=== PATIENT | female | born 1955 | race Caucasian/White ===

== ENCOUNTER 2016-10-15 09:28 | Day surgery (SDC) | payer OTHER ==
[~2016-10-15 09:28] MED LIST: Lactated Ringers 1,000 ML IV SCH; Lidocaine 1%/Sod Bicarbonate in NS 8.4% 1 ML Syringe PRN; Sodium Chloride 0.9% 10 ML Syringe FLUSH PRN
--- NOTE | 2016-10-15 09:55 | PCM.PREANE ---
Preanesthetic Assessment - Anesthesia/Transfusion/Family Hx Anesthesia History: Prior Anesthesia Without Reaction Family History of Anesthesia Reaction: No Transfusion History: No Prior Transfusion(s) - Review of Systems General: No Symptoms Pulmonary: No Symptoms Cardiovascular: No Symptoms Gastrointestinal: Difficulty swallowing Neurological: No Symptoms Other: Reports: Diabetes, Thyroid Problems - Physical Assessment NPO Status Date: 10/14/16 NPO Status Time: 19:00 (sip with pills this am) Pulse: 63 O2 Sat by Pulse Oximetry: 94 Respiratory Rate: 17 Blood Pressure: 130/59 Temperature: 96.7 F Height: 5 ft 4 in Weight: 73.21 kg ASA Class: 2 Mental Status: Alert & Oriented x3 Airway Class: Mallampati = 1 Dentition: Reports: Normal Dentition Thyro-Mental Finger Breadths: 3 Mouth Opening Finger Breadths: 3 ROM/Head Extension: Full Lungs: Clear to auscultation, Normal respiratory effort Cardiovascular: Regular Rate, Regular Rhythm - Allergies Allergies/Adverse Reactions: Allergies Allergy/AdvReac Type Severity Reaction Status Date / Time Sulfa (Sulfonamide Allergy Rash Verified 10/14/16 15:21 Antibiotics) tetracycline Allergy Rash Verified 10/14/16 15:21 ciprofloxacin [From Cipro] AdvReac Dizziness Verified 10/15/16 07:06 metronidazole [From Flagyl] AdvReac Dizziness Verified 10/15/16 07:06 - Blood Blood Available: No - Acknowledgements Anesthesia Type Planned: MAC Pt an Appropriate Candidate for the Planned Anesthesia: Yes Alternatives and Risks of Anesthesia Discussed w Pt/Guardian: Yes Pt/Guardian Understands and Agrees with Anesthesia Plan: Yes PreAnesthesia Questionnaire HEENT History: Reports: Allergic Rhinitis, Impaired Vision Cardiovascular History: Reports: High Cholesterol Respiratory History: Reports: Asthma Gastrointestinal History: Reports: Other (See Below) Other Gastrointestinal History: dysphagia SUSTAINABILITY MANAGER History: Reports: None Musculoskeletal History: Reports: Arthritis, Other (See Below) Other Musculoskeletal History: chronic hip pain, scoliosis Neurological History: Reports: None Psychiatric History: Reports: None Endocrine/Metabolic History: Reports: Hypothyroidism Hematologic History: Reports: None Immunologic History: Reports: None Oncologic (Cancer) History: Reports: None Dermatologic History: Reports: Cellulitis - Past Surgical History Head Surgeries/Procedures: Reports: None HEENT Surgical History: Reports: Naso-Sinus Surgery GI Surgical History: Reports: Appendectomy, Colonoscopy Female Surgical History: Reports: Section, Hysterectomy Endocrine Surgical History: Reports: Other (See Below) Other Endocrine Surgeries/Procedures: partial thyroidectomy Musculoskeletal Surgical History: Reports: Other (See Below) Other Musculoskeletal Surgeries/Procedures:: carpal tunnel surgery - SUBSTANCE USE Smoking Status *Q: Never Smoker Tobacco Use Within Last Twelve Months: No Second Hand Smoke Exposure: No Days Per Week of Alcohol Use: 3 Number of Drinks Per Day: 2 Total Drinks Per Week: 6 Recreational Drug Use History: No - HOME MEDS Home Medications: Home Meds Aspirin [Ecotrin] 81 mg PO DAILY 10/14/16 [History] Cetirizine [ZyrTEC] 10 mg PO BEDTIME 10/14/16 [History] Fish Oil/[place]-3 Fatty Acids [Fish Oil 1,000 MG] 1,000 mg PO DAILY 10/14/16 [ History] Flaxseed Oil [Flax Oil] 1,000 mg PO DAILY 10/14/16 [History] Gluc 2KCl/Chondr/Bere Hy/Hy Ac [Glucosamine & Chondroitin Cap] 1 cap PO BID [History] Levothyroxine [Synthroid] 100 mcg PO DAILY 10/14/16 [History] Meloxicam 15 mg PO DAILY 10/14/16 [History] Multivitamin [Flintstones] 1 tab PO DAILY 10/14/16 [History] Pyridoxine HCl [Vitamin B-6] 100 mg PO BID 10/14/16 [History] Rosuvastatin Calcium 5 mg PO DAILY 10/14/16 [History] Ubidecarenone [Coq-10] 100 mg PO DAILY 10/14/16 [History] traMADol [Ultram] 50 mg PO DAILY PRN 10/14/16 [History] metFORMIN HCl [Metformin HCl ER] 750 mg PO DAILY 10/15/16 [History] - CURRENT (IN HOUSE) MEDS Current Meds: Current Medications Lactated Ringer's (Ringers, Lactated) 1,000 mls @ 125 mls/hr IV ASDIRECTED FARHAT Stop: 10/15/16 23:00 Lidocaine/Sodium Bicarbonate (Buffered Lidocaine 1% In Ns 8.4%) 0.25 ml .XX ONETIME PRN PRN Reason: Prior to IV Start Stop: 10/15/16 18:00 Sodium Chloride (Saline Flush) 10 ml FLUSH ASDIRECTED PRN PRN Reason: Keep Vein Open Stop: 10/15/16 18:00
[2016-10-15] MEDS ORDERED: Propofol 200 MG/20 ML SDV ONE (11:22)
--- NOTE | 2016-10-15 11:22 | PCM48HPAN ---
Post Anesthesia Note - EVALUATION WITHIN 48HRS OF ANESTHETIC Vital Signs in Normal Range: Yes Patient Participated in Evaluation: Yes Respiratory Function Stable: Yes Airway Patent: Yes Cardiovascular Function Stable: Yes Hydration Status Stable: Yes Pain Control Satisfactory: Yes Nausea and Vomiting Control Satisfactory: Yes Mental Status Recovered: Yes
--- NOTE | 2016-10-15 11:25 | PCM.OPNOTE ---
- General Post-Op/Procedure Note Date of Surgery/Procedure: 10/15/16 Operative Procedure(s): Esophagogastroduodenoscopy with proximal and distal esophageal biopsies Findings: Moderate size sliding hiatal hernia with endoscopic mild GE junction esophagitis Pre Op Diagnosis: Dysphagia Post-Op Diagnosis: 1. Symptomatic hiatal hernia. 2. Mild grade 1 esophagitis Anesthesia Technique: MAC, Moderate sedation Primary Surgeon: Michael Sadler Pathology: Proximal (at 10 cm ) and distal esophageal biopsies EBL in mLs: 0 Complications: None Condition: Good Free Text/Narrative:: After adequate IV sedation and analgesia was obtained with monitoring the patient was placed on her left side. Through a bite block a lubricated upper endoscope was inserted into the esophagus and advanced under direct vision to the stomach. Additional air was given here followed by passive of the scope into the second part of the duodenum. The second and first portions were endoscopically normal with no inflammatory changes. The antrum was unremarkable as well endoscopic. In the retroflexed view there was a moderate size sliding hiatal hernia. The fundus and cardiac regions were normal. The rugal folds were grossly normal as well. The scope was withdrawn into the herniated segment of stomach. There are no stasis change in this area. The GE junction was sharp and was remarkable for mild erythematous change and slightly friable in one area. I took 2 biopsies for histologic review. At 10 cm from the incisors I took 2 more esophageal biopsies for histologic review. The body of the esophagus was otherwise unremarkable. The vocal cords were briefly visualized and were grossly normal. Hospitality Housekeeper photographs were taken for the patient and for the record.
[2016-10-15 12:19] VITALS: BP 118/52
== END 2016-10-15 12:00 | disposition home or self-care (01) ==
LOC: JD.SDS 09:28
PROVIDERS: ATTEND Surgery
PROC: 0DB58ZX Excision of Esophagus, Via Natural or Artificial Opening Endoscopic, Diagnostic (ICD-10-PCS; principal; 2016-10-15)
DX: K21.0 Gastro-esophageal reflux disease with esophagitis (principal); K44.9 Diaphragmatic hernia without obstruction or gangrene; M19.90 Unspecified osteoarthritis, unspecified site; J45.909 Unspecified asthma, uncomplicated; E78.00 Pure hypercholesterolemia, unspecified; E78.5 Hyperlipidemia, unspecified; E89.0 Postprocedural hypothyroidism; M25.559 Pain in unspecified hip; G89.29 Other chronic pain; Z88.1 Allergy status to other antibiotic agents; Z88.2 Allergy status to sulfonamides; Z79.82 Long term (current) use of aspirin; Z79.899 Other long term (current) drug therapy; Z90.49 Acquired absence of other specified parts of digestive tract; Z90.710 Acquired absence of both cervix and uterus; Z98.890 Other specified postprocedural states
CPT/HCPCS: 43239; 82962; 88305; J7120; J2704

== ENCOUNTER 2017-01-08 16:47 | Inpatient (IN) | payer OTHER ==
[2017-01-08] MEDS ORDERED: Albuterol 0.083% 2.5 MG/3 ML Neb Soln NEB ONE ×3 (17:01→18:32)
[2017-01-08] MEDS ORDERED: Sodium Chloride 0.9% 10 ML Syringe FLUSH PRN (17:01)
[2017-01-08] MEDS ORDERED: Sodium Chloride 0.9% 500 ML IV ONE (17:01)
--- NOTE | 2017-01-08 17:02 | EDM.PDOC ---
<Caprice Gillespie - Last Filed: 01/08/17 22:36> ED HPI GENERAL MEDICAL PROBLEM - General Chief Complaint: Respiratory Problem Stated Complaint: SOB Time Seen by Provider: 01/08/17 17:01 Source of Information: Reports: Patient, RN Notes Reviewed History Limitations: Reports: No Limitations - History of Present Illness INITIAL COMMENTS - FREE TEXT/NARRATIVE: 61 year old female presents to the ED with sudden onset of shortness of breath and diaphoresis that started this morning. She reports a 4 day history of fatigue, body aches, and joint pain. Today she suddenly developed the shortness of breath and became diaphoretic. She reports feeling feverish and chilled at times. She has not checked her temperature. She denies cough, chest pain, lower extremity edema. She has no history of cardiac history or CHF. She reports a history of asthma but denies any recent asthma symptoms prior to today. She denies any other pulmonary conditions. She denies unilateral calf pain, erythema or swelling. She has no history of clotting disorders. She is not on any hormone replacement therapy. She drove to [place] last weekend and was in [place] over Labor Day weekend. She denies rash or tick bite. She does have a mosquito bite to her right arm and is unsure when she was bit. She denies abdominal pain, nausea, vomiting, or diarrhea. She denies urinary symptoms. She denies any additional medical history. - Related Data Allergies Allergy/AdvReac Type Severity Reaction Status Date / Time Sulfa (Sulfonamide Allergy Rash Verified 01/09/17 01:21 Antibiotics) tetracycline Allergy Rash Verified 01/09/17 01:21 ciprofloxacin [From Cipro] AdvReac Dizziness Verified 01/09/17 01:21 metronidazole [From Flagyl] AdvReac Dizziness Verified 01/09/17 01:21 Home Meds: Home Meds Aspirin [Ecotrin] 81 mg PO DAILY 10/14/16 [History] Cetirizine [ZyrTEC] 10 mg PO BEDTIME 10/14/16 [History] Fish Oil/[place]-3 Fatty Acids [Fish Oil 1,000 MG] 1,000 mg PO DAILY 10/14/16 [ History] Flaxseed Oil [Flax Oil] 1,000 mg PO DAILY 10/14/16 [History] Gluc 2KCl/Chondr/Bere Hy/Hy Ac [Glucosamine & Chondroitin Cap] 1 cap PO BID [History] Levothyroxine [Synthroid] 100 mcg PO DAILY 10/14/16 [History] Meloxicam 15 mg PO DAILY 10/14/16 [History] Multivitamin [Flintstones] 1 tab PO DAILY 10/14/16 [History] Pyridoxine HCl [Vitamin B-6] 100 mg PO BID 10/14/16 [History] Rosuvastatin Calcium 5 mg PO DAILY 10/14/16 [History] Ubidecarenone [Coq-10] 100 mg PO DAILY 10/14/16 [History] traMADol [Ultram] 50 mg PO DAILY PRN 10/14/16 [History] metFORMIN HCl [Metformin HCl ER] 750 mg PO DAILY 10/15/16 [History] Past Medical History HEENT History: Reports: Allergic Rhinitis, Impaired Vision Cardiovascular History: Reports: High Cholesterol Respiratory History: Reports: Asthma Gastrointestinal History: Reports: Other (See Below) Other Gastrointestinal History: dysphagia [employer]CH[employer]ICIAN History: Reports: None Musculoskeletal History: Reports: Arthritis, Other (See Below) Other Musculoskeletal History: chronic hip pain, scoliosis Neurological History: Reports: None Psychiatric History: Reports: None Endocrine/Metabolic History: Reports: Hypothyroidism Hematologic History: Reports: None Immunologic History: Reports: None Oncologic (Cancer) History: Reports: None Dermatologic History: Reports: Cellulitis - Past Surgical History Head Surgeries/Procedures: Reports: None HEENT Surgical History: Reports: Naso-Sinus Surgery GI Surgical History: Reports: Appendectomy, Colonoscopy Female Surgical History: Reports: Section, Hysterectomy Endocrine Surgical History: Reports: Other (See Below) Other Endocrine Surgeries/Procedures: partial thyroidectomy Musculoskeletal Surgical History: Reports: Other (See Below) Other Musculoskeletal Surgeries/Procedures:: carpal tunnel surgery Social & Family History - Tobacco Use Smoking Status *Q: Never Smoker Second Hand Smoke Exposure: No - Alcohol Use Days Per Week of Alcohol Use: 3 Number of Drinks Per Day: 2 Total Drinks Per Week: 6 - Recreational Drug Use Recreational Drug Use: No Drug Use in Last 12 Months: No ED ROS GENERAL - Review of Systems Review Of Systems: See Below Constitutional: Reports: Malaise, Weakness, Fatigue, Diaphoresis. Denies: Fever Respiratory: Reports: Shortness of Breath, Wheezing. Denies: Pleuritic Chest Pain, Cough Cardiovascular: Reports: Dyspnea on Exertion. Denies: Chest Pain, Edema, Palpitations, Syncope GI/Abdominal: Reports: No Symptoms. Denies: Abdominal Pain, Constipation, Diarrhea, Nausea, Vomiting : Reports: No Symptoms. Denies: Dysuria, Flank Pain, Frequency Musculoskeletal: Reports: Joint Pain Skin: Reports: No Symptoms. Denies: Rash Neurological: Denies: Confusion, Dizziness, Numbness, Tingling, Weakness ED EXAM, GENERAL - Physical Exam Exam: See Below Exam Limited By: No Limitations General Appearance: Alert, WD/WN, Anxious, Moderate Distress Eye Exam: Bilateral Eye: EOMI, PERRL Respiratory/Chest: Respiratory Distress, Decreased Breath Sounds, Crackles, Rhonchi (diffuse ), Wheezing (diffuse ) Cardiovascular: No Edema, No Murmur, Tachycardia GI/Abdominal: Normal Bowel Sounds, Soft, Non-Tender, No Distention Extremities: Normal Inspection, Normal Range of Motion, Non-Tender, Redness. No : Gerri's Sign Neurological: Alert, No Motor/Sensory Deficits Skin Exam: Warm, Intact, Normal Color, No Rash, Diaphoretic EKG INTERPRETATION EKG Date: 01/08/17 Time: 16:56 Rhythm: NSR (Sinus tach) Rate (Beats/Min): 123 [place]: Normal P-Wave: Present QRS: Normal ST-T: Normal QT: Normal EKG Interpretation Comments: EKG read by Dr. Brooke Link. NSR, No STEMI Course - Vital Signs Last Recorded V/S: Last Vital Signs Temp 36.6 C 01/09/17 04:00 Pulse 102 H 01/09/17 02:00 Resp 25 H 01/09/17 06:00 BP 123/74 01/09/17 06:00 Pulse Ox 96 01/09/17 06:00 - Orders/Labs/Meds Orders: Active Orders 24 hr Category Date Time Status Chest Abdomen Pelvis wo Cont [CT] Stat Exams 01/08/17 18:14 Ordered CULTURE BLOOD [BC] Stat Lab 01/08/17 17:23 Received CULTURE BLOOD [BC] Stat Lab 01/08/17 17:32 Results Sodium Chloride 0.9% [Saline Flush] Med 01/08/17 17:01 Active 10 ml FLUSH ASDIRECTED PRN Blood Culture x2 Reflex Set [OM.PC] Stat Oth 01/08/17 17:00 Ordered Peripheral IV Insertion Adult [OM.PC] Stat Oth 01/08/17 17:01 Ordered EKG 12 Lead [EK] Stat Ther 01/08/17 17:00 Ordered Medication Orders Acetaminophen (Tylenol) 650 mg PO Q4H PRN PRN Reason: Pain (Mild 1-3)/fever Albuterol/Ipratropium (Duoneb 3.0-0.5 Mg/3 Ml) 3 ml NEB Q4H PRN PRN Reason: Shortness Of Breath/wheezing Aspirin (Halfprin) 81 mg PO DAILY [facility] Bisacodyl (Dulcolax) 5 mg PO DAILY PRN PRN Reason: Constipation Docusate Sodium (Colace) 100 mg PO BID PRN PRN Reason: Constipation Hydralazine HCl (Apresoline) 20 mg IVPUSH Q4H PRN PRN Reason: Hypertension Hydrocortisone Sodium Succinate (Solu-Cortef) 100 mg IVPUSH Q6H [facility] Last Admin: 01/09/17 02:19 Dose: 100 mg Admin: 01/08/17 22:40 Dose: 100 mg Hydromorphone HCl (Dilaudid) 1 mg IVPUSH Q3H PRN PRN Reason: Pain (severe 7-10) Lactated Ringer's (Ringers, Lactated) 1,000 mls @ 999 mls/hr IV ASDIRECTED [facility] Last Admin: 01/08/17 23:36 Dose: 999 mls/hr Infusion: 01/08/17 23:19 Dose: 999 mls/hr Admin: 01/08/17 22:18 Dose: 999 mls/hr Promethazine HCl 12.5 mg/ (Sodium Chloride) 50.5 mls @ 100 mls/hr IV Q6H PRN PRN Reason: Nausea/Vomiting Levofloxacin/Dextrose 750 mg/ (Premix) 150 mls @ 100 mls/hr IV Q48H [facility] Meropenem 1 gm/ Sodium (Chloride) 100 mls @ 200 mls/hr IV Q8H [facility] Last Admin: 01/09/17 04:03 Dose: 200 mls/hr Infusion: 01/08/17 22:46 Dose: 200 mls/hr Admin: 01/08/17 22:16 Dose: 200 mls/hr Vancomycin HCl 1 gm/ Sodium (Chloride) 250 mls @ 250 mls/hr IV Q24H [facility] Last Admin: 01/08/17 22:17 Dose: 250 mls/hr Sodium Chloride (Normal Saline) 1,000 mls @ 250 mls/hr IV ASDIRECTED [facility] Last Admin: 01/09/17 04:40 Dose: 250 mls/hr Infusion: 01/09/17 04:37 Dose: 250 mls/hr Admin: 01/09/17 00:37 Dose: 250 mls/hr Levothyroxine Sodium (Synthroid) 100 mcg PO DAILY [facility] Loratadine (Claritin) 10 mg PO BEDTIME [facility] Last Admin: 01/08/17 22:17 Dose: 10 mg Lorazepam (Ativan) 2 mg IVPUSH Q4H PRN PRN Reason: Seizures Lorazepam (Ativan) 1 mg IVPUSH Q3H PRN PRN Reason: dyspnea, anxiety Last Admin: 01/09/17 02:19 Dose: 1 mg Magnesium Hydroxide (Milk Of Magnesia) 30 ml PO Q12H PRN PRN Reason: Constipation Metoprolol Tartrate (Lopressor) 5 mg IVPUSH Q4H PRN PRN Reason: Tachycardia Morphine Sulfate (Morphine) 1 mg IVPUSH Q4H PRN PRN Reason: Dyspnea Last Admin: 01/09/17 02:19 Dose: 1 mg Multivitamins (Thera) 1 each PO DAILY [facility] Non-Formulary Medication (Ubidecarenone) 100 mg PO DAILY [facility] Ondansetron HCl (Zofran) 4 mg IV Q6H PRN PRN Reason: Nausea/Vomiting Oxycodone HCl (Oxycodone) 5 mg PO Q4H PRN PRN Reason: Pain (moderate 4-6) Pantoprazole Sodium (Protonix Iv) 40 mg IV Q12HR [facility] Last Admin: 01/08/17 22:16 Dose: 40 mg Polyethylene Glycol (Miralax) 17 gm PO DAILY PRN PRN Reason: Constipation Pyridoxine HCl (Vitamin B6-Pyridoxine) 100 mg PO BID [facility] Last Admin: 01/08/17 22:17 Dose: 100 mg Senna/Docusate Sodium (Senna Plus) 1 tab PO BID PRN PRN Reason: Constipation Sodium Chloride (Saline Flush) 10 ml FLUSH ASDIRECTED PRN PRN Reason: Keep Vein Open Last Admin: 01/08/17 17:47 Dose: 10 ml Temazepam (Restoril) 15 mg PO BEDTIME PRN PRN Reason: Sleep Tramadol HCl (Ultram) 50 mg PO DAILY PRN PRN Reason: Pain Vancomycin HCl (Pharmacy To Dose - Vancomycin) 0 dose .XX ASDIRECTED PRN PRN Reason: RX TO DOSE IV VANCOMYCIN Labs: Laboratory Tests 01/08/17 01/08/17 01/08/17 Range/Units 17:00 17:00 17:00 WBC 19.11 H (3.98-10.04) K/mm3 RBC 6.15 H (3.98-5.22) M/mm3 Hgb 18.8 H (11.2-15.7) gm/L Hct 54.5 H (34.1-44.9) % MCV 88.6 (79.4-94.8) fl MCH 30.6 (25.6-32.2) pg MCHC 34.5 (32.2-35.5) g/dl RDW Std Deviation 43.7 (36.4-46.3) fL Plt Count 46 L (182-369) K/mm3 MPV 11.8 (9.4-12.3) fl Neutrophils % (Manual) 62 H (40-60) % Band Neutrophils % 11 H (0-10) % Lymphocytes % (Manual) 23 (20-40) % Atypical Lymphs % 0 % Monocytes % (Manual) 0 L (2-10) % Eosinophils % (Manual) 2 (0.7-5.8) % Basophils % (Manual) 2 H (0.1-1.2) Platelet Estimate Decreased Plt Morphology Comment Normal RBC Morph Comment Normal PT (8.0-13.0) SECONDS INR APTT (22-36) SECONDS D-Dimer, Quantitative 1.34 H (0.19-0.59) mg/L Sodium 137 (136-145) mEq/L Potassium 3.7 (3.5-5.1) mEq/L Chloride 101 (98-107) mEq/L Carbon Dioxide 14 L (21-32) mEq/L Anion Gap 25.7 H (5-15) BUN 37 H (7-18) mg/dL Creatinine 2.1 H (0.55-1.02) mg/dL Est Cr Clr Drug Dosing 23.57 mL/min Estimated GFR (MDRD) 24 (>60) mL/min BUN/Creatinine Ratio 17.6 (14-18) Glucose 150 H (74-106) mg/dL Lactic Acid (0.4-2.0) mmol/L Calcium 9.2 (8.5-10.1) mg/dL Total Bilirubin 0.9 (0.2-1.0) mg/dL AST 193 H (15-37) U/L ALT 230 H (14-59) U/L Alkaline Phosphatase 373 H (46-116) U/L Troponin I < 0.017 (0.00-0.056) ng/mL C-Reactive Protein 19.6 H* (<1.0) mg/dL NT-Pro-B Natriuret Pep (0-125) pg/mL Total Protein 7.8 (6.4-8.2) g/dl Albumin 3.3 L (3.4-5.0) g/dl Globulin 4.5 gm/dL Albumin/Globulin Ratio 0.7 L (1-2) Monoscreen (NEGATIVE) 01/08/17 01/08/17 01/08/17 Range/Units 17:00 17:00 17:08 WBC (3.98-10.04) K/mm3 RBC (3.98-5.22) M/mm3 Hgb (11.2-15.7) gm/L Hct (34.1-44.9) % MCV (79.4-94.8) fl MCH (25.6-32.2) pg MCHC (32.2-35.5) g/dl RDW Std Deviation (36.4-46.3) fL Plt Count (182-369) K/mm3 MPV (9.4-12.3) fl Neutrophils % (Manual) (40-60) % Band Neutrophils % (0-10) % Lymphocytes % (Manual) (20-40) % Atypical Lymphs % % Monocytes % (Manual) (2-10) % Eosinophils % (Manual) (0.7-5.8) % Basophils % (Manual) (0.1-1.2) Platelet Estimate Plt Morphology Comment RBC Morph Comment PT 12.1 (8.0-13.0) SECONDS INR 1.10 APTT 42 H (22-36) SECONDS D-Dimer, Quantitative (0.19-0.59) mg/L Sodium (136-145) mEq/L Potassium (3.5-5.1) mEq/L Chloride (98-107) mEq/L Carbon Dioxide (21-32) mEq/L Anion Gap (5-15) BUN (7-18) mg/dL Creatinine (0.55-1.02) mg/dL Est Cr Clr Drug Dosing mL/min Estimated GFR (MDRD) (>60) mL/min BUN/Creatinine Ratio (14-18) Glucose (74-106) mg/dL Lactic Acid (0.4-2.0) mmol/L Calcium (8.5-10.1) mg/dL Total Bilirubin (0.2-1.0) mg/dL AST (15-37) U/L ALT (14-59) U/L Alkaline Phosphatase (46-116) U/L Troponin I (0.00-0.056) ng/mL C-Reactive Protein (<1.0) mg/dL NT-Pro-B Natriuret Pep 334 H (0-125) pg/mL Total Protein (6.4-8.2) g/dl Albumin (3.4-5.0) g/dl Globulin gm/dL Albumin/Globulin Ratio (1-2) Monoscreen Negative (NEGATIVE) 01/08/17 Range/Units 17:23 WBC (3.98-10.04) K/mm3 RBC (3.98-5.22) M/mm3 Hgb (11.2-15.7) gm/L Hct (34.1-44.9) % MCV (79.4-94.8) fl MCH (25.6-32.2) pg MCHC (32.2-35.5) g/dl RDW Std Deviation (36.4-46.3) fL Plt Count (182-369) K/mm3 MPV (9.4-12.3) fl Neutrophils % (Manual) (40-60) % Band Neutrophils % (0-10) % Lymphocytes % (Manual) (20-40) % Atypical Lymphs % % Monocytes % (Manual) (2-10) % Eosinophils % (Manual) (0.7-5.8) % Basophils % (Manual) (0.1-1.2) Platelet Estimate Plt Morphology Comment RBC Morph Comment PT (8.0-13.0) SECONDS INR APTT (22-36) SECONDS D-Dimer, Quantitative (0.19-0.59) mg/L Sodium (136-145) mEq/L Potassium (3.5-5.1) mEq/L Chloride (98-107) mEq/L Carbon Dioxide (21-32) mEq/L Anion Gap (5-15) BUN (7-18) mg/dL Creatinine (0.55-1.02) mg/dL Est Cr Clr Drug Dosing mL/min Estimated GFR (MDRD) (>60) mL/min BUN/Creatinine Ratio (14-18) Glucose (74-106) mg/dL Lactic Acid 4.4 H (0.4-2.0) mmol/L Calcium (8.5-10.1) mg/dL Total Bilirubin (0.2-1.0) mg/dL AST (15-37) U/L ALT (14-59) U/L Alkaline Phosphatase (46-116) U/L Troponin I (0.00-0.056) ng/mL C-Reactive Protein (<1.0) mg/dL NT-Pro-B Natriuret Pep (0-125) pg/mL Total Protein (6.4-8.2) g/dl Albumin (3.4-5.0) g/dl Globulin gm/dL Albumin/Globulin Ratio (1-2) Monoscreen (NEGATIVE) Meds: Medications Generic Name Dose Route Start Last Admin Trade Name Freq PRN Reason Stop Dose Admin Acetaminophen 650 mg 01/08/17 20:15 Tylenol PO Q4H PRN Pain (Mild 1-3)/fever Albuterol/Ipratropium 3 ml 01/08/17 20:15 Duoneb 3.0-0.5 Mg/3 Ml NEB Q4H PRN Shortness Of Breath/wheezing Aspirin 81 mg 01/09/17 09:00 Halfprin PO DAILY [facility] Bisacodyl 5 mg 01/08/17 20:15 Dulcolax PO DAILY PRN Constipation Docusate Sodium 100 mg 01/08/17 20:15 Colace PO BID PRN Constipation Hydralazine HCl 20 mg 01/08/17 20:25 Apresoline IVPUSH Q4H PRN Hypertension Hydrocortisone Sodium Succinate 100 mg 01/08/17 20:45 01/09/17 02:19 Solu-Cortef IVPUSH 100 mg Q6H [facility] Administration Hydromorphone HCl 1 mg 01/08/17 20:15 Dilaudid IVPUSH Q3H PRN Pain (severe 7-10) Lactated Ringer's 1,000 mls @ 999 mls/hr 01/08/17 20:15 01/08/17 23:36 Ringers, Lactated IV 999 mls/hr ASDIRECTED [facility] Administration Promethazine HCl 12.5 mg/ 50.5 mls @ 100 mls/hr 01/08/17 20:15 Sodium Chloride IV Q6H PRN Nausea/Vomiting Levofloxacin/Dextrose 750 mg/ 150 mls @ 100 mls/hr 01/10/17 09:00 Premix IV Q48H [facility] Meropenem 1 gm/ Sodium 100 mls @ 200 mls/hr 01/08/17 20:45 01/09/17 04:03 Chloride IV 200 mls/hr Q8H [facility] Administration Vancomycin HCl 1 gm/ Sodium 250 mls @ 250 mls/hr 01/08/17 22:00 01/08/17 22: 17 Chloride IV 250 mls/hr Q24H [facility] Administration Sodium Chloride 1,000 mls @ 250 mls/hr 01/09/17 01:00 01/09/17 04:40 Normal Saline IV 250 mls/hr ASDIRECTED [facility] Administration Levothyroxine Sodium 100 mcg 01/09/17 09:00 Synthroid PO DAILY [facility] Loratadine 10 mg 01/08/17 21:00 01/08/17 22:17 Claritin PO 10 mg BEDTIME [facility] Administration Lorazepam 2 mg 01/08/17 20:25 Ativan IVPUSH Q4H PRN Seizures Lorazepam 1 mg 01/09/17 02:07 01/09/17 02:19 Ativan IVPUSH 1 mg Q3H PRN Administration dyspnea, anxiety Magnesium Hydroxide 30 ml 01/08/17 20:15 Milk Of Magnesia PO Q12H PRN Constipation Metoprolol Tartrate 5 mg 01/08/17 20:25 Lopressor IVPUSH Q4H PRN Tachycardia Morphine Sulfate 1 mg 01/09/17 02:06 01/09/17 02:19 Morphine IVPUSH 1 mg Q4H PRN Administration Dyspnea Multivitamins 1 each 01/09/17 09:00 Thera PO DAILY [facility] Non-Formulary Medication 100 mg 01/09/17 09:00 Ubidecarenone PO DAILY [facility] Ondansetron HCl 4 mg 01/08/17 20:15 Zofran IV Q6H PRN Nausea/Vomiting Oxycodone HCl 5 mg 01/08/17 20:22 Oxycodone PO Q4H PRN Pain (moderate 4-6) Pantoprazole Sodium 40 mg 01/08/17 21:00 01/08/17 22:16 Protonix Iv IV 40 mg Q12HR [facility] Administration Polyethylene Glycol 17 gm 01/08/17 20:15 Miralax PO DAILY PRN Constipation Pyridoxine HCl 100 mg 01/08/17 21:00 01/08/17 22:17 Vitamin B6-Pyridoxine PO 100 mg BID [facility] Administration Senna/Docusate Sodium 1 tab 01/08/17 20:15 Senna Plus PO BID PRN Constipation Sodium Chloride 10 ml 01/08/17 17:01 01/08/17 17:47 Saline Flush FLUSH 10 ml ASDIRECTED PRN Administration Keep Vein Open Temazepam 15 mg 01/08/17 20:15 Restoril PO BEDTIME PRN Sleep Tramadol HCl 50 mg 01/08/17 20:14 Ultram PO DAILY PRN Pain Vancomycin HCl 0 dose 01/08/17 20:30 Pharmacy To Dose - Vancomycin .XX ASDIRECTED PRN RX TO DOSE IV VANCOMYCIN Discontinued Medications Generic Name Dose Route Start Last Admin Trade Name Freq PRN Reason Stop Dose Admin Albuterol 2.5 mg 01/08/17 17:01 01/08/17 17:09 Proventil Neb Soln [facility] 01/08/17 17:02 2.5 mg ONETIME ONE Administration Albuterol 2.5 mg 01/08/17 18:31 01/08/17 18:36 Proventil Neb Soln [facility] 01/08/17 18:32 2.5 mg ONETIME ONE Administration Albuterol 2.5 mg 01/08/17 18:32 01/08/17 18:36 Proventil Neb Soln [facility] 01/08/17 18:33 2.5 mg ONETIME ONE Administration Albuterol/Ipratropium 3 ml 01/08/17 18:17 01/08/17 18:28 Duoneb 3.0-0.5 Mg/3 Ml NEB 01/08/17 18:18 3 ml ONETIME ONE Administration Sodium Chloride 500 mls @ 999 mls/hr 01/08/17 17:01 01/08/17 17:08 Normal Saline IV 01/08/17 17:31 999 mls/hr ONETIME ONE Administration Levofloxacin/Dextrose 500 mg/ 100 mls @ 100 mls/hr 01/08/17 17:22 01/08/17 18 :25 Premix IV 01/08/17 18:21 100 mls/hr ONETIME ONE Administration Sodium Chloride Confirm 01/08/17 18:23 01/08/17 18:44 Normal Saline Administered 01/08/17 18:24 Not Given Dose 1,000 mls @ as directed .ROUTE .STK-MED ONE Sodium Chloride 1,000 mls @ 999 mls/hr 01/08/17 18:43 01/08/17 18:20 Normal Saline IV 01/08/17 19:43 999 mls/hr ONETIME ONE Administration Magnesium Sulfate 2 gm/ Premix 50 mls @ 25 mls/hr 01/08/17 19:11 01/08/17 19: 19 IV 01/08/17 21:10 25 mls/hr ONETIME ONE Administration Levofloxacin/Dextrose 750 mg/ 150 mls @ 100 mls/hr 01/08/17 20:26 01/08/17 23 :40 Premix IV 01/08/17 21:55 Not Given ONETIME ONE Lorazepam 0.5 mg 01/08/17 17:10 01/08/17 17:15 Ativan IVPUSH 01/08/17 17:11 0.5 mg ONETIME ONE Administration Lorazepam 1 mg 01/08/17 20:15 01/08/17 22:21 Ativan IV 1 mg Q6H PRN Administration Anxiety Magnesium Sulfate 2 gm 01/08/17 19:00 Magnesium Sulfate 50% IV 01/08/17 19:01 ONETIME ONE Methylprednisolone Sodium Succinate 125 mg 01/08/17 18:31 01/08/17 18:35 Solu-Medrol IVPUSH 01/08/17 18:32 125 mg ONETIME ONE Administration Vancomycin HCl 1 mg 01/08/17 20:30 Vancomycin IV Q12H [facility] - Re-Assessments/Exams Free Text/Narrative Re-Assessment/Exam: [id number] Chest x-ray reveals increased lung markings with possible pulmonary vascular congestion. There is a right lower lobe infiltrate. There is no obvious pleural effusion. Costophrenic angles are normal. Cardiac size is normal. Levaquin 500mg IV ordered. 1800 Labs are back. CBC reveals WBC 19,000 with 11% bands. Platelets are low at 46. CRP is 19.6. Lactic acid 4.4. CMP reveals Na 137, K 3.7, Chloride 101, Carbon dioxide 14, anion gap 25.7, BUn 37, creatinine 2.1, glucose 150. Liver enzymes are elevated. Pro-BNP is 334. Troponin is WNL. INR 1.10. Ptt 42. Blood cultures are pending. D-dimer is elevated at 1.34. Unable to perform PE study at this time due to kidney function. She will likely need VQ scan when stable. 01/08/17 181 The patient remains tachycardic after 1 liter NS bolus. Her BP is 80-90s systolic. She is requiring 6 liters of NC and remains in the high 80s for oxygen saturation. I asked Dr. Brooke Link to see the patient and review her labs. At this time she recommends that we do 3 [id number] nebs due to diffuse wheezing. We will also give Solu-medrol 125mg IV. She also recommends a CT of chest, abdomen, pelvis to evaluate for possible malignancy. 01/08/17 19:00 Patient is more tachypnic with worsening respiratory distress. Dr. Link and I again evaluated the patient. Dr. Link recommends that we try Bipap at this time. She also recommends Mag Sulfate [address] is on hold at this time due to patient's worsening respiratory status. 01/08/17 19:37 Patient's respiratory status is improving on bipap. I spoke to Dr. Fernandes who has accepted care of the patient. She will be admitted to the ICU for Sepsis, hypoxemia, respiratory distress, and pneumonia. Departure - Departure Time of Disposition: 21:49 Disposition: Admitted As Inpatient 67 Condition: Serious Clinical Impression: Septicemia, Hypoxemia, Respiratory distress Pneumonia Qualifiers: Pneumonia type: due to unspecified organism Laterality: right Lung location: lower lobe of lung Qualified Code(s): J18.1 - Lobar pneumonia, unspecified organism - Discharge Information <Brooke Link - Last Filed: 01/09/17 07:52> Course - Re-Assessments/Exams Free Text/Narrative Re-Assessment/Exam: 01/08/17 19:19 Saw at request of Caprice. Briefly, 61 y/o F with questionable asthma but not on inhaled meds, also non-insulin dependent DM, presents with 3 days of worsening malaise, fatigue, and SOB. No chest pain. Feels achy all over. +subjective fever. Here, she is ill appearing, normal mental status, I assessed her after multiple nebs and she continues to have wheezing in all mariano and coarse rales at the R base. CXR suggests pna, I suspect inflammatory reactive airway disease component as well. Getting abx now. Added solu-medrol and magnesium. Given continued marked SOB and tachypnea on nonrebreather after multiple nebs, requested bibap. She is now breathing more comfortably. Mental status normal. SpO2 in 90's. Has additional lab abnormalities - elevated creatinine, mildly elevated LFT's, low platelets. Etiology of these abnormalities not clear - may be prerenal as far as elevated Creatinine goes but she may need further inpatient eval of other abnormalities. Anticipate admission. Critical Care Note - Critical Care Note Total Time (mins): 35
[2017-01-08] MEDS ORDERED: LORazepam 2 MG/ML MDV IVPUSH ONE (17:10)
[2017-01-08] MEDS ORDERED: Levofloxacin/Dextrose 5%-Water 500 MG in Premix Bag 1 BAG IV ONE (17:22)
[2017-01-08] MEDS ORDERED: Albuterol/Ipratropium 3.0-0.5 MG/3 ML Neb Soln NEB ONE (18:17)
[2017-01-08] MEDS ORDERED: Sodium Chloride 0.9% 1,000 ML ONE (18:23)
[2017-01-08] MEDS ORDERED: methylPREDNISolone Sodium Succinate 125 MG/2 ML SDV IVPUSH ONE (18:31)
[2017-01-08] MEDS ORDERED: Sodium Chloride 0.9% 1,000 ML IV ONE (18:43)
[2017-01-08] MEDS ORDERED: Magnesium Sulfate (4.06 MEQ/ML) 1 GM/2 ML SDV IV ONE (19:00)
[2017-01-08] MEDS ORDERED: Magnesium Sulfate/Water 2 GM in Premix Bag 1 BAG IV ONE (19:11)
[2017-01-08] MEDS ORDERED: traMADol 50 MG Tab PO PRN (20:14)
--- NOTE | 2017-01-08 20:14 | PCM.HP ---
H&P History of Present Illness - General Date of Service: 01/08/17 Admit Problem/Dx: Sepsis Source of Information: Patient, Family, Old Records, RN Notes Reviewed History Limitations: Reports: Respiratory Distress - History of Present Illness Initial Comments - Free Text/Narative: This is a 61 year old white female with past medical history of impaired vision , allergic rhinitis, hyperlipidemia, asthma, dysphagia, osteoarthritis, chronic keep pain, scoliosis, hypothyroidism, and DM2 who presents to the emergency department with sudden onset of shortness of breath along with diaphoresis that started this morning. Her chief complaints are associated with history of fatigue, body aches, and joint pain that started 4 days ago. She also admits to feeling feverish and chills at times. She denies any cough, chest pain, or gastrointestinal complaints. Patient carries a history of asthma but no COPD. She denies any history of blood disorders or cardiomyopathy. She denies any unusual dietary drinks. She reports some recent travel to [place] last weekend as well as in [place] over the Weekend. She denies any sick contact. However she feels she may have been bitten by a mosquito to her right arm. Her initial workup in the emergency department shows a CBC remarkable for WBC of 19.11, RBC of 6.15, hemoglobin of 18.8, hematocrit of 54.5, platelet of 46, neutrophils of 62% with bands of 11%, and basophils of 2%. Her APTT is 42 and d- dimer is 1.34. Her chemistry is remarkable for a CO2 of 14, anion gap of 25.7, BUN of 37, creatinine of 2.1, glucose of 150, lactic acid of 4.4, AST of 193, ALT of 230, alkaline phosphatase of 373, C-reactive protein of 19.6, proBNP of 334, and albumin of 3.3. Her initial troponin is negative at less than 0.017. Her chest x-ray shows diffuse increased pulmonary markings. There is a subtle right lower lobe infiltrate. Patient received initial treatment emergency department. She is being admitted for sepsis secondary to probable pneumonia +/- viral illness. She is full code. sore throat Pain Score (Numeric/FACES): 4 headache Pain Score (Numeric/FACES): 4 - Related Data Allergies/Adverse Reactions: Allergies Allergy/AdvReac Type Severity Reaction Status Date / Time Sulfa (Sulfonamide Allergy Rash Verified 01/09/17 01:21 Antibiotics) tetracycline Allergy Rash Verified 01/09/17 01:21 ciprofloxacin [From Cipro] AdvReac Dizziness Verified 01/09/17 01:21 metronidazole [From Flagyl] AdvReac Dizziness Verified 01/09/17 01:21 Home Medications: Home Meds Aspirin [Ecotrin] 81 mg PO DAILY 10/14/16 [History] Cetirizine [ZyrTEC] 10 mg PO BEDTIME 10/14/16 [History] Fish Oil/[place]-3 Fatty Acids [Fish Oil 1,000 MG] 1,000 mg PO DAILY 10/14/16 [ History] Flaxseed Oil [Flax Oil] 1,000 mg PO DAILY 10/14/16 [History] Gluc 2KCl/Chondr/Bere Hy/Hy Ac [Glucosamine & Chondroitin Cap] 1 cap PO BID [History] Levothyroxine [Synthroid] 100 mcg PO DAILY 10/14/16 [History] Meloxicam 15 mg PO QPM 10/14/16 [History] Multivitamin [Flintstones] 1 tab PO DAILY 10/14/16 [History] Pyridoxine HCl [Vitamin B-6] 100 mg PO BID 10/14/16 [History] Rosuvastatin Calcium 5 mg PO DAILY 10/14/16 [History] Ubidecarenone [Coq-10] 100 mg PO DAILY 10/14/16 [History] traMADol [Ultram] 50 mg PO DAILY PRN 10/14/16 [History] metFORMIN HCl [Metformin HCl ER] 750 mg PO QPM 10/15/16 [History] Past Medical History HEENT History: Reports: Allergic Rhinitis, Impaired Vision Cardiovascular History: Reports: High Cholesterol Respiratory History: Reports: Asthma Gastrointestinal History: Reports: Other (See Below) Other Gastrointestinal History: dysphagia [employer] SPECIALIST History: Reports: None Musculoskeletal History: Reports: Arthritis, Other (See Below) Other Musculoskeletal History: chronic hip pain, scoliosis Neurological History: Reports: None Psychiatric History: Reports: None Endocrine/Metabolic History: Reports: Hypothyroidism Hematologic History: Reports: None Immunologic History: Reports: None Oncologic (Cancer) History: Reports: None Dermatologic History: Reports: Cellulitis - Past Surgical History Head Surgeries/Procedures: Reports: None HEENT Surgical History: Reports: Naso-Sinus Surgery GI Surgical History: Reports: Appendectomy, Colonoscopy Female Surgical History: Reports: Section, Hysterectomy Endocrine Surgical History: Reports: Other (See Below) Other Endocrine Surgeries/Procedures: partial thyroidectomy Musculoskeletal Surgical History: Reports: Other (See Below) Other Musculoskeletal Surgeries/Procedures:: carpal tunnel surgery Social & Family History - Family History Family Medical History: Noncontributory - Tobacco Use Smoking Status *Q: Never Smoker Second Hand Smoke Exposure: No - Caffeine Use Caffeine Use: Reports: Soda - Alcohol Use Days Per Week of Alcohol Use: 3 Number of Drinks Per Day: 2 Total Drinks Per Week: 6 - Recreational Drug Use Recreational Drug Use: No Drug Use in Last 12 Months: No H&P Review of Systems - Review of Systems: Review Of Systems: See Below General: Reports: Malaise, Weakness, Fatigue HEENT: Reports: No Symptoms Pulmonary: Reports: Shortness of Breath, Wheezing Cardiovascular: Reports: Dyspnea on Exertion, Syncope, Claudication, Blood Pressure Problem. Denies: Chest Pain, Palpitations, Orthopnea, Lightheadedness Gastrointestinal: Denies: Abdominal Pain, Decreased Appetite, Nausea, Vomiting Genitourinary: Reports: No Symptoms Musculoskeletal: Reports: Joint Pain, Muscle Pain Skin: Denies: Cyanosis, Jaundice, Mottled, Pallor, Diaphoresis, Pruritis, Rash, Erythema, Wound Psychiatric: Denies: Confusion, Depression, Cravings, Hallucinations, Suicidal Ideation, Homicidal Ideation Neurological: Reports: Weakness. Denies: Confusion, Headache, Numbness, Pre- Existing Deficit, Seizure, Syncope, Tingling, Tremors, Trouble Speaking, Difficulty Walking, Change in Speech, Gait Disturbance Hematologic/Lymphatic: Reports: No Symptoms Immunologic: Reports: No Symptoms Exam - Exam Exam: See Below - Vital Signs Vital Signs: Last Vital Signs Temp 35.8 C 01/08/17 16:52 Pulse 130 H 01/08/17 16:52 Resp BP 99/59 L 01/08/17 16:52 Pulse Ox 90 L 01/08/17 18:43 Weight: 74.389 kg - Exam General: Alert, Moderate Distress HEENT: Conjunctiva Clear, EACs Clear, Hearing Intact, Pupils Equal, Pupils Reactive, Other (Has BIPAP on). No: Mucosa Moist & Joes, Posterior Pharynx Clear Neck: Supple, Trachea Midline, Full Range of Motion Lungs: Decreased Breath Sounds, Crackles, Rhonchi, Wheezing Cardiovascular: Regular Rhythm, Tachycardia GI/Abdominal Exam: Normal Bowel Sounds, Soft, Non-Tender, No Organomegaly, No Distention, No Abnormal Bruit, No Mass (Female) Exam: Deferred Rectal (Female) Exam: Deferred Back Exam: Normal Inspection, Decreased Range of Motion Extremities: Normal Inspection, Normal Range of Motion, Non-Tender, No Pedal Edema, Normal Capillary Refill Peripheral Pulses: 2+: Dorsalis Pedis (L), Dorsalis Pedis (R) Skin: Warm, Dry, Intact Neuro Extensive - Mental Status: Alert, Normal Mood/Affect Neuro Extensive - Motor, Sensory, Reflexes: CN II-XII Intact (limited but grossly intact), Normal Gait Psychiatric: Alert, Normal Affect, Normal Mood - Patient Data Result Diagrams: 01/09/17 05:08 01/09/17 05:08 *Q Meaningful Use (ADM) - VTE *Q VTE Criteria *Q: - Stroke *Q Stroke Criteria *Q: - AMI *Q AMI Criteria *Q: Problem List Initiated/Reviewed/Updated: Yes Orders Last 24hrs: Active Orders 24 hr Category Date Time Status BIPAP Adult [RT BiPAP/CPAP] [RC] ASDIRECTED Care 01/08/17 18:59 Active RT Aerosol Therapy [RC] ASDIRECTED Care 01/08/17 18:17 Active RT Aerosol Therapy [RC] ASDIRECTED Care 01/08/17 18:31 Active RT Aerosol Therapy [RC] ASDIRECTED Care 01/08/17 18:32 Active [facility] [place] VIRUS PANEL IGG,IGM [REF] Stat Lab 01/08/17 19:13 Ordered Magnesium Sulfate/Water [Magnesium Sulfate 2 GM in Med 01/08/17 19:11 Active Water 50 ML] 2 gm Premix Bag 1 bag IV ONETIME Medication Orders Magnesium Sulfate 2 gm/ Premix 50 mls @ 25 mls/hr IV ONETIME ONE Stop: 01/08/17 21:10 Last Admin: 01/08/17 19:19 Dose: 25 mls/hr Sodium Chloride (Saline Flush) 10 ml FLUSH ASDIRECTED PRN PRN Reason: Keep Vein Open Last Admin: 01/08/17 17:47 Dose: 10 ml Assessment/Plan Comment:: Assessment/Plan: Acute: Sepsis With Profound Hypotension - Likely 2/2 Right Lower Lobe PNA - Cannot r/o Early Developing Septic Shock - Associated Respiratory Failure, Leukocytosis, Tachycardia, Lactic Acidosis , Hypotension (99/59 on admission)Transaminitis, Thrombocytopenia and Acute Renal Failure - No hx/o HF or Cardiomyopathy - Aggressively hydrating - Cortisol Level then Solucortef 100 mg IV Q6 - IV ATB: Levaquin, Meropenem and Vancomyin all for pharmacy to renally dose - Requested Central Line Placement in ED - Monitor Urine Output Right Lower Lobe PNA - CXR shows visible right sided lower lobe infiltrate - IV ATB, Bronchodilators, IV Steroids, RT Care - Serial CXR Acute Respiratory Failure - O2 Sat at 85% with 15 NRM - Received Multiple breathing treatment in ED w/o any success - On BIPAP with setting of 10/5 with FiO2 of 60% - No ABG taken before BIPAP was put on - ABG x1 now - Consider intubation if respiratory status does not improve Acute Renal Failure - BUN 25.7 and Cr 2.1 - Baseline GFR > 60; she is at 24 - Likely 2/2 Severe Volume Depletion - Risk factors: She is on Meloxicam and Metformin - Aggressive IV Hydration - Avoid Nephrotoxic agents - Pharmacy to adjust all medications - Monitor Urine Output Leukocytosis - WBC 19.11 and CRP 19.6 - Likely from Sepsis and PNA - No UA done - Treat underlying cause - Monitor Elevated D-Dimer - D-Dimer 1.34 - Likely from PNA - CTA is CI due to acute renal failure - No Anti-coags due to Low platelet level of 46 Thrombocytopenia - Platelet of 46 - No ecchymosis or bruising noted - She is on ASA; will hold it - Monitor level Lactic Acidosis - 2/2 Sepsis - LA 4.4; will repeat LA - So far she has gotten 2.5 L of IV fluids - Currently infusing 3rd LR - 1L NS at 250 cc/hr for maintenance fluid Transaminitis - AST 193 and ALT 230 - She drinks mixed ETOH every night - Avoid Acetaminophen if all possible - Monitor Elevated Hgb Level at 18.8 - Likely 2/2 Severe Dehydration - cannot r/o Polycythemia Vera - She may chronic lung disease +/- renal insufficiency - Will monitor Chronic: AR Impaired Vision HLD Asthma Dysphagia OA Chronic Hip Pain Scoliosis Hypothyroidism Plan: Admit to ICU Sepsis Protocol UA Follow up LA and CMP Resume Some Home Meds Start Levophed drip if no response to aggressive hydration No NSAIDS and Avoid Tylenol PT/OT consult SW/CM for d/c planning GI PPx: PPIs DVT PPx: SCDS Additional orders as above Code status: 1 Prognosis Serious-Critical
[2017-01-08] MEDS ORDERED: Ondansetron 4 MG/2 ML SDV IV PRN (20:15)
[2017-01-08] MEDS ORDERED: Magnesium Hydroxide 400 MG/5 ML Susp 30 ML Cup PO PRN (20:15)
[2017-01-08] MEDS ORDERED: Docusate Sodium 100 MG Cap PO PRN (20:15)
[2017-01-08] MEDS ORDERED: HYDROmorphone 1 MG/ML Syringe IVPUSH PRN (20:15)
[2017-01-08] MEDS ORDERED: LORazepam 2 MG/ML MDV IV PRN (20:15)
[2017-01-08] MEDS ORDERED: Bisacodyl 5 MG Tab PO PRN (20:15)
[2017-01-08] MEDS ORDERED: Temazepam 15 MG Cap PO PRN (20:15)
[2017-01-08] MEDS ORDERED: Promethazine 12.5 MG in Sodium Chloride 0.9% 50 ML IV PRN (20:15)
[2017-01-08] MEDS ORDERED: Polyethylene Glycol 3350 Powder 17 GM Packet PO PRN (20:15)
[2017-01-08] MEDS ORDERED: Metoprolol Tartrate 5 MG/5 ML SDV IVPUSH PRN (20:25)
[2017-01-08] MEDS ORDERED: LORazepam 2 MG/ML MDV IVPUSH PRN (20:25)
[2017-01-08] MEDS ORDERED: hydrALAZINE 20 MG/ML SDV IVPUSH PRN (20:25)
[2017-01-08] MEDS ORDERED: Levofloxacin/Dextrose 5%-Water 750 MG in Premix Bag 1 BAG IV ONE (20:26)
[2017-01-08] MEDS ORDERED: Vancomycin 500 MG SDV IV SCH (20:30)
[2017-01-08] MEDS: Pantoprazole 40 MG Vial IV SCH (22:16)
[2017-01-08] MEDS: Meropenem 1 GM in Sodium Chloride 0.9% 100 ML IV SCH (22:16)
[2017-01-08] MEDS: Loratadine 10 MG Tab PO SCH (22:17)
[2017-01-08] MEDS: Vitamin B6-pyridOXINE 50 MG Tab PO SCH (22:17)
[2017-01-08] MEDS: Lactated Ringers 1,000 ML IV SCH ×2 (22:18→23:36)
[2017-01-08] MEDS: Hydrocortisone Sodium Succinate 100 MG/2 ML SDV IVPUSH SCH (22:40)
[2017-01-09] MEDS: Sodium Chloride 0.9% 1,000 ML IV SCH ×6 (00:37→19:52)
[2017-01-09] MEDS: Hydrocortisone Sodium Succinate 100 MG/2 ML SDV IVPUSH SCH ×4 (02:19→20:28)
[2017-01-09] MEDS: LORazepam 2 MG/ML MDV IVPUSH PRN (02:19)
[2017-01-09] MEDS: Morphine 2 MG/ML Syringe IVPUSH PRN ×2 (02:19→20:29)
[2017-01-09] MEDS: Meropenem 1 GM in Sodium Chloride 0.9% 100 ML IV SCH (04:03)
--- NOTE | 2017-01-09 07:03 | CR ---
Chest: Portable view of the chest was obtained. Comparison: Prior chest x-ray is not available. Heart size is within normal limits. Diffuse increased lung markings are seen with early Doretha B lines. Incidental azygos lobe is seen. Scoliosis is noted within the spine. Impression: 1. Diffuse increased lung markings with early Doretha B lines. Pulmonary vascular congestion and early pulmonary edema is a possibility although heart is not enlarged. Please correlate if patient has had an acute cardiac event. Findings less likely are infectious. 2. Other incidental findings. Diagnostic code #3
[2017-01-09] MEDS ORDERED: Benzocaine/Cetylpyridinium/Menthol Lozenge MUCMEM PRN (08:03)
[2017-01-09] MEDS: Albuterol/Ipratropium 3.0-0.5 MG/3 ML Neb Soln NEB PRN ×4 (08:39→20:47)
[2017-01-09] MEDS: Acetaminophen 325 MG Tab PO PRN (08:48)
[2017-01-09] MEDS: Pantoprazole 40 MG Vial IV SCH ×2 (08:52→20:27)
[2017-01-09] MEDS: Vitamin B6-pyridOXINE 50 MG Tab PO SCH ×2 (08:55→20:28)
[2017-01-09] MEDS: Aspirin 81 MG Tab.EC PO SCH ×2 (08:55→09:02)
[2017-01-09] MEDS: Multivitamins,Therapeutic Tab PO SCH (08:55)
[2017-01-09] MEDS: Levothyroxine 100 MCG Tab PO SCH (08:55)
[2017-01-09] MEDS: Non-Formulary Medication 1 Each (Ubidecarenone 100 MG) PO SCH (08:57)
--- NOTE | 2017-01-09 09:55 | CR ---
Chest: Portable view of the chest was obtained. Comparison: Previous chest x-ray of 01/09/17. Heart size and mediastinum are within normal limits. Small azygos lobe is seen. Increased lung markings are seen which show improvement from prior exam. Previously noted Doretha B lines have resolved. Scoliosis is noted within the spine. Impression: 1. Increased central lung markings which have decreased in prominence from previous exam. Doretha B lines have also resolved in the interim from prior study. 2. Other stable findings as noted above. Diagnostic code #3
[2017-01-09] MEDS: guaiFENesin/Dextromethorphan 100-10 MG/5 ML Soln 5 ML Cup PO PRN ×2 (10:39→15:50)
[2017-01-09] MEDS: Meropenem 500 MG in Sodium Chloride 0.9% 100 ML IV SCH ×2 (11:34→19:53)
[2017-01-09] MEDS: oxyCODONE 5 MG Tab PO PRN (13:26)
--- NOTE | 2017-01-09 14:45 | PCM.PN ---
- General Info Date of Service: 01/09/17 Admission Dx/Problem (Free Text): Sepsis Subjective Update: Follow Up Functional Status: Reports: Ambulating. Denies: Pain Controlled, Urinating, New Symptoms - Review of Systems General: Reports: Weakness. Denies: Fever, Fatigue, Malaise, Chills HEENT: Denies: No Symptoms Pulmonary: Reports: Cough. Denies: Shortness of Breath Cardiovascular: Denies: Chest Pain, Palpitations, Dyspnea on Exertion, Lightheadedness Gastrointestinal: Denies: Abdominal Pain, Nausea, Vomiting Genitourinary: Denies: No Symptoms Musculoskeletal: Reports: Joint Pain, Other (muscle aches) Skin: Denies: Cyanosis, Jaundice, Mottled, Pallor, Diaphoresis, Bruising, Pruritis, Rash Neurological: Reports: Headache. Denies: Confusion, Dizziness, Pre-Existing Deficit, Seizure, Syncope, Trouble Speaking, Difficulty Walking, Weakness, Gait Disturbance Psychiatric: Denies: Confusion, Depression, Mood Lability, Anxiety, Agitation, Cravings, Hallucinations, Suicidal Ideation, Homicidal Ideation Systems Review Comment:: No significant overnight or acute issues. She feels much. She complaints of frontal JORDAN. Her WBC is down from 19.11 to 12.69 and CRP is down for 19.6 to 13.1. She is now off BIPAP and sating well at 93-94% on 4L NC. - Patient Data Vitals - Most Recent: Last Vital Signs Temp 36.8 C 01/09/17 12:00 Pulse 102 H 01/09/17 02:00 Resp 28 H 01/09/17 12:00 BP 119/75 01/09/17 12:00 Pulse Ox 93 L 01/09/17 12:31 Weight - Most Recent: 81.238 kg I&O - Last 24 Hours: Intake & Output 01/08/17 01/09/17 01/09/17 22:59 06:59 14:59 Intake Total 5542 1792 Output Total 1150 1050 Balance 4392 742 Lab Results Last 24 Hours: Laboratory Results - last 24 hr 01/08/17 01/08/17 01/09/17 Range/Units 22:27 23:09 05:08 WBC (3.98-10.04) K/mm3 RBC (3.98-5.22) M/mm3 Hgb (11.2-15.7) gm/L Hct (34.1-44.9) % MCV (79.4-94.8) fl MCH (25.6-32.2) pg MCHC (32.2-35.5) g/dl RDW Std Deviation (36.4-46.3) fL Plt Count (182-369) K/mm3 MPV (9.4-12.3) fl Neut % (Auto) Lymph % (Auto) Ford % (Auto) Eos % (Auto) Baso % (Auto) Neut # (Auto) Lymph # (Auto) Ford # (Auto) Eos # (Auto) Baso # (Auto) Neutrophils % (Manual) (40-60) % Band Neutrophils % (0-10) % Lymphocytes % (Manual) (20-40) % Atypical Lymphs % % Monocytes % (Manual) (2-10) % Eosinophils % (Manual) (0.7-5.8) % Basophils % (Manual) (0.1-1.2) Metamyelocytes % Differential Comment Manual Slide Review Platelet Estimate RBC Morph Comment Sodium (136-145) mEq/L Potassium (3.5-5.1) mEq/L Chloride (98-107) mEq/L Carbon Dioxide (21-32) mEq/L Anion Gap (5-15) BUN (7-18) mg/dL Creatinine (0.55-1.02) mg/dL Est Cr Clr Drug Dosing mL/min Estimated GFR (MDRD) (>60) mL/min BUN/Creatinine Ratio (14-18) Glucose (74-106) mg/dL Lactic Acid 4.1 H (0.4-2.0) mmol/L Calcium (8.5-10.1) mg/dL Magnesium (1.8-2.4) mg/dl Total Bilirubin (0.2-1.0) mg/dL AST (15-37) U/L ALT (14-59) U/L Alkaline Phosphatase (46-116) U/L C-Reactive Protein (<1.0) mg/dL Total Protein (6.4-8.2) g/dl Albumin (3.4-5.0) g/dl Globulin gm/dL Albumin/Globulin Ratio (1-2) Urine Color Yellow (Yellow) Urine Appearance Clear (Clear) Urine pH 6.0 (5.0-8.0) Ur Specific Lithia > or = 1.030 (1.005-1.030) Urine Protein 2+ H (Negative) Urine Glucose (UA) Negative (Negative) Urine Ketones Negative (Negative) Urine Occult Blood Negative (Negative) Urine Nitrite Negative (Negative) Urine Bilirubin Negative (Negative) Urine Urobilinogen 0.2 (0.2-1.0) Ur Leukocyte Esterase Negative (Negative) Urine RBC Not seen (0-5) /hpf Urine WBC 5-10 H (0-5) /hpf Ur Epithelial Cells 0-5 (0-5) /hpf Ur Squamous Epith Cells 0-5 (0-5) /hpf Urine Bacteria Not seen (FEW) /hpf WBC Casts 5-10 H (0-5) /lpf Urine Mucus Few (FEW) /hpf Mycoplasma pneumon IgM Negative (NEGATIVE) 01/09/17 01/09/17 01/09/17 Range/Units 05:08 05:08 06:25 WBC 12.69 H (3.98-10.04) K/mm3 RBC 5.01 (3.98-5.22) M/mm3 Hgb 15.6 (11.2-15.7) gm/L Hct 44.6 (34.1-44.9) % MCV 89.0 (79.4-94.8) fl MCH 31.1 (25.6-32.2) pg MCHC 35.0 (32.2-35.5) g/dl RDW Std Deviation 42.9 (36.4-46.3) fL Plt Count 38 L (182-369) K/mm3 MPV 12.2 (9.4-12.3) fl Neut % (Auto) Cancelled Lymph % (Auto) Cancelled Ford % (Auto) Cancelled Eos % (Auto) Cancelled Baso % (Auto) Cancelled Neut # (Auto) Cancelled Lymph # (Auto) Cancelled Ford # (Auto) Cancelled Eos # (Auto) Cancelled Baso # (Auto) Cancelled Neutrophils % (Manual) 28 L (40-60) % Band Neutrophils % 38 H (0-10) % Lymphocytes % (Manual) 26 (20-40) % Atypical Lymphs % 0 % Monocytes % (Manual) 6 (2-10) % Eosinophils % (Manual) 0 L (0.7-5.8) % Basophils % (Manual) 0 L (0.1-1.2) Metamyelocytes % 2 Differential Comment See note Manual Slide Review Cancelled Platelet Estimate See note RBC Morph Comment Normal Sodium 135 L (136-145) mEq/L Potassium 3.8 (3.5-5.1) mEq/L Chloride 107 (98-107) mEq/L Carbon Dioxide 15 L (21-32) mEq/L Anion Gap 16.8 H (5-15) BUN 25 H (7-18) mg/dL Creatinine 1.2 H (0.55-1.02) mg/dL Est Cr Clr Drug Dosing 41.24 mL/min Estimated GFR (MDRD) 46 (>60) mL/min BUN/Creatinine Ratio 20.8 H (14-18) Glucose 175 H (74-106) mg/dL Lactic Acid 2.6 H (0.4-2.0) mmol/L Calcium 7.4 L (8.5-10.1) mg/dL Magnesium 2.2 (1.8-2.4) mg/dl Total Bilirubin 0.5 (0.2-1.0) mg/dL AST 162 H (15-37) U/L ALT 177 H (14-59) U/L Alkaline Phosphatase 258 H (46-116) U/L C-Reactive Protein 13.1 H* (<1.0) mg/dL Total Protein 5.3 L (6.4-8.2) g/dl Albumin 2.1 L (3.4-5.0) g/dl Globulin 3.2 gm/dL Albumin/Globulin Ratio 0.7 L (1-2) Urine Color (Yellow) Urine Appearance (Clear) Urine pH (5.0-8.0) Ur Specific Lithia (1.005-1.030) Urine Protein (Negative) Urine Glucose (UA) (Negative) Urine Ketones (Negative) Urine Occult Blood (Negative) Urine Nitrite (Negative) Urine Bilirubin (Negative) Urine Urobilinogen (0.2-1.0) Ur Leukocyte Esterase (Negative) Urine RBC (0-5) /hpf Urine WBC (0-5) /hpf Ur Epithelial Cells (0-5) /hpf Ur Squamous Epith Cells (0-5) /hpf Urine Bacteria (FEW) /hpf WBC Casts (0-5) /lpf Urine Mucus (FEW) /hpf Mycoplasma pneumon IgM (NEGATIVE) Lito Results Last 24 Hours: Microbiology 01/09/17 10:55 Gram Stain - Final Sputum - Expectorated 01/08/17 23:09 Influenza Type A Antigen Screen - Final Nasal, Unspecified NEGATIVE INFLUENZA A VIRUS AG Influenza Type B Antigen Screen - Final NEGATIVE INFLUENZA B VIRUS AG Med Orders - Current: Current Medications Acetaminophen (Tylenol) 650 mg PO Q4H PRN PRN Reason: Pain (Mild 1-3)/fever Last Admin: 01/09/17 08:48 Dose: 650 mg Albuterol/Ipratropium (Duoneb 3.0-0.5 Mg/3 Ml) 3 ml NEB Q4H PRN PRN Reason: Shortness Of Breath/wheezing Last Admin: 01/09/17 12:30 Dose: 3 ml Benzocaine/Menthol (Cepacol Sore Throat) 1 lozenge MUCMEM Q4H PRN PRN Reason: Sore Throat Last Admin: 01/09/17 08:48 Dose: 1 lozenge Bisacodyl (Dulcolax) 5 mg PO DAILY PRN PRN Reason: Constipation Docusate Sodium (Colace) 100 mg PO BID PRN PRN Reason: Constipation Guaifenesin/Phenylephrine HCl (Robitussin Dm) 10 ml PO Q4H PRN PRN Reason: Cough Last Admin: 01/09/17 10:39 Dose: 10 ml Hydralazine HCl (Apresoline) 20 mg IVPUSH Q4H PRN PRN Reason: Hypertension Hydrocortisone Sodium Succinate (Solu-Cortef) 100 mg IVPUSH Q6H [facility] Last Admin: 01/09/17 14:43 Dose: 100 mg Hydromorphone HCl (Dilaudid) 1 mg IVPUSH Q3H PRN PRN Reason: Pain (severe 7-10) Promethazine HCl 12.5 mg/ (Sodium Chloride) 50.5 mls @ 100 mls/hr IV Q6H PRN PRN Reason: Nausea/Vomiting Levofloxacin/Dextrose 750 mg/ (Premix) 150 mls @ 100 mls/hr IV Q48H [facility] Sodium Chloride (Normal Saline) 1,000 mls @ 250 mls/hr IV ASDIRECTED [facility] Last Admin: 01/09/17 11:35 Dose: 350 mls/hr Meropenem 500 mg/ Sodium (Chloride) 100 mls @ 200 mls/hr IV Q8H [facility] Last Admin: 01/09/17 11:34 Dose: 200 mls/hr Vancomycin HCl 1.25 gm/ Sodium (Chloride) 250 mls @ 250 mls/hr IV Q24H [facility] Levothyroxine Sodium (Synthroid) 100 mcg PO DAILY [facility] Last Admin: 01/09/17 08:55 Dose: 100 mcg Loratadine (Claritin) 10 mg PO BEDTIME [facility] Last Admin: 01/08/17 22:17 Dose: 10 mg Lorazepam (Ativan) 2 mg IVPUSH Q4H PRN PRN Reason: Seizures Lorazepam (Ativan) 1 mg IVPUSH Q3H PRN PRN Reason: dyspnea, anxiety Last Admin: 01/09/17 02:19 Dose: 1 mg Magnesium Hydroxide (Milk Of Magnesia) 30 ml PO Q12H PRN PRN Reason: Constipation Metoprolol Tartrate (Lopressor) 5 mg IVPUSH Q4H PRN PRN Reason: Tachycardia Morphine Sulfate (Morphine) 1 mg IVPUSH Q4H PRN PRN Reason: Dyspnea Last Admin: 01/09/17 02:19 Dose: 1 mg Multivitamins (Thera) 1 each PO DAILY [facility] Last Admin: 01/09/17 08:55 Dose: 1 each Non-Formulary Medication (Ubidecarenone) 100 mg PO DAILY [facility] Last Admin: 01/09/17 08:57 Dose: Not Given Ondansetron HCl (Zofran) 4 mg IV Q6H PRN PRN Reason: Nausea/Vomiting Oxycodone HCl (Oxycodone) 5 mg PO Q4H PRN PRN Reason: Pain (moderate 4-6) Last Admin: 01/09/17 13:26 Dose: 5 mg Pantoprazole Sodium (Protonix Iv) 40 mg IV Q12HR [facility] Last Admin: 01/09/17 08:52 Dose: 40 mg Polyethylene Glycol (Miralax) 17 gm PO DAILY PRN PRN Reason: Constipation Pyridoxine HCl (Vitamin B6-Pyridoxine) 100 mg PO BID [facility] Last Admin: 01/09/17 08:55 Dose: 100 mg Senna/Docusate Sodium (Senna Plus) 1 tab PO BID PRN PRN Reason: Constipation Sodium Chloride (Saline Flush) 10 ml FLUSH ASDIRECTED PRN PRN Reason: Keep Vein Open Last Admin: 01/08/17 17:47 Dose: 10 ml Temazepam (Restoril) 15 mg PO BEDTIME PRN PRN Reason: Sleep Tramadol HCl (Ultram) 50 mg PO DAILY PRN PRN Reason: Pain Vancomycin HCl (Pharmacy To Dose - Vancomycin) 0 dose .XX ASDIRECTED PRN PRN Reason: RX TO DOSE IV VANCOMYCIN Discontinued Medications Albuterol (Proventil Neb Soln) 2.5 mg NEB ONETIME ONE Stop: 01/08/17 17:02 Last Admin: 01/08/17 17:09 Dose: 2.5 mg Albuterol (Proventil Neb Soln) 2.5 mg NEB ONETIME ONE Stop: 01/08/17 18:32 Last Admin: 01/08/17 18:36 Dose: 2.5 mg Albuterol (Proventil Neb Soln) 2.5 mg NEB ONETIME ONE Stop: 01/08/17 18:33 Last Admin: 01/08/17 18:36 Dose: 2.5 mg Albuterol/Ipratropium (Duoneb 3.0-0.5 Mg/3 Ml) 3 ml NEB ONETIME ONE Stop: 01/08/17 18:18 Last Admin: 01/08/17 18:28 Dose: 3 ml Aspirin (Halfprin) 81 mg PO DAILY [facility] Last Admin: 01/09/17 09:02 Dose: Not Given Sodium Chloride (Normal Saline) 500 mls @ 999 mls/hr IV ONETIME ONE Stop: 01/08/17 17:31 Last Admin: 01/08/17 17:08 Dose: 999 mls/hr Levofloxacin/Dextrose 500 mg/ (Premix) 100 mls @ 100 mls/hr IV ONETIME ONE Stop: 01/08/17 18:21 Last Admin: 01/08/17 18:25 Dose: 100 mls/hr Sodium Chloride (Normal Saline) Confirm Administered Dose 1,000 mls @ as directed .ROUTE .STK-MED ONE Stop: 01/08/17 18:24 Last Admin: 01/08/17 18:44 Dose: Not Given Sodium Chloride (Normal Saline) 1,000 mls @ 999 mls/hr IV ONETIME ONE Stop: 01/08/17 19:43 Last Admin: 01/08/17 18:20 Dose: 999 mls/hr Magnesium Sulfate 2 gm/ Premix 50 mls @ 25 mls/hr IV ONETIME ONE Stop: 01/08/17 21:10 Last Admin: 01/08/17 19:19 Dose: 25 mls/hr Lactated Ringer's (Ringers, Lactated) 1,000 mls @ 999 mls/hr IV ASDIRECTED [facility] Last Admin: 01/08/17 23:36 Dose: 999 mls/hr Levofloxacin/Dextrose 750 mg/ (Premix) 150 mls @ 100 mls/hr IV ONETIME ONE Stop: 01/08/17 21:55 Last Admin: 01/08/17 23:40 Dose: Not Given Meropenem 1 gm/ Sodium (Chloride) 100 mls @ 200 mls/hr IV Q8H [facility] Last Admin: 01/09/17 04:03 Dose: 200 mls/hr Vancomycin HCl 1 gm/ Sodium (Chloride) 250 mls @ 250 mls/hr IV Q24H [facility] Last Admin: 01/08/17 22:17 Dose: 250 mls/hr Lorazepam (Ativan) 0.5 mg IVPUSH ONETIME ONE Stop: 01/08/17 17:11 Last Admin: 01/08/17 17:15 Dose: 0.5 mg Lorazepam (Ativan) 1 mg IV Q6H PRN PRN Reason: Anxiety Last Admin: 01/08/17 22:21 Dose: 1 mg Magnesium Sulfate (Magnesium Sulfate 50%) 2 gm IV ONETIME ONE Stop: 01/08/17 19:01 Methylprednisolone Sodium Succinate (Solu-Medrol) 125 mg IVPUSH ONETIME ONE Stop: 01/08/17 18:32 Last Admin: 01/08/17 18:35 Dose: 125 mg Vancomycin HCl (Vancomycin) 1 mg IV Q12H [facility] - Exam Quality Assessment: Supplemental Oxygen General: Alert, Oriented, Cooperative, No Acute Distress HEENT: Pupils Equal, Pupils Reactive, EOMI, Mucous Membr. Moist/[place] Neck: Supple, Trachea Midline, No JVD, No Thyromegaly Lungs: Normal Respiratory Effort, Decreased Breath Sounds Cardiovascular: Regular Rate, Regular Rhythm GI/Abdominal Exam: Normal Bowel Sounds, Soft, Non-Tender, No Organomegaly, No Distention, No Abnormal Bruit, No Mass, Pelvis Stable (Female) Exam: Deferred Back Exam: Normal Inspection, Decreased Range of Motion Extremities: Normal Inspection, Normal Range of Motion, Non-Tender, No Pedal Edema, Normal Capillary Refill Skin: Warm, Dry, Intact Neurological: No New Focal Deficit Psy/Mental Status: Alert, Normal Affect, Normal Mood - Problem List Review Problem List Initiated/Reviewed/Updated: Yes - My Orders Last 24 Hours: My Active Orders 01/08/17 20:14 traMADol [Ultram] 50 mg PO DAILY PRN 01/08/17 20:15 Cardiac Monitoring [RC] CONTINUOUS Height and Weight [RC] 04 Intake and Output [RC] Q2HR Oxygen Therapy [RC] CONTINUOUS Vital Signs [RC] Q4HR Acetaminophen [Tylenol] 650 mg PO Q4H PRN Albuterol/Ipratropium [DuoNeb 3.0-0.5 MG/3 ML] 3 ml NEB Q4H PRN Bisacodyl [Dulcolax] 5 mg PO DAILY PRN Docusate Sodium [Colace] 100 mg PO BID PRN Docusate Sodium/Sennosides [Senna Plus] 1 tab PO BID PRN HYDROmorphone [Dilaudid] 1 mg IVPUSH Q3H PRN Magnesium Hydroxide [Milk of Magnesia] 30 ml PO Q12H PRN Ondansetron [Zofran] 4 mg IV Q6H PRN Polyethylene Glycol 3350 [MiraLAX] 17 gm PO DAILY PRN Promethazine [Phenergan] 12.5 mg Sodium Chloride 0.9% [Normal Saline] 50 ml IV Q6H Temazepam [Restoril] 15 mg PO BEDTIME PRN Resuscitation Status Routine 01/08/17 20:20 RT Aerosol Therapy [RC] .PRN 01/08/17 20:22 Consult to Case Management [CONS] Routine Consult to Academic Guidance Specialist [CONS] Routine Consult to Spiritual Care [CONS] Routine OT Evaluation and Treatment [CONS] Routine PT Evaluation and Treatment [CONS] Routine Respiratory Care Assess and Treatment [CONS] Routine oxyCODONE 5 mg PO Q4H PRN 01/08/17 20:25 LORazepam [Ativan] 2 mg IVPUSH Q4H PRN Metoprolol Tartrate [Lopressor] 5 mg IVPUSH Q4H PRN hydrALAZINE [Apresoline] 20 mg IVPUSH Q4H PRN 09/21/17 20:30 Vancomycin Pharmacy to Dose [Pharmacy to Dose - Vancomycin] 0 dose .XX ASDIRECTED PRN 01/08/17 20:37 BIPAP Adult [RT BiPAP/CPAP] [RC] ASDIRECTED 01/08/17 20:45 Hydrocortisone Sod Succinate [Solu-CORTEF] 100 mg IVPUSH Q6H 01/08/17 21:00 Loratadine [Claritin] 10 mg PO BEDTIME Pantoprazole [ProTONIX IV] 40 mg IV Q12HR Vitamin B6-pyridOXINE 100 mg PO BID 01/08/17 22:05 Urinary Catheter Assessment [RC] Q4HR 01/08/17 22:15 Insert Velasquez Catheter [Insert Urinary Catheter] [OM.PC] Q24H 01/08/17 22:27 CORTISOL [REF] Stat PROCALCITONIN [REF] Stat 01/08/17 22:52 Antiembolic Devices [RC] QSHIFT SCD [Sequential Compression Device] [OM.PC] Routine 01/08/17 23:09 CULTURE URINE [RM] Stat STREP PNEUMONIAE ANTIGEN [MREF] Stat 01/08/17 Dinner Consistent Carbohydrate Diet [DIET] 01/09/17 01:00 Sodium Chloride 0.9% [Normal Saline] 1,000 ml IV ASDIRECTED 01/09/17 02:06 Morphine 1 mg IVPUSH Q4H PRN 01/09/17 02:07 LORazepam [Ativan] 1 mg IVPUSH Q3H PRN 01/09/17 08:03 Benzocaine/Cetylpyrd/Menthol [Cepacol Sore Throat] 1 lozenge MUCMEM Q4H PRN 01/09/17 08:28 RESPIRATORY PANEL BY PCR [MREF] Stat 01/09/17 09:00 Levothyroxine [Synthroid] 100 mcg PO DAILY Multivitamins,Therapeutic [Thera] 1 each PO DAILY Ubidecarenone 100 mg PO DAILY 01/09/17 09:04 Dextromethorphan/guaiFENesin [Robitussin DM] 10 ml PO Q4H PRN 01/09/17 10:55 CULTURE SPUTUM + SMEAR [RM] Stat 01/09/17 12:00 Meropenem [Merrem] 500 mg Sodium Chloride 0.9% [Normal Saline] 100 ml IV Q8H 01/09/17 22:00 Vancomycin 1.25 gm Sodium Chloride 0.9% [Normal Saline] 250 ml IV Q24H 01/10/17 05:11 C-REACTIVE PROTEIN [CHEM] AM CBC WITH AUTO DIFF [HEME] AM COMPREHENSIVE METABOLIC PN,CMP [CHEM] AM LACTIC ACID [CHEM] AM MAGNESIUM [CHEM] AM 01/10/17 09:00 Levofloxacin/Dextrose 5%-Water [Levaquin in D5W 750 MG/150 ML] 750 mg Premix Bag 1 bag IV Q48H 01/11/17 05:11 C-REACTIVE PROTEIN [CHEM] AM CBC WITH AUTO DIFF [HEME] AM COMPREHENSIVE METABOLIC PN,CMP [CHEM] AM MAGNESIUM [CHEM] AM 01/12/17 05:11 C-REACTIVE PROTEIN [CHEM] AM CBC WITH AUTO DIFF [HEME] AM COMPREHENSIVE METABOLIC PN,CMP [CHEM] AM MAGNESIUM [CHEM] AM - Plan Plan:: Assessment/Plan: Acute: Acute Bronchitis/Acute Bronchospasm - Risk Factors: Dysphagia and Hiatal Hernia - IV ATB, Bronchodilators, IV Steroids, RT Care - Follow-up CXR: does not support diagnosis of pneumonia - Decongestant/Suppressant/Expectorant - IS/FV as directed Sepsis With Profound Hypotension, Improved - W/o clear etiology - High suspicious of Acute Viral Illness - Associated Respiratory Failure, Leukocytosis, Tachycardia, Lactic Acidosis , Hypotension (99/59 on admission)Transaminitis, Thrombocytopenia and Acute Renal Failure - No hx/o HF or Cardiomyopathy - Continue aggressively hydration and Solucortef 100 mg IV Q6 - Continue IV ATB: Levaquin, Meropenem and Vancomyin all for pharmacy to renally dose - Requested Central Line Placement in ED, was not done - Continue Monitor Urine Output Acute Renal Failure, Significantly Improved - BUN 25.7--> 16 and Cr 2.1--> 1.2 - Baseline GFR > 60; she is at 24 - Likely 2/2 Severe Volume Depletion - Risk factors: She is on Meloxicam and Metformin - Continue IV Hydration - Avoid Nephrotoxic agents - Pharmacy to adjust all medications Leukocytosis, Improved - WBC 19.11 --> 12.69 and CRP 19.6 --> 13.1 - Likely from Sepsis and PNA - UA is negative; Ford-screen negative; Influenza A/B screening negative; Blood Culture x 2 negative, Sputum Cx -pending - Treat underlying cause - Continue Monitor Elevated D-Dimer, Unchanged - D-Dimer 1.34 - Likely from PNA - CTA is CI due to acute renal failure - No Anti-coags due to Low platelet level of 46 - May consider CTA in AM Thrombocytopenia, Slightly Worse - Platelet of 46 --> 38 - No ecchymosis or bruising noted - She is on ASA; will hold it - Monitor level Lactic Acidosis, Improved - 2/2 Sepsis - LA 4.4---> 2.6 - So far she has gotten 5 total L of fluids - Continue current IVF for maintenance fluid Transaminitis, Improved - AST 193 --> 162 and ALT 230 --> 177 - She drinks mixed ETOH every night - Avoid Acetaminophen if all possible - Continue to Monitor Resolved: Right Lower Lobe PNA - CXR shows possible right sided lower lobe infiltrate - IV ATB, Bronchodilators, IV Steroids, RT Care - Follow-up CXR: does not support diagnosis of pneumonia - She has bronchitis instead Elevated Hgb Level at 18.8 --> 15.01 - Likely 2/2 Severe Dehydration - cannot r/o Polycythemia Vera - She may chronic lung disease +/- renal insufficiency - Will monitor Acute Respiratory Failure - O2 Sat at 85% with 15 NRM - Received Multiple breathing treatment in ED w/o any success - On BIPAP with setting of 10/5 with FiO2 of 60% - No ABG taken before BIPAP was put on - Consider intubation if respiratory status does not improve - She is now off BIPAP Chronic: AR Impaired Vision HLD Asthma Dysphagia OA Chronic Hip Pain Scoliosis Hypothyroidism Plan: She is clinically much better Start po diet Offered Marinol but patient refused Continue Sepsis Protocol Continue PT/OT SW/CM for d/c planning GI PPx: PPIs DVT PPx: SCDS Additional orders as above Code status: 1 Prognosis Guarded-Serious Updated and daughter about patient's clinical progress at bedside separately
[2017-01-09] MEDS: Benzonatate 100 MG Cap PO PRN (18:12)
[2017-01-09] MEDS ORDERED: Thiamine 100 MG in Sodium Chloride 0.9% 100 ML IV ONE (19:33)
[2017-01-09] MEDS: Loratadine 10 MG Tab PO SCH (20:28)
[2017-01-09] MEDS ORDERED: Multivitamin/Iron/Folic Acid Tab PO SCH (21:00)
[2017-01-09] MEDS ORDERED: Acetaminophen/Butalbital/Caffeine 325-50-40 MG Tab PO PRN (22:10)
[2017-01-10] MEDS: Sodium Chloride 0.9% 1,000 ML IV SCH ×2 (00:01→04:04)
[2017-01-10] MEDS: Albuterol/Ipratropium 3.0-0.5 MG/3 ML Neb Soln NEB PRN ×5 (00:06→20:40)
[2017-01-10] MEDS: Meropenem 500 MG in Sodium Chloride 0.9% 100 ML IV SCH ×3 (03:27→20:13)
[2017-01-10] MEDS: Hydrocortisone Sodium Succinate 100 MG/2 ML SDV IVPUSH SCH ×3 (03:28→14:00)
[2017-01-10] MEDS: LORazepam 2 MG/ML MDV IVPUSH PRN ×2 (03:29→13:08)
--- NOTE | 2017-01-10 07:52 | PCM.PN ---
- General Info Date of Service: 01/10/17 Admission Dx/Problem (Free Text): Sepsis Subjective Update: Follow Up Functional Status: Reports: Pain Controlled, Tolerating Diet, Ambulating, Urinating. Denies: New Symptoms - Review of Systems General: Reports: Weakness. Denies: Fever, Fatigue, Malaise, Chills HEENT: Reports: No Symptoms Pulmonary: Reports: Cough. Denies: Shortness of Breath, Sputum, Wheezing Cardiovascular: Denies: Chest Pain, Palpitations, Lightheadedness Gastrointestinal: Reports: Decreased Appetite, Flatus. Denies: Abdominal Pain, Nausea, Vomiting Genitourinary: Reports: No Symptoms Musculoskeletal: Reports: No Symptoms Skin: Denies: Cyanosis, Jaundice, Mottled, Pallor, Diaphoresis, Rash Neurological: Reports: Weakness. Denies: Confusion, Pre-Existing Deficit, Seizure, Gait Disturbance Psychiatric: Denies: Confusion, Depression, Mood Lability, Anxiety, Agitation, Cravings, Hallucinations, Suicidal Ideation, Homicidal Ideation Systems Review Comment:: No significant overnight or acute issues. She is better but still weak. She still coughs but not producing anything out. Her labs overall continues to improve. - Patient Data Vitals - Most Recent: Last Vital Signs Temp 36.8 C 01/10/17 04:00 Pulse 102 H 01/09/17 02:00 Resp 21 H 01/10/17 04:00 BP 121/69 01/10/17 04:00 Pulse Ox 95 01/10/17 04:00 Weight - Most Recent: 85.275 kg I&O - Last 24 Hours: Intake & Output 01/09/17 01/10/17 01/10/17 22:59 06:59 14:59 Intake Total 2690 3915 Output Total 1000 975 Balance 1690 2940 Lab Results Last 24 Hours: Laboratory Results - last 24 hr 01/08/17 01/08/17 01/09/17 Range/Units 22:27 22:27 20:05 WBC (3.98-10.04) K/mm3 RBC (3.98-5.22) M/mm3 Hgb (11.2-15.7) gm/L Hct (34.1-44.9) % MCV (79.4-94.8) fl MCH (25.6-32.2) pg MCHC (32.2-35.5) g/dl RDW Std Deviation (36.4-46.3) fL Plt Count (182-369) K/mm3 MPV (9.4-12.3) fl Neut % (Auto) (34.0-71.1) % Lymph % (Auto) (19.3-51.7) % Hickman % (Auto) (4.7-12.5) % Eos % (Auto) (0.7-5.8) Baso % (Auto) (0.1-1.2) % Neut # (Auto) (1.56-6.13) K/mm3 Lymph # (Auto) (1.18-3.74) K/mm3 Hickman # (Auto) (0.24-0.36) K/mm3 Eos # (Auto) (0.04-0.36) K/mm3 Baso # (Auto) (0.01-0.08) K/mm3 Sodium 138 (136-145) mEq/L Potassium 3.1 L (3.5-5.1) mEq/L Chloride 108 H (98-107) mEq/L Carbon Dioxide 19 L (21-32) mEq/L Anion Gap 14.1 (5-15) BUN 16 (7-18) mg/dL Creatinine 0.9 (0.55-1.02) mg/dL Est Cr Clr Drug Dosing 54.99 mL/min Estimated GFR (MDRD) > 60 (>60) mL/min BUN/Creatinine Ratio 17.8 (14-18) Glucose 164 H (74-106) mg/dL Lactic Acid (0.4-2.0) mmol/L Calcium 7.6 L (8.5-10.1) mg/dL Total Bilirubin 0.4 (0.2-1.0) mg/dL AST 111 H (15-37) U/L ALT 138 H (14-59) U/L Alkaline Phosphatase 191 H (46-116) U/L Total Protein 5.0 L (6.4-8.2) g/dl Albumin 2.1 L (3.4-5.0) g/dl Globulin 2.9 gm/dL Albumin/Globulin Ratio 0.7 L (1-2) Procalcitonin 2.77 H (<0.10) ng/mL Cortisol 70.4 ug/dL 01/09/17 01/10/17 Range/Units 20:05 07:09 WBC 12.72 H (3.98-10.04) K/mm3 RBC 4.06 (3.98-5.22) M/mm3 Hgb 12.6 (11.2-15.7) gm/L Hct 36.5 (34.1-44.9) % MCV 89.9 (79.4-94.8) fl MCH 31.0 (25.6-32.2) pg MCHC 34.5 (32.2-35.5) g/dl RDW Std Deviation 43.2 (36.4-46.3) fL Plt Count 31 L (182-369) K/mm3 MPV 9.8 (9.4-12.3) fl Neut % (Auto) 48.6 (34.0-71.1) % Lymph % (Auto) 22.8 (19.3-51.7) % Hickman % (Auto) 20.1 H (4.7-12.5) % Eos % (Auto) 0.5 L (0.7-5.8) Baso % (Auto) 2.8 H (0.1-1.2) % Neut # (Auto) 6.19 H (1.56-6.13) K/mm3 Lymph # (Auto) 2.90 (1.18-3.74) K/mm3 Hickman # (Auto) 2.56 H (0.24-0.36) K/mm3 Eos # (Auto) 0.06 (0.04-0.36) K/mm3 Baso # (Auto) 0.35 H (0.01-0.08) K/mm3 Sodium (136-145) mEq/L Potassium (3.5-5.1) mEq/L Chloride (98-107) mEq/L Carbon Dioxide (21-32) mEq/L Anion Gap (5-15) BUN (7-18) mg/dL Creatinine (0.55-1.02) mg/dL Est Cr Clr Drug Dosing mL/min Estimated GFR (MDRD) (>60) mL/min BUN/Creatinine Ratio (14-18) Glucose (74-106) mg/dL Lactic Acid 3.0 H (0.4-2.0) mmol/L Calcium (8.5-10.1) mg/dL Total Bilirubin (0.2-1.0) mg/dL AST (15-37) U/L ALT (14-59) U/L Alkaline Phosphatase (46-116) U/L Total Protein (6.4-8.2) g/dl Albumin (3.4-5.0) g/dl Globulin gm/dL Albumin/Globulin Ratio (1-2) Procalcitonin (<0.10) ng/mL Cortisol ug/dL Lito Results Last 24 Hours: Microbiology 01/08/17 23:09 Streptococcus pneumoniae Antigen (M - Final Urine - Catheterized 01/09/17 08:28 Respiratory Virus Panel (PCR) ([facility]) - Final Nasopharyngeal Swab 01/09/17 10:55 Gram Stain - Final Sputum - Expectorated Med Orders - Current: Current Medications Acetaminophen (Tylenol) 650 mg PO Q4H PRN PRN Reason: Pain (Mild 1-3)/fever Last Admin: 01/09/17 08:48 Dose: 650 mg Acetaminophen/Butalbital/Caffeine (Fioricet 325-50-40 Mg) 1 tab PO Q6H PRN PRN Reason: Headache Last Admin: 01/10/17 00:09 Dose: 1 tab Albuterol/Ipratropium (Duoneb 3.0-0.5 Mg/3 Ml) 3 ml NEB Q4H PRN PRN Reason: Shortness Of Breath/wheezing Last Admin: 01/10/17 00:06 Dose: 3 ml Benzocaine/Menthol (Cepacol Sore Throat) 1 lozenge MUCMEM Q4H PRN PRN Reason: Sore Throat Last Admin: 01/09/17 08:48 Dose: 1 lozenge Benzonatate (Tessalon Perles) 100 mg PO TID PRN PRN Reason: Cough Last Admin: 01/09/17 18:12 Dose: 100 mg Bisacodyl (Dulcolax) 5 mg PO DAILY PRN PRN Reason: Constipation Docusate Sodium (Colace) 100 mg PO BID PRN PRN Reason: Constipation Guaifenesin/Phenylephrine HCl (Robitussin Dm) 10 ml PO Q4H PRN PRN Reason: Cough Last Admin: 01/09/17 15:50 Dose: 10 ml Hydralazine HCl (Apresoline) 20 mg IVPUSH Q4H PRN PRN Reason: Hypertension Hydrocortisone Sodium Succinate (Solu-Cortef) 100 mg IVPUSH Q6H [facility] Last Admin: 01/10/17 03:28 Dose: 100 mg Hydromorphone HCl (Dilaudid) 1 mg IVPUSH Q3H PRN PRN Reason: Pain (severe 7-10) Promethazine HCl 12.5 mg/ (Sodium Chloride) 50.5 mls @ 100 mls/hr IV Q6H PRN PRN Reason: Nausea/Vomiting Levofloxacin/Dextrose 750 mg/ (Premix) 150 mls @ 100 mls/hr IV Q48H [facility] Sodium Chloride (Normal Saline) 1,000 mls @ 250 mls/hr IV ASDIRECTED [facility] Last Admin: 01/10/17 04:04 Dose: 250 mls/hr Meropenem 500 mg/ Sodium (Chloride) 100 mls @ 200 mls/hr IV Q8H [facility] Last Admin: 01/10/17 03:27 Dose: 200 mls/hr Vancomycin HCl 1.25 gm/ Sodium (Chloride) 250 mls @ 250 mls/hr IV Q24H [facility] Last Admin: 01/09/17 21:27 Dose: 250 mls/hr Levothyroxine Sodium (Synthroid) 100 mcg PO DAILY [facility] Last Admin: 01/09/17 08:55 Dose: 100 mcg Loratadine (Claritin) 10 mg PO BEDTIME [facility] Last Admin: 01/09/17 20:28 Dose: 10 mg Lorazepam (Ativan) 2 mg IVPUSH Q4H PRN PRN Reason: Seizures Lorazepam (Ativan) 1 mg IVPUSH Q3H PRN PRN Reason: dyspnea, anxiety Last Admin: 01/10/17 03:29 Dose: 1 mg Magnesium Hydroxide (Milk Of Magnesia) 30 ml PO Q12H PRN PRN Reason: Constipation Metoprolol Tartrate (Lopressor) 5 mg IVPUSH Q4H PRN PRN Reason: Tachycardia Morphine Sulfate (Morphine) 1 mg IVPUSH Q4H PRN PRN Reason: Dyspnea Last Admin: 01/09/17 20:29 Dose: 1 mg Multivitamins (Thera) 1 each PO DAILY [facility] Last Admin: 01/09/17 08:55 Dose: 1 each Multivitamins/Minerals (Cerovite Advanced Formula Tablet) 1 tab PO BEDTIME [facility] Last Admin: 01/09/17 22:08 Dose: Not Given Non-Formulary Medication (Ubidecarenone) 100 mg PO DAILY [facility] Last Admin: 01/09/17 08:57 Dose: Not Given Ondansetron HCl (Zofran) 4 mg IV Q6H PRN PRN Reason: Nausea/Vomiting Oxycodone HCl (Oxycodone) 5 mg PO Q4H PRN PRN Reason: Pain (moderate 4-6) Last Admin: 01/09/17 13:26 Dose: 5 mg Pantoprazole Sodium (Protonix Iv) 40 mg IV Q12HR [facility] Last Admin: 01/09/17 20:27 Dose: 40 mg Polyethylene Glycol (Miralax) 17 gm PO DAILY PRN PRN Reason: Constipation Pyridoxine HCl (Vitamin B6-Pyridoxine) 100 mg PO BID [facility] Last Admin: 01/09/17 20:28 Dose: 100 mg Senna/Docusate Sodium (Senna Plus) 1 tab PO BID PRN PRN Reason: Constipation Sodium Chloride (Saline Flush) 10 ml FLUSH ASDIRECTED PRN PRN Reason: Keep Vein Open Last Admin: 01/08/17 17:47 Dose: 10 ml Temazepam (Restoril) 15 mg PO BEDTIME PRN PRN Reason: Sleep Thiamine HCl (Vitamin B-1) 100 mg PO BEDTIME FARHAT Tramadol HCl (Ultram) 50 mg PO DAILY PRN PRN Reason: Pain Vancomycin HCl (Pharmacy To Dose - Vancomycin) 0 dose .XX ASDIRECTED PRN PRN Reason: RX TO DOSE IV VANCOMYCIN Discontinued Medications Albuterol (Proventil Neb Soln) 2.5 mg NEB ONETIME ONE Stop: 01/08/17 17:02 Last Admin: 01/08/17 17:09 Dose: 2.5 mg Albuterol (Proventil Neb Soln) 2.5 mg NEB ONETIME ONE Stop: 01/08/17 18:32 Last Admin: 01/08/17 18:36 Dose: 2.5 mg Albuterol (Proventil Neb Soln) 2.5 mg NEB ONETIME ONE Stop: 01/08/17 18:33 Last Admin: 01/08/17 18:36 Dose: 2.5 mg Albuterol/Ipratropium (Duoneb 3.0-0.5 Mg/3 Ml) 3 ml NEB ONETIME ONE Stop: 01/08/17 18:18 Last Admin: 01/08/17 18:28 Dose: 3 ml Aspirin (Halfprin) 81 mg PO DAILY [facility] Last Admin: 01/09/17 09:02 Dose: Not Given Sodium Chloride (Normal Saline) 500 mls @ 999 mls/hr IV ONETIME ONE Stop: 01/08/17 17:31 Last Admin: 01/08/17 17:08 Dose: 999 mls/hr Levofloxacin/Dextrose 500 mg/ (Premix) 100 mls @ 100 mls/hr IV ONETIME ONE Stop: 01/08/17 18:21 Last Admin: 01/08/17 18:25 Dose: 100 mls/hr Sodium Chloride (Normal Saline) Confirm Administered Dose 1,000 mls @ as directed .ROUTE .STK-MED ONE Stop: 01/08/17 18:24 Last Admin: 01/08/17 18:44 Dose: Not Given Sodium Chloride (Normal Saline) 1,000 mls @ 999 mls/hr IV ONETIME ONE Stop: 01/08/17 19:43 Last Admin: 01/08/17 18:20 Dose: 999 mls/hr Magnesium Sulfate 2 gm/ Premix 50 mls @ 25 mls/hr IV ONETIME ONE Stop: 01/08/17 21:10 Last Admin: 01/08/17 19:19 Dose: 25 mls/hr Lactated Ringer's (Ringers, Lactated) 1,000 mls @ 999 mls/hr IV ASDIRECTED [facility] Last Admin: 01/08/17 23:36 Dose: 999 mls/hr Levofloxacin/Dextrose 750 mg/ (Premix) 150 mls @ 100 mls/hr IV ONETIME ONE Stop: 01/08/17 21:55 Last Admin: 01/08/17 23:40 Dose: Not Given Meropenem 1 gm/ Sodium (Chloride) 100 mls @ 200 mls/hr IV Q8H [facility] Last Admin: 01/09/17 04:03 Dose: 200 mls/hr Vancomycin HCl 1 gm/ Sodium (Chloride) 250 mls @ 250 mls/hr IV Q24H [facility] Last Admin: 01/08/17 22:17 Dose: 250 mls/hr Thiamine HCl 100 mg/ Sodium (Chloride) 101 mls @ 202 mls/hr IV ONETIME ONE Stop: 01/09/17 19:34 Last Admin: 01/09/17 20:27 Dose: 202 mls/hr Lorazepam (Ativan) 0.5 mg IVPUSH ONETIME ONE Stop: 01/08/17 17:11 Last Admin: 01/08/17 17:15 Dose: 0.5 mg Lorazepam (Ativan) 1 mg IV Q6H PRN PRN Reason: Anxiety Last Admin: 01/08/17 22:21 Dose: 1 mg Magnesium Sulfate (Magnesium Sulfate 50%) 2 gm IV ONETIME ONE Stop: 01/08/17 19:01 Methylprednisolone Sodium Succinate (Solu-Medrol) 125 mg IVPUSH ONETIME ONE Stop: 01/08/17 18:32 Last Admin: 01/08/17 18:35 Dose: 125 mg Vancomycin HCl (Vancomycin) 1 mg IV Q12H FARHAT - Exam Quality Assessment: Supplemental Oxygen General: Alert, Oriented, Cooperative, No Acute Distress HEENT: Pupils Equal, Pupils Reactive, EOMI, Mucous Membr. Moist/[place] Neck: Supple, Trachea Midline, No JVD, No Thyromegaly Lungs: Normal Respiratory Effort, Decreased Breath Sounds Cardiovascular: Regular Rate, Regular Rhythm GI/Abdominal Exam: Normal Bowel Sounds, Soft, Non-Tender, No Organomegaly, No Distention, No Abnormal Bruit, No Mass (Female) Exam: Deferred Back Exam: Normal Inspection, Decreased Range of Motion Extremities: Normal Inspection, Normal Range of Motion, Non-Tender, No Pedal Edema, Normal Capillary Refill Peripheral Pulses: 2+: Dorsalis Pedis (L), Dorsalis Pedis (R) Skin: Warm, Dry, Intact Neurological: No New Focal Deficit Psy/Mental Status: Alert, Normal Affect, Normal Mood. No: Agitated, Suicidal Ideation, Homicidal Ideation, Withdrawal Symptoms - Problem List Review Problem List Initiated/Reviewed/Updated: Yes - My Orders Last 24 Hours: My Active Orders 01/09/17 08:03 Benzocaine/Cetylpyrd/Menthol [Cepacol Sore Throat] 1 lozenge MUCMEM Q4H PRN 01/09/17 09:00 Levothyroxine [Synthroid] 100 mcg PO DAILY Multivitamins,Therapeutic [Thera] 1 each PO DAILY Ubidecarenone 100 mg PO DAILY 01/09/17 09:04 Dextromethorphan/guaiFENesin [Robitussin DM] 10 ml PO Q4H PRN 01/09/17 10:55 CULTURE SPUTUM + SMEAR [RM] Stat 01/09/17 12:00 Meropenem [Merrem] 500 mg Sodium Chloride 0.9% [Normal Saline] 100 ml IV Q8H 01/09/17 17:48 Benzonatate [Tessalon Perles] 100 mg PO TID PRN 01/09/17 20:05 HEPATITIS PANEL, ACUTE [REF] Stat 01/09/17 21:00 Multivitamins/Iron/Folic Acid [Cerovite Advanced Formula Tablet] 1 tab PO BEDTIME 01/09/17 22:00 Vancomycin 1.25 gm Sodium Chloride 0.9% [Normal Saline] 250 ml IV Q24H 01/09/17 22:10 Acetaminophen/Butalbital/Caff [Fioricet 325-50-40 MG] 1 tab PO Q6H PRN 01/10/17 07:09 C-REACTIVE PROTEIN [CHEM] AM CBC WITH AUTO DIFF [HEME] AM COMPREHENSIVE METABOLIC PN,CMP [CHEM] AM LACTIC ACID [CHEM] AM MAGNESIUM [CHEM] AM 01/10/17 09:00 Levofloxacin/Dextrose 5%-Water [Levaquin in D5W 750 MG/150 ML] 750 mg Premix Bag 1 bag IV Q48H Thiamine [Vitamin B-1] 100 mg PO BEDTIME 01/11/17 05:11 C-REACTIVE PROTEIN [CHEM] AM CBC WITH AUTO DIFF [HEME] AM COMPREHENSIVE METABOLIC PN,CMP [CHEM] AM MAGNESIUM [CHEM] AM 01/12/17 05:11 C-REACTIVE PROTEIN [CHEM] AM CBC WITH AUTO DIFF [HEME] AM COMPREHENSIVE METABOLIC PN,CMP [CHEM] AM MAGNESIUM [CHEM] AM - Plan Plan:: Assessment/Plan: Acute: Acute Bronchitis/Acute Bronchospasm - Risk Factors: Dysphagia and Hiatal Hernia - IV ATB, Bronchodilators, IV Steroids, RT Care, PPIs - Follow-up CXR: does not support diagnosis of pneumonia - Decongestant/Suppressant/Expectorant - IS/FV as directed Sepsis With Profound Resolved Hypotension - W/o clear etiology but suspect viral at this point - High suspicious of Acute Viral Illness - Associated Respiratory Failure, Leukocytosis, Tachycardia, Lactic Acidosis , Hypotension (99/59 on admission)Transaminitis, Thrombocytopenia and Acute Renal Failure - No hx/o HF or Cardiomyopathy - Discontinue Solucortef 100 mg IV Q6 - Continue IV ATB: Levaquin, Meropenem and Vancomyin all for pharmacy to renally dose - Requested Central Line Placement in ED, was not done Leukocytosis, Unchanged from yesterday - WBC 19.11 --> 12.69 and CRP 19.6 --> 13.1 - Likely from Sepsis and PNA - UA is negative; Hickman-screen negative; Influenza A/B screening negative; Blood Culture x 2 negative, Sputum Cx -pending - Treat underlying cause - She is on IV Steroids - Continue Monitor Thrombocytopenia, trending down - Platelet of 46 --> 38 --> 31 - No ecchymosis or bruising noted - No active bleeding - She is on ASA; will hold it - Monitor level Transaminitis, Improved - AST 193 --> 162--> 108 and ALT 230 --> 177--> 129 - She drinks mixed ETOH every night - Avoid Acetaminophen if all possible - Hepatitis Panel ordered - Continue to Monitor Resolved: Right Lower Lobe PNA - CXR shows possible right sided lower lobe infiltrate - IV ATB, Bronchodilators, IV Steroids, RT Care - Follow-up CXR: does not support diagnosis of pneumonia - She has bronchitis instead Elevated Hgb Level at 18.8 --> 15.01 - Likely 2/2 Severe Dehydration - cannot r/o Polycythemia Vera - She may chronic lung disease +/- renal insufficiency - Will monitor Acute Respiratory Failure - O2 Sat at 85% with 15 NRM - Received Multiple breathing treatment in ED w/o any success - On BIPAP with setting of 10/5 with FiO2 of 60% - No ABG taken before BIPAP was put on - Consider intubation if respiratory status does not improve - She is now off BIPAP Elevated D-Dimer, Unchanged - D-Dimer 1.34 - Likely from PNA - CTA is CI due to acute renal failure - No Anti-coags due to Low platelet level of 46 - May consider CTA in AM Acute Renal Failure, Resolved - BUN 25.7--> 16 --> 10.2 and Cr 2.1--> 1.2 --> 0.7 - Baseline GFR > 60; she is at 24 --> no at baseline - Likely 2/2 Severe Volume Depletion - Risk factors: She is on Meloxicam and Metformin - Continue IV Hydration - Avoid Nephrotoxic agents - Pharmacy to adjust all medications Lactic Acidosis, Resolved - 2/2 Sepsis - LA 4.4---> 2.6 - So far she has gotten 5 total L of fluids - Continue current IVF for maintenance fluid Chronic: AR Impaired Vision HLD Asthma Dysphagia OA Chronic Hip Pain Scoliosis Hypothyroidism Plan: She is clinically much better She stays ICU for now Continue Sepsis Protocol Saline lock D/c mahajan catheter Mucinex 1200 mg po BID Continue PT/OT SW/CM for d/c planning GI PPx: PPIs DVT PPx: SCDS Encourage to eat whatever she wants Additional orders as above Code status: 1 Prognosis Stable-Guarded
[2017-01-10] MEDS ORDERED: Levofloxacin/Dextrose 5%-Water 750 MG in Premix Bag 1 BAG IV SCH (09:00)
[2017-01-10] MEDS: Levothyroxine 100 MCG Tab PO SCH (09:15)
[2017-01-10] MEDS: Pantoprazole 40 MG Vial IV SCH ×2 (09:15→20:13)
[2017-01-10] MEDS: Non-Formulary Medication 1 Each (Ubidecarenone 100 MG) PO SCH (09:16)
[2017-01-10] MEDS: Multivitamins,Therapeutic Tab PO SCH (09:16)
[2017-01-10] MEDS: Vitamin B6-pyridOXINE 50 MG Tab PO SCH ×2 (09:16→20:10)
[2017-01-10] MEDS: Thiamine 100 MG Tab PO SCH ×2 (09:16→20:12)
[2017-01-10] MEDS: guaiFENesin 600 MG Tab.ER PO SCH ×2 (10:36→20:11)
[2017-01-10] MEDS ORDERED: Potassium Chloride 20 MEQ Tab.ER PO ONE (12:31)
[2017-01-10] MEDS: Morphine 2 MG/ML Syringe IVPUSH PRN (19:13)
[2017-01-10] MEDS: methylPREDNISolone Sodium Succinate 125 MG/2 ML SDV IVPUSH SCH (20:12)
[2017-01-10] MEDS: Loratadine 10 MG Tab PO SCH (20:13)
[2017-01-11] MEDS: Meropenem 500 MG in Sodium Chloride 0.9% 100 ML IV SCH ×3 (04:10→20:06)
[2017-01-11] MEDS: Albuterol/Ipratropium 3.0-0.5 MG/3 ML Neb Soln NEB PRN ×5 (04:22→20:45)
[2017-01-11] MEDS: Benzonatate 100 MG Cap PO PRN ×2 (04:47→20:07)
--- NOTE | 2017-01-11 07:38 | PCM.PN ---
- General Info Date of Service: 01/11/17 Admission Dx/Problem (Free Text): Sepsis Subjective Update: Follow Up Functional Status: Reports: Pain Controlled, Tolerating Diet, Ambulating, Urinating. Denies: New Symptoms - Review of Systems General: Reports: Weakness. Denies: Fever, Fatigue, Malaise, Chills HEENT: Reports: No Symptoms Pulmonary: Reports: Cough, Wheezing. Denies: Shortness of Breath, Pleuritic Chest Pain, Sputum Cardiovascular: Denies: Chest Pain, Palpitations, Dyspnea on Exertion, Lightheadedness Gastrointestinal: Reports: Decreased Appetite. Denies: Abdominal Pain, Nausea, Vomiting Genitourinary: Reports: No Symptoms Musculoskeletal: Reports: No Symptoms Skin: Denies: Cyanosis, Pruritis, Rash Neurological: Reports: Weakness. Denies: Confusion, Difficulty Walking, Gait Disturbance Psychiatric: Denies: Confusion, Depression, Mood Lability, Anxiety, Agitation, Cravings, Hallucinations Systems Review Comment:: No significant overnight or acute issues. She states "I feel like I am getting better". Her appetite still not good. She is still sore all over. Her potassium dropped to 2.9 this morning. She has no other complaints. She is afebrile without leukocytosis. - Patient Data Vitals - Most Recent: Last Vital Signs Temp 36.7 C 01/11/17 04:00 Pulse 85 01/10/17 16:00 Resp 18 01/11/17 04:00 BP 130/60 01/11/17 04:00 Pulse Ox 94 L 01/11/17 04:22 Weight - Most Recent: 86.137 kg I&O - Last 24 Hours: Intake & Output 01/10/17 01/11/17 01/11/17 22:59 06:59 14:59 Intake Total 1050 Output Total 250 500 Balance -250 550 Lab Results Last 24 Hours: Laboratory Results - last 24 hr 01/10/17 01/10/17 01/10/17 Range/Units 07:09 07:09 07:09 WBC (3.98-10.04) K/mm3 RBC (3.98-5.22) M/mm3 Hgb (11.2-15.7) gm/L Hct (34.1-44.9) % MCV (79.4-94.8) fl MCH (25.6-32.2) pg MCHC (32.2-35.5) g/dl RDW Std Deviation (36.4-46.3) fL Plt Count (182-369) K/mm3 MPV (9.4-12.3) fl Neut % (Auto) (34.0-71.1) % Lymph % (Auto) (19.3-51.7) % [place] % (Auto) (4.7-12.5) % Eos % (Auto) (0.7-5.8) Baso % (Auto) (0.1-1.2) % Neut # (Auto) (1.56-6.13) K/mm3 Lymph # (Auto) (1.18-3.74) K/mm3 [place] # (Auto) (0.24-0.36) K/mm3 Eos # (Auto) (0.04-0.36) K/mm3 Baso # (Auto) (0.01-0.08) K/mm3 Manual Slide Review Abnormal smear Sodium 139 (136-145) mEq/L Potassium 3.2 L (3.5-5.1) mEq/L Chloride 112 H (98-107) mEq/L Carbon Dioxide 20 L (21-32) mEq/L Anion Gap 10.2 (5-15) BUN 13 (7-18) mg/dL Creatinine 0.7 (0.55-1.02) mg/dL Est Cr Clr Drug Dosing 70.70 mL/min Estimated GFR (MDRD) > 60 (>60) mL/min BUN/Creatinine Ratio 18.6 H (14-18) Glucose 135 H (74-106) mg/dL Lactic Acid 0.8 (0.4-2.0) mmol/L Calcium 7.3 L (8.5-10.1) mg/dL Magnesium 2.2 (1.8-2.4) mg/dl Total Bilirubin 0.4 (0.2-1.0) mg/dL AST 108 H (15-37) U/L ALT 129 H (14-59) U/L Alkaline Phosphatase 163 H (46-116) U/L C-Reactive Protein 4.4 H* (<1.0) mg/dL Total Protein 4.8 L (6.4-8.2) g/dl Albumin 2.0 L (3.4-5.0) g/dl Globulin 2.8 gm/dL Albumin/Globulin Ratio 0.7 L (1-2) 01/11/17 Range/Units 05:45 WBC 8.20 (3.98-10.04) K/mm3 RBC 3.80 L (3.98-5.22) M/mm3 Hgb 11.7 (11.2-15.7) gm/L Hct 34.7 (34.1-44.9) % MCV 91.3 (79.4-94.8) fl MCH 30.8 (25.6-32.2) pg MCHC 33.7 (32.2-35.5) g/dl RDW Std Deviation 44.1 (36.4-46.3) fL Plt Count 35 L (182-369) K/mm3 MPV 11.3 (9.4-12.3) fl Neut % (Auto) 57.5 (34.0-71.1) % Lymph % (Auto) 22.1 (19.3-51.7) % [place] % (Auto) 14.3 H (4.7-12.5) % Eos % (Auto) 1.5 (0.7-5.8) Baso % (Auto) 1.3 H (0.1-1.2) % Neut # (Auto) 4.72 (1.56-6.13) K/mm3 Lymph # (Auto) 1.81 (1.18-3.74) K/mm3 [place] # (Auto) 1.17 H (0.24-0.36) K/mm3 Eos # (Auto) 0.12 (0.04-0.36) K/mm3 Baso # (Auto) 0.11 H (0.01-0.08) K/mm3 Manual Slide Review Sodium (136-145) mEq/L Potassium (3.5-5.1) mEq/L Chloride (98-107) mEq/L Carbon Dioxide (21-32) mEq/L Anion Gap (5-15) BUN (7-18) mg/dL Creatinine (0.55-1.02) mg/dL Est Cr Clr Drug Dosing mL/min Estimated GFR (MDRD) (>60) mL/min BUN/Creatinine Ratio (14-18) Glucose (74-106) mg/dL Lactic Acid (0.4-2.0) mmol/L Calcium (8.5-10.1) mg/dL Magnesium (1.8-2.4) mg/dl Total Bilirubin (0.2-1.0) mg/dL AST (15-37) U/L ALT (14-59) U/L Alkaline Phosphatase (46-116) U/L C-Reactive Protein (<1.0) mg/dL Total Protein (6.4-8.2) g/dl Albumin (3.4-5.0) g/dl Globulin gm/dL Albumin/Globulin Ratio (1-2) Lito Results Last 24 Hours: Microbiology 01/08/17 23:09 Urine Culture - Preliminary Urine, Clean Catch NO GROWTH AFTER 1 DAY 01/09/17 10:55 Gram Stain - Final Sputum - Expectorated Sputum Culture - Preliminary NORMAL RESPIRATORY TRESA 1 DAY 01/08/17 23:09 Streptococcus pneumoniae Antigen (M - Final Urine - Catheterized Med Orders - Current: Current Medications Acetaminophen (Tylenol) 650 mg PO Q4H PRN PRN Reason: Pain (Mild 1-3)/fever Last Admin: 01/09/17 08:48 Dose: 650 mg Acetaminophen/Butalbital/Caffeine (Fioricet 325-50-40 Mg) 1 tab PO Q6H PRN PRN Reason: Headache Last Admin: 01/10/17 00:09 Dose: 1 tab Albuterol/Ipratropium (Duoneb 3.0-0.5 Mg/3 Ml) 3 ml NEB Q4H PRN PRN Reason: Shortness Of Breath/wheezing Last Admin: 01/11/17 04:22 Dose: 3 ml Benzocaine/Menthol (Cepacol Sore Throat) 1 lozenge MUCMEM Q4H PRN PRN Reason: Sore Throat Last Admin: 01/09/17 08:48 Dose: 1 lozenge Benzonatate (Tessalon Perles) 100 mg PO TID PRN PRN Reason: Cough Last Admin: 01/11/17 04:47 Dose: 100 mg Bisacodyl (Dulcolax) 5 mg PO DAILY PRN PRN Reason: Constipation Docusate Sodium (Colace) 100 mg PO BID PRN PRN Reason: Constipation Guaifenesin (Mucinex) 1,200 mg PO BID FARHAT Last Admin: 01/10/17 20:11 Dose: 1,200 mg Guaifenesin/Phenylephrine HCl (Robitussin Dm) 10 ml PO Q4H PRN PRN Reason: Cough Last Admin: 01/09/17 15:50 Dose: 10 ml Hydralazine HCl (Apresoline) 20 mg IVPUSH Q4H PRN PRN Reason: Hypertension Hydromorphone HCl (Dilaudid) 1 mg IVPUSH Q3H PRN PRN Reason: Pain (severe 7-10) Promethazine HCl 12.5 mg/ (Sodium Chloride) 50.5 mls @ 100 mls/hr IV Q6H PRN PRN Reason: Nausea/Vomiting Levofloxacin/Dextrose 750 mg/ (Premix) 150 mls @ 100 mls/hr IV Q48H [facility] Last Admin: 01/10/17 09:18 Dose: 100 mls/hr Meropenem 500 mg/ Sodium (Chloride) 100 mls @ 200 mls/hr IV Q8H [facility] Last Admin: 01/11/17 04:10 Dose: 100 mls/hr Vancomycin HCl 1.25 gm/ Sodium (Chloride) 250 mls @ 250 mls/hr IV Q24H [facility] Last Admin: 01/10/17 22:12 Dose: 250 mls/hr Levothyroxine Sodium (Synthroid) 100 mcg PO DAILY [facility] Last Admin: 01/10/17 09:15 Dose: 100 mcg Loratadine (Claritin) 10 mg PO BEDTIME [facility] Last Admin: 01/10/17 20:13 Dose: 10 mg Lorazepam (Ativan) 2 mg IVPUSH Q4H PRN PRN Reason: Seizures Lorazepam (Ativan) 1 mg IVPUSH Q3H PRN PRN Reason: dyspnea, anxiety Last Admin: 01/10/17 13:08 Dose: 1 mg Magnesium Hydroxide (Milk Of Magnesia) 30 ml PO Q12H PRN PRN Reason: Constipation Magnesium Sulfate (Pharmacy To Dose - Magnesium Replacement) 1 dose .XX ASDIRECTED [facility] Methylprednisolone Sodium Succinate (Solu-Medrol) 60 mg IVPUSH Q12H [facility] Last Admin: 01/10/17 20:12 Dose: 60 mg Metoprolol Tartrate (Lopressor) 5 mg IVPUSH Q4H PRN PRN Reason: Tachycardia Morphine Sulfate (Morphine) 1 mg IVPUSH Q4H PRN PRN Reason: Dyspnea Last Admin: 01/10/17 19:13 Dose: 1 mg Multivitamins (Thera) 1 each PO DAILY [facility] Last Admin: 01/10/17 09:16 Dose: Not Given Non-Formulary Medication (Ubidecarenone) 100 mg PO DAILY [facility] Last Admin: 01/10/17 09:16 Dose: Not Given Ondansetron HCl (Zofran) 4 mg IV Q6H PRN PRN Reason: Nausea/Vomiting Oxycodone HCl (Oxycodone) 5 mg PO Q4H PRN PRN Reason: Pain (moderate 4-6) Last Admin: 01/09/17 13:26 Dose: 5 mg Pantoprazole Sodium (Protonix Iv) 40 mg IV Q12HR [facility] Last Admin: 01/10/17 20:13 Dose: 40 mg Polyethylene Glycol (Miralax) 17 gm PO DAILY PRN PRN Reason: Constipation Potassium Chloride (Pharmacy To Dose - Potassium Replacement) 1 dose .XX ASDIRECTED [facility] Pyridoxine HCl (Vitamin B6-Pyridoxine) 100 mg PO BID [facility] Last Admin: 01/10/17 20:10 Dose: 100 mg Senna/Docusate Sodium (Senna Plus) 1 tab PO BID PRN PRN Reason: Constipation Sodium Chloride (Saline Flush) 10 ml FLUSH ASDIRECTED PRN PRN Reason: Keep Vein Open Last Admin: 01/08/17 17:47 Dose: 10 ml Temazepam (Restoril) 15 mg PO BEDTIME PRN PRN Reason: Sleep Last Admin: 01/10/17 23:22 Dose: 15 mg Thiamine HCl (Vitamin B-1) 100 mg PO BEDTIME [facility] Last Admin: 01/10/17 20:12 Dose: 100 mg Tramadol HCl (Ultram) 50 mg PO DAILY PRN PRN Reason: Pain Vancomycin HCl (Pharmacy To Dose - Vancomycin) 0 dose .XX ASDIRECTED PRN PRN Reason: RX TO DOSE IV VANCOMYCIN Discontinued Medications Albuterol (Proventil Neb Soln) 2.5 mg NEB ONETIME ONE Stop: 01/08/17 17:02 Last Admin: 01/08/17 17:09 Dose: 2.5 mg Albuterol (Proventil Neb Soln) 2.5 mg NEB ONETIME ONE Stop: 01/08/17 18:32 Last Admin: 01/08/17 18:36 Dose: 2.5 mg Albuterol (Proventil Neb Soln) 2.5 mg NEB ONETIME ONE Stop: 01/08/17 18:33 Last Admin: 01/08/17 18:36 Dose: 2.5 mg Albuterol/Ipratropium (Duoneb 3.0-0.5 Mg/3 Ml) 3 ml NEB ONETIME ONE Stop: 01/08/17 18:18 Last Admin: 01/08/17 18:28 Dose: 3 ml Aspirin (Halfprin) 81 mg PO DAILY [facility] Last Admin: 01/09/17 09:02 Dose: Not Given Hydrocortisone Sodium Succinate (Solu-Cortef) 100 mg IVPUSH Q6H [facility] Last Admin: 01/10/17 14:00 Dose: 100 mg Sodium Chloride (Normal Saline) 500 mls @ 999 mls/hr IV ONETIME ONE Stop: 01/08/17 17:31 Last Admin: 01/08/17 17:08 Dose: 999 mls/hr Levofloxacin/Dextrose 500 mg/ (Premix) 100 mls @ 100 mls/hr IV ONETIME ONE Stop: 01/08/17 18:21 Last Admin: 01/08/17 18:25 Dose: 100 mls/hr Sodium Chloride (Normal Saline) Confirm Administered Dose 1,000 mls @ as directed .ROUTE .STK-MED ONE Stop: 01/08/17 18:24 Last Admin: 01/08/17 18:44 Dose: Not Given Sodium Chloride (Normal Saline) 1,000 mls @ 999 mls/hr IV ONETIME ONE Stop: 01/08/17 19:43 Last Admin: 01/08/17 18:20 Dose: 999 mls/hr Magnesium Sulfate 2 gm/ Premix 50 mls @ 25 mls/hr IV ONETIME ONE Stop: 01/08/17 21:10 Last Admin: 01/08/17 19:19 Dose: 25 mls/hr Lactated Ringer's (Ringers, Lactated) 1,000 mls @ 999 mls/hr IV ASDIRECTED [facility] Last Admin: 01/08/17 23:36 Dose: 999 mls/hr Levofloxacin/Dextrose 750 mg/ (Premix) 150 mls @ 100 mls/hr IV ONETIME ONE Stop: 01/08/17 21:55 Last Admin: 01/08/17 23:40 Dose: Not Given Meropenem 1 gm/ Sodium (Chloride) 100 mls @ 200 mls/hr IV Q8H [facility] Last Admin: 01/09/17 04:03 Dose: 200 mls/hr Vancomycin HCl 1 gm/ Sodium (Chloride) 250 mls @ 250 mls/hr IV Q24H [facility] Last Admin: 01/08/17 22:17 Dose: 250 mls/hr Sodium Chloride (Normal Saline) 1,000 mls @ 250 mls/hr IV ASDIRECTED [facility] Last Admin: 01/10/17 04:04 Dose: 250 mls/hr Thiamine HCl 100 mg/ Sodium (Chloride) 101 mls @ 202 mls/hr IV ONETIME ONE Stop: 01/09/17 19:34 Last Admin: 01/09/17 20:27 Dose: 202 mls/hr Lorazepam (Ativan) 0.5 mg IVPUSH ONETIME ONE Stop: 01/08/17 17:11 Last Admin: 01/08/17 17:15 Dose: 0.5 mg Lorazepam (Ativan) 1 mg IV Q6H PRN PRN Reason: Anxiety Last Admin: 01/08/17 22:21 Dose: 1 mg Magnesium Sulfate (Magnesium Sulfate 50%) 2 gm IV ONETIME ONE Stop: 01/08/17 19:01 Methylprednisolone Sodium Succinate (Solu-Medrol) 125 mg IVPUSH ONETIME ONE Stop: 01/08/17 18:32 Last Admin: 01/08/17 18:35 Dose: 125 mg Multivitamins/Minerals (Cerovite Advanced Formula Tablet) 1 tab PO BEDTIME [facility] Last Admin: 01/09/17 22:08 Dose: Not Given Potassium Chloride (Klor-Con M20) 40 meq PO ONETIME ONE Stop: 01/10/17 12:32 Last Admin: 01/10/17 13:08 Dose: 40 meq Vancomycin HCl (Vancomycin) 1 mg IV Q12H [facility] - Exam General: Alert, Oriented, Cooperative, No Acute Distress HEENT: Pupils Equal, Pupils Reactive, EOMI, Mucous Membr. Moist/[place] Neck: Supple, Trachea Midline, No Thyromegaly Lungs: Normal Respiratory Effort, Decreased Breath Sounds, Crackles Cardiovascular: Regular Rate, Regular Rhythm GI/Abdominal Exam: Normal Bowel Sounds, Soft, Non-Tender, No Organomegaly, No Distention, No Abnormal Bruit, No Mass (Female) Exam: Deferred Back Exam: Normal Inspection, Decreased Range of Motion Extremities: Normal Inspection, Normal Range of Motion, Non-Tender, No Pedal Edema, Normal Capillary Refill Peripheral Pulses: 2+: Dorsalis Pedis (L), Dorsalis Pedis (R) Skin: Warm, Intact, Moist Neurological: No New Focal Deficit Psy/Mental Status: Alert, Normal Affect, Normal Mood - Problem List Review Problem List Initiated/Reviewed/Updated: Yes - My Orders Last 24 Hours: My Active Orders 01/10/17 09:00 Communication Order [RC] CONTINUOUS Levofloxacin/Dextrose 5%-Water [Levaquin in D5W 750 MG/150 ML] 750 mg Premix Bag 1 bag IV Q48H Thiamine [Vitamin B-1] 100 mg PO BEDTIME 01/10/17 10:15 guaiFENesin [Mucinex] 1,200 mg PO BID 01/10/17 12:07 Chest Physiotherapy [RT Chest Physiotherapy] [RC] ASDIRECTED 01/10/17 12:45 Magnesium Rep Pharmacy to Dose [Pharmacy to Dose - Magnesium Replacement] 1 dose .XX ASDIRECTED 01/10/17 21:00 methylPREDNISolone Sod Succ [Solu-MEDROL] 60 mg IVPUSH Q12H 01/11/17 05:45 C-REACTIVE PROTEIN [CHEM] AM CBC WITH AUTO DIFF [HEME] AM COMPREHENSIVE METABOLIC PN,CMP [CHEM] AM MAGNESIUM [CHEM] AM 01/11/17 06:00 Potassium Rep Pharmacy to Dose [Pharmacy to Dose - Potassium Replacement] 1 dose .XX ASDIRECTED 01/12/17 05:11 C-REACTIVE PROTEIN [CHEM] AM CBC WITH AUTO DIFF [HEME] AM COMPREHENSIVE METABOLIC PN,CMP [CHEM] AM MAGNESIUM [CHEM] AM - Plan Plan:: Assessment/Plan: Acute: Acute Bronchitis/Acute Bronchospasm - Risk Factors: Dysphagia and Hiatal Hernia - IV ATB, Bronchodilators, IV Steroids, RT Care, PPIs - Follow-up CXR: does not support diagnosis of pneumonia - Decongestant/Suppressant/Expectorant - IS/FV as directed Thrombocytopenia, starting to go up - Platelet of 46 --> 38 --> 31--> 35 - No ecchymosis or bruising noted - No active bleeding - Hold ASA - Continue to monitor level Transaminitis/Hepatitis, Continue to improves - AST 193 --> 162--> 108--> 80 and ALT 230 --> 177--> 129 --> 123 - She drinks mixed ETOH every night - Avoid Acetaminophen if all possible - Hepatitis Panel ordered - Continue to Monitor Resolved: Right Lower Lobe PNA - CXR shows possible right sided lower lobe infiltrate - IV ATB, Bronchodilators, IV Steroids, RT Care - Follow-up CXR: does not support diagnosis of pneumonia - She has bronchitis instead Elevated Hgb Level at 18.8 --> 15.01 - Likely 2/2 Severe Dehydration - cannot r/o Polycythemia Vera - She may chronic lung disease +/- renal insufficiency - Will monitor Acute Respiratory Failure - O2 Sat at 85% with 15 NRM - Received Multiple breathing treatment in ED w/o any success - On BIPAP with setting of 10/5 with FiO2 of 60% - No ABG taken before BIPAP was put on - Consider intubation if respiratory status does not improve - She is now off BIPAP Elevated D-Dimer, Unchanged - D-Dimer 1.34 - Likely from PNA - CTA is CI due to acute renal failure - No Anti-coags due to Low platelet level of 46 - May consider CTA in AM Acute Renal Failure, Resolved - BUN 25.7--> 16 --> 10.2 and Cr 2.1--> 1.2 --> 0.7 - Baseline GFR > 60; she is at 24 --> no at baseline - Likely 2/2 Severe Volume Depletion - Risk factors: She is on Meloxicam and Metformin - Continue IV Hydration - Avoid Nephrotoxic agents - Pharmacy to adjust all medications Lactic Acidosis, Resolved - 2/2 Sepsis - LA 4.4---> 2.6 - So far she has gotten 5 total L of fluids - Continue current IVF for maintenance fluid Leukocytosis, Resolved - WBC 19.11 --> 12.69 --> 8.20 and CRP 19.6 --> 13.1--> 2.6 - Likely from Sepsis and PNA - UA is negative; [place]-screen negative; Influenza A/B screening negative; Blood Culture x 2 negative, Sputum Cx -pending - Treat underlying cause - She is on IV Steroids - Continue Monitor Sepsis With Profound Resolved Hypotension - W/o clear etiology but suspect viral at this point - High suspicious of Acute Viral Illness - Associated Respiratory Failure, Leukocytosis, Tachycardia, Lactic Acidosis , Hypotension (99/59 on admission)Transaminitis, Thrombocytopenia and Acute Renal Failure - No hx/o HF or Cardiomyopathy - Discontinue Solucortef 100 mg IV Q6 - Received IV ATB: Levaquin, Meropenem and Vancomyin all for pharmacy to renally dose - Requested Central Line Placement in ED, was not done Chronic: AR Impaired Vision HLD Asthma Dysphagia OA Chronic Hip Pain Scoliosis Hypothyroidism Plan: She is clinically improving but slowly Transfer to [facility] with Telemetry Continue current treatment Continue PT/OT Change Solumedrol to 40 mg IV daily starting in AM SW/CM for d/c planning GI PPx: PPIs DVT PPx: SCDS Encourage to eat whatever she wants Additional orders as above Code status: 1 Prognosis Stable-Guarded All her cultures and basic work up shows no definite organismal growth. We will start de-escalating her antibiotics. Will discontinue intravenous Meropenem and Vancomycin.
[2017-01-11] MEDS: Potassium Chloride 20 MEQ Tab.ER PO SCH ×3 (09:10→16:22)
[2017-01-11] MEDS: Vitamin B6-pyridOXINE 50 MG Tab PO SCH ×2 (09:10→20:06)
[2017-01-11] MEDS: Multivitamins,Therapeutic Tab PO SCH (09:11)
[2017-01-11] MEDS: guaiFENesin 600 MG Tab.ER PO SCH ×2 (09:11→20:06)
[2017-01-11] MEDS: Levothyroxine 100 MCG Tab PO SCH (09:11)
[2017-01-11] MEDS: Pantoprazole 40 MG Vial IV SCH ×2 (09:13→20:08)
[2017-01-11] MEDS: methylPREDNISolone Sodium Succinate 125 MG/2 ML SDV IVPUSH SCH ×2 (09:13→20:08)
[2017-01-11] MEDS: Non-Formulary Medication 1 Each (Ubidecarenone 100 MG) PO SCH (09:20)
[2017-01-11] MEDS: Acetaminophen 325 MG Tab PO PRN (17:31)
[2017-01-11] MEDS: Loratadine 10 MG Tab PO SCH (20:06)
[2017-01-11] MEDS: Thiamine 100 MG Tab PO SCH (20:06)
[2017-01-11] MEDS: guaiFENesin/Dextromethorphan 100-10 MG/5 ML Soln 5 ML Cup PO PRN (20:07)
[2017-01-11] MEDS: oxyCODONE 5 MG Tab PO PRN (20:07)
[2017-01-11] MEDS ORDERED: Levofloxacin/Dextrose 5%-Water 750 MG in Premix Bag 1 BAG IV SCH (21:00)
[2017-01-11] MEDS: LORazepam 2 MG/ML MDV IVPUSH PRN (22:23)
[2017-01-12] MEDS: Albuterol/Ipratropium 3.0-0.5 MG/3 ML Neb Soln NEB PRN ×2 (08:08→13:21)
[2017-01-12] MEDS ORDERED: methylPREDNISolone Sodium Succinate 40 MG/1 ML SDV IVPUSH SCH (09:00)
[2017-01-12] MEDS: Vitamin B6-pyridOXINE 50 MG Tab PO SCH (09:05)
[2017-01-12] MEDS: Levothyroxine 100 MCG Tab PO SCH (09:06)
[2017-01-12] MEDS: Multivitamins,Therapeutic Tab PO SCH (09:07)
[2017-01-12] MEDS: guaiFENesin 600 MG Tab.ER PO SCH (09:07)
[2017-01-12] MEDS: Pantoprazole 40 MG Vial IV SCH (09:09)
[2017-01-12] MEDS: Non-Formulary Medication 1 Each (Ubidecarenone 100 MG) PO SCH (09:36)
--- NOTE | 2017-01-12 09:59 | PCM.PN ---
<SerenaKhadijah - Last Filed: 01/12/17 09:54> - General Info Date of Service: 01/12/17 Admission Dx/Problem (Free Text): Sepsis Subjective Update: Follow Up Functional Status: Reports: Pain Controlled - Review of Systems General: Reports: No Symptoms HEENT: Reports: No Symptoms Pulmonary: Reports: Cough Cardiovascular: Reports: No Symptoms Gastrointestinal: Reports: No Symptoms Musculoskeletal: Reports: No Symptoms Neurological: Reports: No Symptoms Psychiatric: Reports: No Symptoms - Patient Data Vitals - Most Recent: Last Vital Signs Temp 97.5 F 01/12/17 07:55 Pulse 63 01/12/17 07:55 Resp 20 01/12/17 07:55 BP 136/84 01/12/17 07:55 Pulse Ox 96 01/12/17 08:09 Weight - Most Recent: 85.411 kg I&O - Last 24 Hours: Intake & Output 01/11/17 01/12/17 01/12/17 22:59 06:59 14:59 Intake Total 1700 950 Output Total 1000 800 Balance 700 150 Lab Results Last 24 Hours: Laboratory Results - last 24 hr 01/12/17 01/12/17 Range/Units 05:41 05:41 WBC 5.41 (3.98-10.04) K/mm3 RBC 3.46 L (3.98-5.22) M/mm3 Hgb 10.6 L (11.2-15.7) gm/L Hct 31.7 L (34.1-44.9) % MCV 91.6 (79.4-94.8) fl MCH 30.6 (25.6-32.2) pg MCHC 33.4 (32.2-35.5) g/dl RDW Std Deviation 43.5 (36.4-46.3) fL Plt Count 47 L (182-369) K/mm3 MPV 11.9 (9.4-12.3) fl Neut % (Auto) 64.9 (34.0-71.1) % Lymph % (Auto) 26.8 (19.3-51.7) % Stephenson % (Auto) 5.4 (4.7-12.5) % Eos % (Auto) 0.2 L (0.7-5.8) Baso % (Auto) 0.7 (0.1-1.2) % Neut # (Auto) 3.51 (1.56-6.13) K/mm3 Lymph # (Auto) 1.45 (1.18-3.74) K/mm3 Stephenson # (Auto) 0.29 (0.24-0.36) K/mm3 Eos # (Auto) 0.01 L (0.04-0.36) K/mm3 Baso # (Auto) 0.04 (0.01-0.08) K/mm3 Manual Slide Review Abnormal smear Sodium 142 (136-145) mEq/L Potassium 3.9 (3.5-5.1) mEq/L Chloride 109 H (98-107) mEq/L Carbon Dioxide 23 (21-32) mEq/L Anion Gap 13.9 (5-15) BUN 14 (7-18) mg/dL Creatinine 0.6 (0.55-1.02) mg/dL Est Cr Clr Drug Dosing 82.48 mL/min Estimated GFR (MDRD) > 60 (>60) mL/min BUN/Creatinine Ratio 23.3 H (14-18) Glucose 147 H (74-106) mg/dL Calcium 8.4 L (8.5-10.1) mg/dL Magnesium 2.2 (1.8-2.4) mg/dl Total Bilirubin 0.5 (0.2-1.0) mg/dL AST 55 H (15-37) U/L ALT 121 H (14-59) U/L Alkaline Phosphatase 125 H (46-116) U/L C-Reactive Protein 2.4 H* (<1.0) mg/dL Total Protein 5.7 L (6.4-8.2) g/dl Albumin 2.5 L (3.4-5.0) g/dl Globulin 3.2 gm/dL Albumin/Globulin Ratio 0.8 L (1-2) Lito Results Last 24 Hours: Microbiology 01/08/17 23:09 Urine Culture - Final Urine, Clean Catch NO GROWTH AFTER 2 DAYS 01/09/17 10:55 Gram Stain - Final Sputum - Expectorated Sputum Culture - Final NORMAL RESPIRATORY KATIE 2 DAYS Med Orders - Current: Current Medications Acetaminophen (Tylenol) 650 mg PO Q4H PRN PRN Reason: Pain (Mild 1-3)/fever Last Admin: 09/24/17 17:31 Dose: 650 mg Acetaminophen/Butalbital/Caffeine (Fioricet 325-50-40 Mg) 1 tab PO Q6H PRN PRN Reason: Headache Last Admin: 01/10/17 00:09 Dose: 1 tab Albuterol/Ipratropium (Duoneb 3.0-0.5 Mg/3 Ml) 3 ml NEB Q4H PRN PRN Reason: Shortness Of Breath/wheezing Last Admin: 01/12/17 08:08 Dose: 3 ml Benzocaine/Menthol (Cepacol Sore Throat) 1 lozenge MUCMEM Q4H PRN PRN Reason: Sore Throat Last Admin: 01/09/17 08:48 Dose: 1 lozenge Benzonatate (Tessalon Perles) 100 mg PO TID PRN PRN Reason: Cough Last Admin: 01/11/17 20:07 Dose: 100 mg Bisacodyl (Dulcolax) 5 mg PO DAILY PRN PRN Reason: Constipation Docusate Sodium (Colace) 100 mg PO BID PRN PRN Reason: Constipation Guaifenesin (Mucinex) 1,200 mg PO BID [facility] Last Admin: 01/12/17 09:07 Dose: 1,200 mg Guaifenesin/Phenylephrine HCl (Robitussin Dm) 10 ml PO Q4H PRN PRN Reason: Cough Last Admin: 01/11/17 20:07 Dose: 10 ml Hydralazine HCl (Apresoline) 20 mg IVPUSH Q4H PRN PRN Reason: Hypertension Hydromorphone HCl (Dilaudid) 1 mg IVPUSH Q3H PRN PRN Reason: Pain (severe 7-10) Promethazine HCl 12.5 mg/ (Sodium Chloride) 50.5 mls @ 100 mls/hr IV Q6H PRN PRN Reason: Nausea/Vomiting Levofloxacin/Dextrose 750 mg/ (Premix) 150 mls @ 100 mls/hr IV Q24H [facility] Last Admin: 01/11/17 20:47 Dose: 100 mls/hr Levothyroxine Sodium (Synthroid) 100 mcg PO DAILY [facility] Last Admin: 01/12/17 09:06 Dose: 100 mcg Loratadine (Claritin) 10 mg PO BEDTIME [facility] Last Admin: 01/11/17 20:06 Dose: 10 mg Lorazepam (Ativan) 2 mg IVPUSH Q4H PRN PRN Reason: Seizures Lorazepam (Ativan) 1 mg IVPUSH Q3H PRN PRN Reason: dyspnea, anxiety Last Admin: 01/11/17 22:23 Dose: 1 mg Magnesium Hydroxide (Milk Of Magnesia) 30 ml PO Q12H PRN PRN Reason: Constipation Magnesium Sulfate (Pharmacy To Dose - Magnesium Replacement) 1 dose .XX ASDIRECTED [facility] Methylprednisolone Sodium Succinate (Solu-Medrol) 40 mg IVPUSH DAILY [facility] Last Admin: 01/12/17 09:15 Dose: 40 mg Metoprolol Tartrate (Lopressor) 5 mg IVPUSH Q4H PRN PRN Reason: Tachycardia Morphine Sulfate (Morphine) 1 mg IVPUSH Q4H PRN PRN Reason: Dyspnea Last Admin: 01/10/17 19:13 Dose: 1 mg Multivitamins (Thera) 1 each PO DAILY [facility] Last Admin: 01/12/17 09:07 Dose: 1 each Non-Formulary Medication (Ubidecarenone) 100 mg PO DAILY [facility] Last Admin: 01/12/17 09:36 Dose: Not Given Ondansetron HCl (Zofran) 4 mg IV Q6H PRN PRN Reason: Nausea/Vomiting Oxycodone HCl (Oxycodone) 5 mg PO Q4H PRN PRN Reason: Pain (moderate 4-6) Last Admin: 01/11/17 20:07 Dose: 5 mg Pantoprazole Sodium (Protonix Iv) 40 mg IV Q12HR [facility] Last Admin: 01/12/17 09:09 Dose: 40 mg Polyethylene Glycol (Miralax) 17 gm PO DAILY PRN PRN Reason: Constipation Potassium Chloride (Pharmacy To Dose - Potassium Replacement) 1 dose .XX ASDIRECTED [facility] Pyridoxine HCl (Vitamin B6-Pyridoxine) 100 mg PO BID [facility] Last Admin: 01/12/17 09:05 Dose: 100 mg Senna/Docusate Sodium (Senna Plus) 1 tab PO BID PRN PRN Reason: Constipation Sodium Chloride (Saline Flush) 10 ml FLUSH ASDIRECTED PRN PRN Reason: Keep Vein Open Last Admin: 01/08/17 17:47 Dose: 10 ml Temazepam (Restoril) 15 mg PO BEDTIME PRN PRN Reason: Sleep Last Admin: 01/10/17 23:22 Dose: 15 mg Thiamine HCl (Vitamin B-1) 100 mg PO BEDTIME [facility] Last Admin: 01/11/17 20:06 Dose: 100 mg Tramadol HCl (Ultram) 50 mg PO DAILY PRN PRN Reason: Pain Discontinued Medications Albuterol (Proventil Neb Soln) 2.5 mg NEB ONETIME ONE Stop: 01/08/17 17:02 Last Admin: 01/08/17 17:09 Dose: 2.5 mg Albuterol (Proventil Neb Soln) 2.5 mg NEB ONETIME ONE Stop: 01/08/17 18:32 Last Admin: 01/08/17 18:36 Dose: 2.5 mg Albuterol (Proventil Neb Soln) 2.5 mg NEB ONETIME ONE Stop: 01/08/17 18:33 Last Admin: 01/08/17 18:36 Dose: 2.5 mg Albuterol/Ipratropium (Duoneb 3.0-0.5 Mg/3 Ml) 3 ml NEB ONETIME ONE Stop: 01/08/17 18:18 Last Admin: 01/08/17 18:28 Dose: 3 ml Aspirin (Halfprin) 81 mg PO DAILY [facility] Last Admin: 01/09/17 09:02 Dose: Not Given Hydrocortisone Sodium Succinate (Solu-Cortef) 100 mg IVPUSH Q6H [facility] Last Admin: 01/10/17 14:00 Dose: 100 mg Sodium Chloride (Normal Saline) 500 mls @ 999 mls/hr IV ONETIME ONE Stop: 01/08/17 17:31 Last Admin: 01/08/17 17:08 Dose: 999 mls/hr Levofloxacin/Dextrose 500 mg/ (Premix) 100 mls @ 100 mls/hr IV ONETIME ONE Stop: 01/08/17 18:21 Last Admin: 01/08/17 18:25 Dose: 100 mls/hr Sodium Chloride (Normal Saline) Confirm Administered Dose 1,000 mls @ as directed .ROUTE .STK-MED ONE Stop: 01/08/17 18:24 Last Admin: 01/08/17 18:44 Dose: Not Given Sodium Chloride (Normal Saline) 1,000 mls @ 999 mls/hr IV ONETIME ONE Stop: 01/08/17 19:43 Last Admin: 01/08/17 18:20 Dose: 999 mls/hr Magnesium Sulfate 2 gm/ Premix 50 mls @ 25 mls/hr IV ONETIME ONE Stop: 01/08/17 21:10 Last Admin: 01/08/17 19:19 Dose: 25 mls/hr Lactated Ringer's (Ringers, Lactated) 1,000 mls @ 999 mls/hr IV ASDIRECTED [facility] Last Admin: 01/08/17 23:36 Dose: 999 mls/hr Levofloxacin/Dextrose 750 mg/ (Premix) 150 mls @ 100 mls/hr IV Q48H [facility] Last Admin: 01/10/17 09:18 Dose: 100 mls/hr Levofloxacin/Dextrose 750 mg/ (Premix) 150 mls @ 100 mls/hr IV ONETIME ONE Stop: 01/08/17 21:55 Last Admin: 01/08/17 23:40 Dose: Not Given Meropenem 1 gm/ Sodium (Chloride) 100 mls @ 200 mls/hr IV Q8H [facility] Last Admin: 01/09/17 04:03 Dose: 200 mls/hr Vancomycin HCl 1 gm/ Sodium (Chloride) 250 mls @ 250 mls/hr IV Q24H [facility] Last Admin: 01/08/17 22:17 Dose: 250 mls/hr Sodium Chloride (Normal Saline) 1,000 mls @ 250 mls/hr IV ASDIRECTED [facility] Last Admin: 01/10/17 04:04 Dose: 250 mls/hr Meropenem 500 mg/ Sodium (Chloride) 100 mls @ 200 mls/hr IV Q8H [facility] Last Admin: 01/11/17 20:06 Dose: 100 mls/hr Vancomycin HCl 1.25 gm/ Sodium (Chloride) 250 mls @ 250 mls/hr IV Q24H [facility] Last Admin: 01/10/17 22:12 Dose: 250 mls/hr Thiamine HCl 100 mg/ Sodium (Chloride) 101 mls @ 202 mls/hr IV ONETIME ONE Stop: 01/09/17 19:34 Last Admin: 01/09/17 20:27 Dose: 202 mls/hr Lorazepam (Ativan) 0.5 mg IVPUSH ONETIME ONE Stop: 01/08/17 17:11 Last Admin: 01/08/17 17:15 Dose: 0.5 mg Lorazepam (Ativan) 1 mg IV Q6H PRN PRN Reason: Anxiety Last Admin: 01/08/17 22:21 Dose: 1 mg Magnesium Sulfate (Magnesium Sulfate 50%) 2 gm IV ONETIME ONE Stop: 01/08/17 19:01 Methylprednisolone Sodium Succinate (Solu-Medrol) 125 mg IVPUSH ONETIME ONE Stop: 01/08/17 18:32 Last Admin: 01/08/17 18:35 Dose: 125 mg Methylprednisolone Sodium Succinate (Solu-Medrol) 60 mg IVPUSH Q12H [facility] Stop: 01/11/17 21:00 Last Admin: 01/11/17 20:08 Dose: 60 mg Multivitamins/Minerals (Cerovite Advanced Formula Tablet) 1 tab PO BEDTIME [facility] Last Admin: 01/09/17 22:08 Dose: Not Given Potassium Chloride (Klor-Con M20) 40 meq PO ONETIME ONE Stop: 01/10/17 12:32 Last Admin: 01/10/17 13:08 Dose: 40 meq Potassium Chloride (Klor-Con M20) 20 meq PO Q3H [facility] Stop: 01/11/17 15:31 Last Admin: 01/11/17 16:22 Dose: 20 meq Vancomycin HCl (Vancomycin) 1 mg IV Q12H [facility] Vancomycin HCl (Pharmacy To Dose - Vancomycin) 0 dose .XX ASDIRECTED PRN PRN Reason: RX TO DOSE IV VANCOMYCIN - Exam General: Alert, Oriented Neck: Supple Lungs: Decreased Breath Sounds Cardiovascular: Regular Rate, Regular Rhythm (Female) Exam: Deferred Extremities: Normal Inspection Skin: Warm, Dry, Intact Neurological: No New Focal Deficit Psy/Mental Status: Alert, Normal Affect, Normal Mood - Problem List & Annotations (1) Hypoxemia SNOMED Code(s): 376298574 Code(s): R09.02 - HYPOXEMIA Status: Acute (2) Pneumonia SNOMED Code(s): 302448916 Code(s): J18.9 - PNEUMONIA, UNSPECIFIED ORGANISM Status: Acute QualifierTitle: Pneumonia type: due to unspecified organism Laterality: right Lung location: lower lobe of lung Qualified Code(s): J18.1 - Lobar pneumonia, unspecified organism (3) Respiratory distress SNOMED Code(s): 277540724 Code(s): R06.00 - DYSPNEA, UNSPECIFIED Status: Acute (4) Septicemia SNOMED Code(s): 378063786 Code(s): A41.9 - SEPSIS, UNSPECIFIED ORGANISM Status: Acute (5) Hiatal hernia with GERD and esophagitis SNOMED Code(s): 778397104 Code(s): K44.9 - DIAPHRAGMATIC HERNIA WITHOUT OBSTRUCTION OR GANGRENE; K21.0 - GASTRO-ESOPHAGEAL REFLUX DISEASE WITH ESOPHAGITIS Status: Chronic Priority : Medium - Problem List Review Problem List Initiated/Reviewed/Updated: Yes - Assessment Assessment:: Assessment: Patient is a 61 yo cau[place] female that was brought to the emergency department with an onset of shortness of breath. The patient was believed to have developed a right lower lobe pneumonia. The patient is into her 5th hospital day. She denies any pain, chills or fever. She still reports a cough, but with much improvement. Her WBC has improved from a 19.1 to within normal range of 5.4. Patient still has thrombocytopenia at 47, but does not have any signs of petechia or hemorrhage. Liver enzymes and C-reactive protein are steadily decreasing. Albumin levels are remaining constant. Respiratory exam show decreased breath sounds throughout, but most remarkable in right lower quadrant. Gram stain revealed a mixture of gram positive rods and cocci and culture was unremarkable with normal respiratory katie after 2 days of growth. Respiratory panel was negative. Plan: Continue routine labs Monitor platelet levels Continue levofloxacin treatment If platelets start to improve possible movement from ICU to med floor. - Plan Plan:: Assessment/Plan: <Grady Fernandes T - Last Filed: 01/12/17 21:04> - Review of Systems Systems Review Comment:: Patient was discharged today. - Patient Data Vitals - Most Recent: Last Vital Signs Temp 36.4 C 01/12/17 15:00 Pulse 90 01/12/17 15:00 Resp 20 01/12/17 15:00 BP 141/87 H 01/12/17 15:00 Pulse Ox 93 L 01/12/17 15:00 I&O - Last 24 Hours: Intake & Output 01/12/17 01/12/17 01/12/17 06:59 14:59 22:59 Intake Total 950 1600 Output Total 800 200 Balance 150 1400 Lab Results Last 24 Hours: Laboratory Results - last 24 hr 01/12/17 01/12/17 Range/Units 05:41 05:41 WBC 5.41 (3.98-10.04) K/mm3 RBC 3.46 L (3.98-5.22) M/mm3 Hgb 10.6 L (11.2-15.7) gm/L Hct 31.7 L (34.1-44.9) % MCV 91.6 (79.4-94.8) fl MCH 30.6 (25.6-32.2) pg MCHC 33.4 (32.2-35.5) g/dl RDW Std Deviation 43.5 (36.4-46.3) fL Plt Count 47 L (182-369) K/mm3 MPV 11.9 (9.4-12.3) fl Neut % (Auto) 64.9 (34.0-71.1) % Lymph % (Auto) 26.8 (19.3-51.7) % Stephenson % (Auto) 5.4 (4.7-12.5) % Eos % (Auto) 0.2 L (0.7-5.8) Baso % (Auto) 0.7 (0.1-1.2) % Neut # (Auto) 3.51 (1.56-6.13) K/mm3 Lymph # (Auto) 1.45 (1.18-3.74) K/mm3 Stephenson # (Auto) 0.29 (0.24-0.36) K/mm3 Eos # (Auto) 0.01 L (0.04-0.36) K/mm3 Baso # (Auto) 0.04 (0.01-0.08) K/mm3 Manual Slide Review Abnormal smear Sodium 142 (136-145) mEq/L Potassium 3.9 (3.5-5.1) mEq/L Chloride 109 H (98-107) mEq/L Carbon Dioxide 23 (21-32) mEq/L Anion Gap 13.9 (5-15) BUN 14 (7-18) mg/dL Creatinine 0.6 (0.55-1.02) mg/dL Est Cr Clr Drug Dosing 82.48 mL/min Estimated GFR (MDRD) > 60 (>60) mL/min BUN/Creatinine Ratio 23.3 H (14-18) Glucose 147 H (74-106) mg/dL Calcium 8.4 L (8.5-10.1) mg/dL Magnesium 2.2 (1.8-2.4) mg/dl Total Bilirubin 0.5 (0.2-1.0) mg/dL AST 55 H (15-37) U/L ALT 121 H (14-59) U/L Alkaline Phosphatase 125 H (46-116) U/L C-Reactive Protein 2.4 H* (<1.0) mg/dL Total Protein 5.7 L (6.4-8.2) g/dl Albumin 2.5 L (3.4-5.0) g/dl Globulin 3.2 gm/dL Albumin/Globulin Ratio 0.8 L (1-2) Med Orders - Current: Current Medications Discontinued Medications Acetaminophen (Tylenol) 650 mg PO Q4H PRN PRN Reason: Pain (Mild 1-3)/fever Last Admin: 01/11/17 17:31 Dose: 650 mg Acetaminophen/Butalbital/Caffeine (Fioricet 325-50-40 Mg) 1 tab PO Q6H PRN PRN Reason: Headache Last Admin: 01/10/17 00:09 Dose: 1 tab Albuterol (Proventil Neb Soln) 2.5 mg NEB ONETIME ONE Stop: 01/08/17 17:02 Last Admin: 01/08/17 17:09 Dose: 2.5 mg Albuterol (Proventil Neb Soln) 2.5 mg NEB ONETIME ONE Stop: 01/08/17 18:32 Last Admin: 01/08/17 18:36 Dose: 2.5 mg Albuterol (Proventil Neb Soln) 2.5 mg NEB ONETIME ONE Stop: 01/08/17 18:33 Last Admin: 01/08/17 18:36 Dose: 2.5 mg Albuterol/Ipratropium (Duoneb 3.0-0.5 Mg/3 Ml) 3 ml NEB ONETIME ONE Stop: 01/08/17 18:18 Last Admin: 01/08/17 18:28 Dose: 3 ml Albuterol/Ipratropium (Duoneb 3.0-0.5 Mg/3 Ml) 3 ml NEB Q4H PRN PRN Reason: Shortness Of Breath/wheezing Last Admin: 01/12/17 13:21 Dose: 3 ml Aspirin (Halfprin) 81 mg PO DAILY [facility] Last Admin: 01/09/17 09:02 Dose: Not Given Benzocaine/Menthol (Cepacol Sore Throat) 1 lozenge MUCMEM Q4H PRN PRN Reason: Sore Throat Last Admin: 01/09/17 08:48 Dose: 1 lozenge Benzonatate (Tessalon Perles) 100 mg PO TID PRN PRN Reason: Cough Last Admin: 01/11/17 20:07 Dose: 100 mg Bisacodyl (Dulcolax) 5 mg PO DAILY PRN PRN Reason: Constipation Docusate Sodium (Colace) 100 mg PO BID PRN PRN Reason: Constipation Guaifenesin (Mucinex) 1,200 mg PO BID [facility] Last Admin: 01/12/17 09:07 Dose: 1,200 mg Guaifenesin/Phenylephrine HCl (Robitussin Dm) 10 ml PO Q4H PRN PRN Reason: Cough Last Admin: 01/11/17 20:07 Dose: 10 ml Hydralazine HCl (Apresoline) 20 mg IVPUSH Q4H PRN PRN Reason: Hypertension Hydrocortisone Sodium Succinate (Solu-Cortef) 100 mg IVPUSH Q6H [facility] Last Admin: 01/10/17 14:00 Dose: 100 mg Hydromorphone HCl (Dilaudid) 1 mg IVPUSH Q3H PRN PRN Reason: Pain (severe 7-10) Sodium Chloride (Normal Saline) 500 mls @ 999 mls/hr IV ONETIME ONE Stop: 01/08/17 17:31 Last Admin: 01/08/17 17:08 Dose: 999 mls/hr Levofloxacin/Dextrose 500 mg/ (Premix) 100 mls @ 100 mls/hr IV ONETIME ONE Stop: 01/08/17 18:21 Last Admin: 01/08/17 18:25 Dose: 100 mls/hr Sodium Chloride (Normal Saline) Confirm Administered Dose 1,000 mls @ as directed .ROUTE .STK-MED ONE Stop: 01/08/17 18:24 Last Admin: 01/08/17 18:44 Dose: Not Given Sodium Chloride (Normal Saline) 1,000 mls @ 999 mls/hr IV ONETIME ONE Stop: 01/08/17 19:43 Last Admin: 01/08/17 18:20 Dose: 999 mls/hr Magnesium Sulfate 2 gm/ Premix 50 mls @ 25 mls/hr IV ONETIME ONE Stop: 01/08/17 21:10 Last Admin: 01/08/17 19:19 Dose: 25 mls/hr Lactated Ringer's (Ringers, Lactated) 1,000 mls @ 999 mls/hr IV ASDIRECTED [facility] Last Admin: 01/08/17 23:36 Dose: 999 mls/hr Promethazine HCl 12.5 mg/ (Sodium Chloride) 50.5 mls @ 100 mls/hr IV Q6H PRN PRN Reason: Nausea/Vomiting Levofloxacin/Dextrose 750 mg/ (Premix) 150 mls @ 100 mls/hr IV Q48H [facility] Last Admin: 01/10/17 09:18 Dose: 100 mls/hr Levofloxacin/Dextrose 750 mg/ (Premix) 150 mls @ 100 mls/hr IV ONETIME ONE Stop: 01/08/17 21:55 Last Admin: 01/08/17 23:40 Dose: Not Given Meropenem 1 gm/ Sodium (Chloride) 100 mls @ 200 mls/hr IV Q8H [facility] Last Admin: 01/09/17 04:03 Dose: 200 mls/hr Vancomycin HCl 1 gm/ Sodium (Chloride) 250 mls @ 250 mls/hr IV Q24H [facility] Last Admin: 01/08/17 22:17 Dose: 250 mls/hr Sodium Chloride (Normal Saline) 1,000 mls @ 250 mls/hr IV ASDIRECTED [facility] Last Admin: 01/10/17 04:04 Dose: 250 mls/hr Meropenem 500 mg/ Sodium (Chloride) 100 mls @ 200 mls/hr IV Q8H [facility] Last Admin: 01/11/17 20:06 Dose: 100 mls/hr Vancomycin HCl 1.25 gm/ Sodium (Chloride) 250 mls @ 250 mls/hr IV Q24H [facility] Last Admin: 01/10/17 22:12 Dose: 250 mls/hr Thiamine HCl 100 mg/ Sodium (Chloride) 101 mls @ 202 mls/hr IV ONETIME ONE Stop: 01/09/17 19:34 Last Admin: 01/09/17 20:27 Dose: 202 mls/hr Levofloxacin/Dextrose 750 mg/ (Premix) 150 mls @ 100 mls/hr IV Q24H [facility] Last Admin: 01/11/17 20:47 Dose: 100 mls/hr Levothyroxine Sodium (Synthroid) 100 mcg PO DAILY [facility] Last Admin: 01/12/17 09:06 Dose: 100 mcg Loratadine (Claritin) 10 mg PO BEDTIME [facility] Last Admin: 01/11/17 20:06 Dose: 10 mg Lorazepam (Ativan) 0.5 mg IVPUSH ONETIME ONE Stop: 01/08/17 17:11 Last Admin: 01/08/17 17:15 Dose: 0.5 mg Lorazepam (Ativan) 1 mg IV Q6H PRN PRN Reason: Anxiety Last Admin: 01/08/17 22:21 Dose: 1 mg Lorazepam (Ativan) 2 mg IVPUSH Q4H PRN PRN Reason: Seizures Lorazepam (Ativan) 1 mg IVPUSH Q3H PRN PRN Reason: dyspnea, anxiety Last Admin: 01/12/17 15:41 Dose: 1 mg Magnesium Hydroxide (Milk Of Magnesia) 30 ml PO Q12H PRN PRN Reason: Constipation Magnesium Sulfate (Magnesium Sulfate 50%) 2 gm IV ONETIME ONE Stop: 01/08/17 19:01 Magnesium Sulfate (Pharmacy To Dose - Magnesium Replacement) 1 dose .XX ASDIRECTED [facility] Methylprednisolone Sodium Succinate (Solu-Medrol) 125 mg IVPUSH ONETIME ONE Stop: 01/08/17 18:32 Last Admin: 01/08/17 18:35 Dose: 125 mg Methylprednisolone Sodium Succinate (Solu-Medrol) 60 mg IVPUSH Q12H [facility] Stop: 01/11/17 21:00 Last Admin: 01/11/17 20:08 Dose: 60 mg Methylprednisolone Sodium Succinate (Solu-Medrol) 40 mg IVPUSH DAILY [facility] Last Admin: 01/12/17 09:15 Dose: 40 mg Metoprolol Tartrate (Lopressor) 5 mg IVPUSH Q4H PRN PRN Reason: Tachycardia Morphine Sulfate (Morphine) 1 mg IVPUSH Q4H PRN PRN Reason: Dyspnea Last Admin: 01/10/17 19:13 Dose: 1 mg Multivitamins (Thera) 1 each PO DAILY [facility] Last Admin: 01/12/17 09:07 Dose: 1 each Multivitamins/Minerals (Cerovite Advanced Formula Tablet) 1 tab PO BEDTIME [facility] Last Admin: 01/09/17 22:08 Dose: Not Given Non-Formulary Medication (Ubidecarenone) 100 mg PO DAILY [facility] Last Admin: 01/12/17 09:36 Dose: Not Given Ondansetron HCl (Zofran) 4 mg IV Q6H PRN PRN Reason: Nausea/Vomiting Oxycodone HCl (Oxycodone) 5 mg PO Q4H PRN PRN Reason: Pain (moderate 4-6) Last Admin: 01/11/17 20:07 Dose: 5 mg Pantoprazole Sodium (Protonix Iv) 40 mg IV Q12HR [facility] Last Admin: 01/12/17 09:09 Dose: 40 mg Pantoprazole Sodium (Protonix) 40 mg PO DAILY [facility] Polyethylene Glycol (Miralax) 17 gm PO DAILY PRN PRN Reason: Constipation Potassium Chloride (Klor-Con M20) 40 meq PO ONETIME ONE Stop: 01/10/17 12:32 Last Admin: 01/10/17 13:08 Dose: 40 meq Potassium Chloride (Pharmacy To Dose - Potassium Replacement) 1 dose .XX ASDIRECTED [facility] Potassium Chloride (Klor-Con M20) 20 meq PO Q3H [facility] Stop: 01/11/17 15:31 Last Admin: 01/11/17 16:22 Dose: 20 meq Pyridoxine HCl (Vitamin B6-Pyridoxine) 100 mg PO BID [facility] Last Admin: 01/12/17 09:05 Dose: 100 mg Senna/Docusate Sodium (Senna Plus) 1 tab PO BID PRN PRN Reason: Constipation Sodium Chloride (Saline Flush) 10 ml FLUSH ASDIRECTED PRN PRN Reason: Keep Vein Open Last Admin: 01/08/17 17:47 Dose: 10 ml Temazepam (Restoril) 15 mg PO BEDTIME PRN PRN Reason: Sleep Last Admin: 01/10/17 23:22 Dose: 15 mg Thiamine HCl (Vitamin B-1) 100 mg PO BEDTIME [facility] Last Admin: 01/11/17 20:06 Dose: 100 mg Tramadol HCl (Ultram) 50 mg PO DAILY PRN PRN Reason: Pain Last Admin: 01/12/17 11:01 Dose: 50 mg Vancomycin HCl (Vancomycin) 1 mg IV Q12H [facility] Vancomycin HCl (Pharmacy To Dose - Vancomycin) 0 dose .XX ASDIRECTED PRN PRN Reason: RX TO DOSE IV VANCOMYCIN - Exam Physical Findings Comments:: Patient was discharged today. - Problem List & Annotations (1) Sepsis with hypotension SNOMED Code(s): 61526967 Code(s): A41.9 - SEPSIS, UNSPECIFIED ORGANISM Status: Resolved (2) Transaminitis SNOMED Code(s): 824448382 Code(s): R74.0 - NONSPEC ELEV OF LEVELS OF TRANSAMNS & LACTIC ACID DEHYDRGNSE Status: Acute (3) Thrombocytopenia SNOMED Code(s): 990574606 Code(s): D69.6 - THROMBOCYTOPENIA, UNSPECIFIED Status: Acute (4) Acute respiratory failure SNOMED Code(s): 04449212 Code(s): J96.00 - ACUTE RESPIRATORY FAILURE, UNSP W HYPOXIA OR HYPERCAPNIA Status: Resolved Qualifiers: Respiratory failure complication: hypoxia Qualified Code(s): J96.01 - Acute respiratory failure with hypoxia (5) Elevated d-dimer SNOMED Code(s): 587866979 Code(s): R79.89 - OTHER SPECIFIED ABNORMAL FINDINGS OF BLOOD CHEMISTRY Status: Resolved (6) Acute renal failure (ARF) SNOMED Code(s): 22813342 Code(s): N17.9 - ACUTE KIDNEY FAILURE, UNSPECIFIED Status: Resolved Qualifiers: Acute renal failure type: unspecified Qualified Code(s): N17.9 - Acute kidney failure, unspecified (7) Lactic acid acidosis SNOMED Code(s): 24062044 Code(s): E87.2 - ACIDOSIS Status: Resolved (8) Leukocytosis SNOMED Code(s): 858886579, 448428763 Code(s): D72.829 - ELEVATED WHITE BLOOD CELL COUNT, UNSPECIFIED Status: Resolved Qualifiers: Leukocytosis type: unspecified Qualified Code(s): D72.829 - Elevated white blood cell count, unspecified (9) Nonspecific syndrome suggestive of viral illness SNOMED Code(s): 849816526 Code(s): B34.9 - VIRAL INFECTION, UNSPECIFIED Status: Resolved - My Orders Last 24 Hours: My Active Orders 01/12/17 11:19 Consult to Speech Language Pathology [[employer] OPERATOR Evaluation and Treatment] [CONS] Routine 01/12/17 12:55 Ready for Discharge [RC] PER UNIT ROUTINE - Plan Plan:: Patient was discharged today.
--- NOTE | 2017-01-12 13:01 | PCM.DCSUM1 ---
Discharge Summary - Hospital Course Brief History: This is a 61 year old white female with past medical history of impaired vision, allergic rhinitis, hyperlipidemia, asthma, dysphagia, osteoarthritis, chronic keep pain, scoliosis, hypothyroidism, and DM2 who presents to the emergency department with sudden onset of shortness of breath along with diaphoresis and was admitted for sepsis secondary to probable pneumonia. - Discharge Data Discharge Date: 01/12/17 Discharge Disposition: Home, Self-Care 01 Condition: Good - Discharge Diagnosis/Problem(s) (1) Sepsis with hypotension SNOMED Code(s): 70742214 ICD Code: A41.9 - SEPSIS, UNSPECIFIED ORGANISM Status: Resolved (2) Transaminitis SNOMED Code(s): 931919525 ICD Code: R74.0 - NONSPEC ELEV OF LEVELS OF TRANSAMNS & LACTIC ACID DEHYDRGNSE Status: Acute (3) Thrombocytopenia SNOMED Code(s): 944789290 ICD Code: D69.6 - THROMBOCYTOPENIA, UNSPECIFIED Status: Acute (4) Acute respiratory failure SNOMED Code(s): 45995219 ICD Code: J96.00 - ACUTE RESPIRATORY FAILURE, UNSP W HYPOXIA OR HYPERCAPNIA Status: Resolved Qualifiers: Respiratory failure complication: hypoxia Qualified Code(s): J96.01 - Acute respiratory failure with hypoxia (5) Elevated d-dimer SNOMED Code(s): 258918856 ICD Code: R79.89 - OTHER SPECIFIED ABNORMAL FINDINGS OF BLOOD CHEMISTRY Status: Resolved (6) Acute renal failure (ARF) SNOMED Code(s): 02310134 ICD Code: N17.9 - ACUTE KIDNEY FAILURE, UNSPECIFIED Status: Resolved Qualifiers: Acute renal failure type: unspecified Qualified Code(s): N17.9 - Acute kidney failure, unspecified (7) Lactic acid acidosis SNOMED Code(s): 79251299 ICD Code: E87.2 - ACIDOSIS Status: Resolved (8) Leukocytosis SNOMED Code(s): 332797750, 734253209 ICD Code: D72.829 - ELEVATED WHITE BLOOD CELL COUNT, UNSPECIFIED Status: Resolved Qualifiers: Leukocytosis type: unspecified Qualified Code(s): D72.829 - Elevated white blood cell count, unspecified (9) Nonspecific syndrome suggestive of viral illness SNOMED Code(s): 450013567 ICD Code: B34.9 - VIRAL INFECTION, UNSPECIFIED Status: Resolved - Patient Summary/Data Operative Procedure(s) Performed: None Complications: None Consults: Consultations 01/08/17 20:22 Consult to Case Management [CONS] Routine Consult to Jewelry Technician [CONS] Routine Consult to Spiritual Care [CONS] Routine OT Evaluation and Treatment [CONS] Routine PT Evaluation and Treatment [CONS] Routine Respiratory Care Assess and Treatment [CONS] Routine 01/12/17 11:19 Consult to Speech Language Pathology [COOKING [employer]ING [employer]YING SUPERVISOR Evaluation and Treatment] [CONS] Routine Labs Pending at D/C: None Recommended Follow-up Testing/Procedures: CMP in 1 week and Outpatient PFT Hospital Course: Patient was primarily admitted for sepsis which we felt secondary to probable pneumonia. She carried a past medical history of asthma and dysphagia. On presentation to the emergency department, patient reported shortness of breath and went on to develop respiratory distress that led to her use of more advanced airway to maintain respiration. Her breathing improved and from there she was put on sepsis protocol and supportive care. All diagnostic work up yielded no significant results. Her mycoplasma, strep pneumonia, [place], blood culture 2, urinalysis culture, nasal swab, throat culture, and influenza screening were all negative. At that point, we felt the patient had acute viral illness. We ordered hepatitis panel due to her elevated liver enzymes with pending results. Patient received adequate fluids, prn medications, and triple dose of antibiotics. With that regimen, she slowly improved clinically. Patient had done well since admission. The rest of her chronic medical illness remained stable. She was clinically and hemodynamically stable. The patient was advised to have a repeat CMP in 1 week and to get an outpatient PFT/Spirometry to assess her underlying reactive airway disease. She was further advised to come back or seek immediate care should her symptoms persist or get worse. The patient expressed understanding and in agreement with the plans as discussed above. All questions were answered. Her PCP Ramona Yanez PA-C were called a few times but w/o any success to discuss discharge care plan. - Patient Instructions Diet: Usual Diet as Tolerated Activity: As Tolerated Driving: Do Not Drive Showering/Bathing: May Shower Notify Provider of: Fever, Increased Pain, Nausea and/or Vomiting Other/Special Instructions: - Please take all medications as directed. - Resume all home medications. - Recommend you get PFT outpatient through your family doctor. - Recommend repeat CMP in 1 week through your family doctor. - Resume daily routine activity as tolerated. - You may return to work in 3 days 01/14/2017. - Call or follow up with you doctor if you have any further questions or concerns right after discharge - Discharge Plan Prescriptions/Med Rec: Albuterol [Proventil HFA] 200 puff INH Q4H PRN #1 inhaler PRN Reason: Shortness Of Breath Albuterol [IJD: Albuterol] 2.5 mg NEB BID #25 ml Home Medications: Home Meds Aspirin [Ecotrin] 81 mg PO DAILY 10/14/16 [History] Cetirizine [ZyrTEC] 10 mg PO BEDTIME 10/14/16 [History] Fish Oil/[place]-3 Fatty Acids [Fish Oil 1,000 MG] 1,000 mg PO DAILY 10/14/16 [ History] Flaxseed Oil [Flax Oil] 1,000 mg PO DAILY 10/14/16 [History] Gluc 2KCl/Chondr/Bere Hy/Hy Ac [Glucosamine & Chondroitin Cap] 1 cap PO BID [History] Levothyroxine [Synthroid] 100 mcg PO DAILY 10/14/16 [History] Meloxicam 15 mg PO QPM 10/14/16 [History] Multivitamin [Flintstones] 1 tab PO DAILY 10/14/16 [History] Pyridoxine HCl [Vitamin B-6] 100 mg PO BID 10/14/16 [History] Rosuvastatin Calcium 5 mg PO DAILY 10/14/16 [History] Ubidecarenone [Coq-10] 100 mg PO DAILY 10/14/16 [History] traMADol [Ultram] 50 mg PO DAILY PRN 10/14/16 [History] metFORMIN HCl [Metformin HCl ER] 750 mg PO QPM 10/15/16 [History] Albuterol [IJD: Albuterol] 2.5 mg NEB BID #25 ml 01/12/17 [Rx] Albuterol [Proventil HFA] 200 puff INH Q4H PRN #1 inhaler 01/12/17 [Rx] Patient Handouts: Sepsis, Adult, Asthma, Adult, [id number], Acute Respiratory Failure Referrals: Ramona Yanez PA [Primary Care Provider] - 01/19/17 12:00 pm (A follow up appointment with your primary has been made for you one week from your discharge date. Please arrive 15 minutes prior to appointment. Call [phone] if you need to reschedule. ) - Discharge Summary/Plan Comment DC Time >30 min.: Yes (45 mins) Discharge Summary/Plan Comment: Discharge to Home - General Info Date of Service: 01/12/17 Admission Dx/Problem (Free Text: Sepsis Subjective Update: Follow Up Functional Status: Reports: Pain Controlled, Tolerating Diet, Ambulating, Urinating. Denies: New Symptoms - Review of Systems General: Denies: Fever, Weakness, Chills HEENT: Reports: No Symptoms Pulmonary: Reports: Cough. Denies: Shortness of Breath Cardiovascular: Denies: Chest Pain, Palpitations, Dyspnea on Exertion, Lightheadedness Gastrointestinal: Denies: Abdominal Pain, Nausea, Vomiting Genitourinary: Reports: No Symptoms Musculoskeletal: Reports: No Symptoms Skin: Denies: Cyanosis, Jaundice, Mottled, Pallor, Diaphoresis, Rash Neurological: Denies: Confusion, Dizziness, Headache, Difficulty Walking, Weakness, Gait Disturbance Psychiatric: Denies: Depression, Mood Lability, Anxiety, Agitation, Cravings, Hallucinations Systems Review Comment: No overnight or acute issues. She looks clinically stable. She has no new complaints. - Patient Data Vitals - Most Recent: Last Vital Signs Temp 36.1 C 01/12/17 11:06 Pulse 72 01/12/17 12:00 Resp 20 01/12/17 12:00 BP 121/96 H 01/12/17 12:00 Pulse Ox 98 01/12/17 12:00 Weight - Most Recent: 85.411 kg I&O - Last 24 hours: Intake & Output 01/11/17 01/12/17 01/12/17 22:59 06:59 14:59 Intake Total 1700 950 800 Output Total 1000 800 200 Balance 700 150 600 Lab Results - Last 24 hrs: Laboratory Results - last 24 hr 01/12/17 01/12/17 Range/Units 05:41 05:41 WBC 5.41 (3.98-10.04) K/mm3 RBC 3.46 L (3.98-5.22) M/mm3 Hgb 10.6 L (11.2-15.7) gm/L Hct 31.7 L (34.1-44.9) % MCV 91.6 (79.4-94.8) fl MCH 30.6 (25.6-32.2) pg MCHC 33.4 (32.2-35.5) g/dl RDW Std Deviation 43.5 (36.4-46.3) fL Plt Count 47 L (182-369) K/mm3 MPV 11.9 (9.4-12.3) fl Neut % (Auto) 64.9 (34.0-71.1) % Lymph % (Auto) 26.8 (19.3-51.7) % [place] % (Auto) 5.4 (4.7-12.5) % Eos % (Auto) 0.2 L (0.7-5.8) Baso % (Auto) 0.7 (0.1-1.2) % Neut # (Auto) 3.51 (1.56-6.13) K/mm3 Lymph # (Auto) 1.45 (1.18-3.74) K/mm3 [place] # (Auto) 0.29 (0.24-0.36) K/mm3 Eos # (Auto) 0.01 L (0.04-0.36) K/mm3 Baso # (Auto) 0.04 (0.01-0.08) K/mm3 Manual Slide Review Abnormal smear Sodium 142 (136-145) mEq/L Potassium 3.9 (3.5-5.1) mEq/L Chloride 109 H (98-107) mEq/L Carbon Dioxide 23 (21-32) mEq/L Anion Gap 13.9 (5-15) BUN 14 (7-18) mg/dL Creatinine 0.6 (0.55-1.02) mg/dL Est Cr Clr Drug Dosing 82.48 mL/min Estimated GFR (MDRD) > 60 (>60) mL/min BUN/Creatinine Ratio 23.3 H (14-18) Glucose 147 H (74-106) mg/dL Calcium 8.4 L (8.5-10.1) mg/dL Magnesium 2.2 (1.8-2.4) mg/dl Total Bilirubin 0.5 (0.2-1.0) mg/dL AST 55 H (15-37) U/L ALT 121 H (14-59) U/L Alkaline Phosphatase 125 H (46-116) U/L C-Reactive Protein 2.4 H* (<1.0) mg/dL Total Protein 5.7 L (6.4-8.2) g/dl Albumin 2.5 L (3.4-5.0) g/dl Globulin 3.2 gm/dL Albumin/Globulin Ratio 0.8 L (1-2) KENTRELL Results - Last 24 hrs: Microbiology 01/08/17 23:09 Urine Culture - Final Urine, Clean Catch NO GROWTH AFTER 2 DAYS 01/09/17 10:55 Gram Stain - Final Sputum - Expectorated Sputum Culture - Final NORMAL RESPIRATORY TRESA 2 DAYS Med Orders - Current: Current Medications Acetaminophen (Tylenol) 650 mg PO Q4H PRN PRN Reason: Pain (Mild 1-3)/fever Last Admin: 01/11/17 17:31 Dose: 650 mg Acetaminophen/Butalbital/Caffeine (Fioricet 325-50-40 Mg) 1 tab PO Q6H PRN PRN Reason: Headache Last Admin: 01/10/17 00:09 Dose: 1 tab Albuterol/Ipratropium (Duoneb 3.0-0.5 Mg/3 Ml) 3 ml NEB Q4H PRN PRN Reason: Shortness Of Breath/wheezing Last Admin: 01/12/17 08:08 Dose: 3 ml Benzocaine/Menthol (Cepacol Sore Throat) 1 lozenge MUCMEM Q4H PRN PRN Reason: Sore Throat Last Admin: 01/09/17 08:48 Dose: 1 lozenge Benzonatate (Tessalon Perles) 100 mg PO TID PRN PRN Reason: Cough Last Admin: 01/11/17 20:07 Dose: 100 mg Bisacodyl (Dulcolax) 5 mg PO DAILY PRN PRN Reason: Constipation Docusate Sodium (Colace) 100 mg PO BID PRN PRN Reason: Constipation Guaifenesin (Mucinex) 1,200 mg PO BID [facility] Last Admin: 01/12/17 09:07 Dose: 1,200 mg Guaifenesin/Phenylephrine HCl (Robitussin Dm) 10 ml PO Q4H PRN PRN Reason: Cough Last Admin: 01/11/17 20:07 Dose: 10 ml Hydralazine HCl (Apresoline) 20 mg IVPUSH Q4H PRN PRN Reason: Hypertension Hydromorphone HCl (Dilaudid) 1 mg IVPUSH Q3H PRN PRN Reason: Pain (severe 7-10) Promethazine HCl 12.5 mg/ (Sodium Chloride) 50.5 mls @ 100 mls/hr IV Q6H PRN PRN Reason: Nausea/Vomiting Levofloxacin/Dextrose 750 mg/ (Premix) 150 mls @ 100 mls/hr IV Q24H [facility] Last Admin: 01/11/17 20:47 Dose: 100 mls/hr Levothyroxine Sodium (Synthroid) 100 mcg PO DAILY [facility] Last Admin: 01/12/17 09:06 Dose: 100 mcg Loratadine (Claritin) 10 mg PO BEDTIME [facility] Last Admin: 01/11/17 20:06 Dose: 10 mg Lorazepam (Ativan) 2 mg IVPUSH Q4H PRN PRN Reason: Seizures Lorazepam (Ativan) 1 mg IVPUSH Q3H PRN PRN Reason: dyspnea, anxiety Last Admin: 01/11/17 22:23 Dose: 1 mg Magnesium Hydroxide (Milk Of Magnesia) 30 ml PO Q12H PRN PRN Reason: Constipation Magnesium Sulfate (Pharmacy To Dose - Magnesium Replacement) 1 dose .XX ASDIRECTED [facility] Methylprednisolone Sodium Succinate (Solu-Medrol) 40 mg IVPUSH DAILY [facility] Last Admin: 01/12/17 09:15 Dose: 40 mg Metoprolol Tartrate (Lopressor) 5 mg IVPUSH Q4H PRN PRN Reason: Tachycardia Morphine Sulfate (Morphine) 1 mg IVPUSH Q4H PRN PRN Reason: Dyspnea Last Admin: 01/10/17 19:13 Dose: 1 mg Multivitamins (Thera) 1 each PO DAILY [facility] Last Admin: 01/12/17 09:07 Dose: 1 each Non-Formulary Medication (Ubidecarenone) 100 mg PO DAILY [facility] Last Admin: 01/12/17 09:36 Dose: Not Given Ondansetron HCl (Zofran) 4 mg IV Q6H PRN PRN Reason: Nausea/Vomiting Oxycodone HCl (Oxycodone) 5 mg PO Q4H PRN PRN Reason: Pain (moderate 4-6) Last Admin: 01/11/17 20:07 Dose: 5 mg Pantoprazole Sodium (Protonix) 40 mg PO DAILY [facility] Polyethylene Glycol (Miralax) 17 gm PO DAILY PRN PRN Reason: Constipation Potassium Chloride (Pharmacy To Dose - Potassium Replacement) 1 dose .XX ASDIRECTED [facility] Pyridoxine HCl (Vitamin B6-Pyridoxine) 100 mg PO BID [facility] Last Admin: 01/12/17 09:05 Dose: 100 mg Senna/Docusate Sodium (Senna Plus) 1 tab PO BID PRN PRN Reason: Constipation Sodium Chloride (Saline Flush) 10 ml FLUSH ASDIRECTED PRN PRN Reason: Keep Vein Open Last Admin: 01/08/17 17:47 Dose: 10 ml Temazepam (Restoril) 15 mg PO BEDTIME PRN PRN Reason: Sleep Last Admin: 01/10/17 23:22 Dose: 15 mg Thiamine HCl (Vitamin B-1) 100 mg PO BEDTIME [facility] Last Admin: 01/11/17 20:06 Dose: 100 mg Tramadol HCl (Ultram) 50 mg PO DAILY PRN PRN Reason: Pain Last Admin: 01/12/17 11:01 Dose: 50 mg Discontinued Medications Albuterol (Proventil Neb Soln) 2.5 mg NEB ONETIME ONE Stop: 01/08/17 17:02 Last Admin: 01/08/17 17:09 Dose: 2.5 mg Albuterol (Proventil Neb Soln) 2.5 mg NEB ONETIME ONE Stop: 01/08/17 18:32 Last Admin: 01/08/17 18:36 Dose: 2.5 mg Albuterol (Proventil Neb Soln) 2.5 mg NEB ONETIME ONE Stop: 01/08/17 18:33 Last Admin: 01/08/17 18:36 Dose: 2.5 mg Albuterol/Ipratropium (Duoneb 3.0-0.5 Mg/3 Ml) 3 ml NEB ONETIME ONE Stop: 01/08/17 18:18 Last Admin: 01/08/17 18:28 Dose: 3 ml Aspirin (Halfprin) 81 mg PO DAILY [facility] Last Admin: 01/09/17 09:02 Dose: Not Given Hydrocortisone Sodium Succinate (Solu-Cortef) 100 mg IVPUSH Q6H [facility] Last Admin: 01/10/17 14:00 Dose: 100 mg Sodium Chloride (Normal Saline) 500 mls @ 999 mls/hr IV ONETIME ONE Stop: 01/08/17 17:31 Last Admin: 01/08/17 17:08 Dose: 999 mls/hr Levofloxacin/Dextrose 500 mg/ (Premix) 100 mls @ 100 mls/hr IV ONETIME ONE Stop: 01/08/17 18:21 Last Admin: 01/08/17 18:25 Dose: 100 mls/hr Sodium Chloride (Normal Saline) Confirm Administered Dose 1,000 mls @ as directed .ROUTE .STK-MED ONE Stop: 01/08/17 18:24 Last Admin: 01/08/17 18:44 Dose: Not Given Sodium Chloride (Normal Saline) 1,000 mls @ 999 mls/hr IV ONETIME ONE Stop: 01/08/17 19:43 Last Admin: 01/08/17 18:20 Dose: 999 mls/hr Magnesium Sulfate 2 gm/ Premix 50 mls @ 25 mls/hr IV ONETIME ONE Stop: 01/08/17 21:10 Last Admin: 01/08/17 19:19 Dose: 25 mls/hr Lactated Ringer's (Ringers, Lactated) 1,000 mls @ 999 mls/hr IV ASDIRECTED [facility] Last Admin: 01/08/17 23:36 Dose: 999 mls/hr Levofloxacin/Dextrose 750 mg/ (Premix) 150 mls @ 100 mls/hr IV Q48H [facility] Last Admin: 01/10/17 09:18 Dose: 100 mls/hr Levofloxacin/Dextrose 750 mg/ (Premix) 150 mls @ 100 mls/hr IV ONETIME ONE Stop: 01/08/17 21:55 Last Admin: 01/08/17 23:40 Dose: Not Given Meropenem 1 gm/ Sodium (Chloride) 100 mls @ 200 mls/hr IV Q8H [facility] Last Admin: 01/09/17 04:03 Dose: 200 mls/hr Vancomycin HCl 1 gm/ Sodium (Chloride) 250 mls @ 250 mls/hr IV Q24H [facility] Last Admin: 01/08/17 22:17 Dose: 250 mls/hr Sodium Chloride (Normal Saline) 1,000 mls @ 250 mls/hr IV ASDIRECTED [facility] Last Admin: 01/10/17 04:04 Dose: 250 mls/hr Meropenem 500 mg/ Sodium (Chloride) 100 mls @ 200 mls/hr IV Q8H [facility] Last Admin: 01/11/17 20:06 Dose: 100 mls/hr Vancomycin HCl 1.25 gm/ Sodium (Chloride) 250 mls @ 250 mls/hr IV Q24H [facility] Last Admin: 01/10/17 22:12 Dose: 250 mls/hr Thiamine HCl 100 mg/ Sodium (Chloride) 101 mls @ 202 mls/hr IV ONETIME ONE Stop: 01/09/17 19:34 Last Admin: 01/09/17 20:27 Dose: 202 mls/hr Lorazepam (Ativan) 0.5 mg IVPUSH ONETIME ONE Stop: 01/08/17 17:11 Last Admin: 01/08/17 17:15 Dose: 0.5 mg Lorazepam (Ativan) 1 mg IV Q6H PRN PRN Reason: Anxiety Last Admin: 01/08/17 22:21 Dose: 1 mg Magnesium Sulfate (Magnesium Sulfate 50%) 2 gm IV ONETIME ONE Stop: 01/08/17 19:01 Methylprednisolone Sodium Succinate (Solu-Medrol) 125 mg IVPUSH ONETIME ONE Stop: 01/08/17 18:32 Last Admin: 01/08/17 18:35 Dose: 125 mg Methylprednisolone Sodium Succinate (Solu-Medrol) 60 mg IVPUSH Q12H [facility] Stop: 01/11/17 21:00 Last Admin: 01/11/17 20:08 Dose: 60 mg Multivitamins/Minerals (Cerovite Advanced Formula Tablet) 1 tab PO BEDTIME [facility] Last Admin: 01/09/17 22:08 Dose: Not Given Pantoprazole Sodium (Protonix Iv) 40 mg IV Q12HR [facility] Last Admin: 01/12/17 09:09 Dose: 40 mg Potassium Chloride (Klor-Con M20) 40 meq PO ONETIME ONE Stop: 01/10/17 12:32 Last Admin: 01/10/17 13:08 Dose: 40 meq Potassium Chloride (Klor-Con M20) 20 meq PO Q3H [facility] Stop: 01/11/17 15:31 Last Admin: 01/11/17 16:22 Dose: 20 meq Vancomycin HCl (Vancomycin) 1 mg IV Q12H [facility] Vancomycin HCl (Pharmacy To Dose - Vancomycin) 0 dose .XX ASDIRECTED PRN PRN Reason: RX TO DOSE IV VANCOMYCIN - Exam General: Reports: Alert, Oriented, Cooperative, No Acute Distress HEENT: Reports: Pupils Equal, Pupils Reactive, EOMI, Mucous Membr. Moist/[place] Neck: Reports: Supple, Trachea Midline, No JVD Lungs: Reports: Clear to Auscultation, Normal Respiratory Effort Cardiovascular: Reports: Regular Rate, Regular Rhythm GI/Abdominal Exam: Normal Bowel Sounds, Soft, Non-Tender, No Organomegaly, No Distention, No Abnormal Bruit (Female) Exam: Deferred Rectal (Female) Exam: Deferred Back Exam: Reports: Normal Inspection, Decreased Range of Motion Extremities: Normal Inspection, Normal Range of Motion, Non-Tender, No Pedal Edema, Normal Capillary Refill Skin: Reports: Warm, Dry, Intact Neurological: Reports: No New Focal Deficit Psy/Mental Status: Reports: Alert, Normal Affect, Normal Mood *Q Meaningful Use (DIS) - VTE *Q VTE Criteria *Q: - Stroke *Q Stroke Criteria *Q: - AMI *Q AMI Criteria *Q:
[2017-01-12] MEDS: LORazepam 2 MG/ML MDV IVPUSH PRN (15:41)
[2017-01-12 15:49] VITALS: BP 141/87
[2017-01-13] MEDS ORDERED: Pantoprazole 40 MG Tab.CR PO SCH (09:00)
== END 2017-01-12 18:08 | disposition home or self-care (01) | DRG 871 ==
LOC: JD.ED 16:47 → JD.MS 18:15 → JD.ICU 20:23
PROVIDERS: ADMIT Internal Medicine; ATTEND Internal Medicine
DX: A41.9 Sepsis, unspecified organism (principal); J96.01 Acute respiratory failure with hypoxia; N17.9 Acute kidney failure, unspecified; E87.2 Acidosis; B34.9 Viral infection, unspecified; D69.6 Thrombocytopenia, unspecified; E86.0 Dehydration; E11.9 Type 2 diabetes mellitus without complications; Z79.84 Long term (current) use of oral hypoglycemic drugs; J45.909 Unspecified asthma, uncomplicated; R13.10 Dysphagia, unspecified; K21.0 Gastro-esophageal reflux disease with esophagitis; K44.9 Diaphragmatic hernia without obstruction or gangrene; M19.90 Unspecified osteoarthritis, unspecified site; G89.29 Other chronic pain; M25.559 Pain in unspecified hip; E03.9 Hypothyroidism, unspecified; M41.9 Scoliosis, unspecified; H54.7 Unspecified visual loss; Z88.1 Allergy status to other antibiotic agents; Z88.2 Allergy status to sulfonamides; Z79.82 Long term (current) use of aspirin; Z79.899 Other long term (current) drug therapy; E78.5 Hyperlipidemia, unspecified
CPT/HCPCS: 36415; 71010; 71010-26; 80053; 80074; 81001; 82533; 83605; 83735; 83880; 84145; 84484; 85025; 85379; 85610; 85730; 86140; 86308; 86738; 86788; 86789; 87040; 87070; 87086; 87205; 87486; 87581; 87633; 87798; 87804; 87899; 92610-GN; 93005; 94640; 94640-76; 94660; 94667; 94668; 96361; 96365; 96366; 96367; 96375; 97110-GP; 97116-GP; 97163-GP; 97165-GO; 97530-GO; 99285-25; 99291; A9270; A9270-GY; C9113; J1720; J1956; J2060; J2185; J2270; J2920; J2930; J3370; J3411; J3475; J7030; J7040; J7050; J7120

== ENCOUNTER 2017-12-06 13:40 | Emergency (ER) | payer OTHER ==
[2017-12-06 13:50] VITALS: BP 162/99
[2017-12-06] MEDS ORDERED: Ondansetron 4 MG/2 ML SDV IVPUSH ONE ×2 (14:43→15:57)
[2017-12-06] MEDS ORDERED: Sodium Chloride 0.9% 1,000 ML IV SCH (14:45)
[2017-12-06] MEDS ORDERED: HYDROmorphone 0.5 MG/0.5 ML SYRINGE IVPUSH STA ×3 (14:45→18:15)
--- NOTE | 2017-12-06 14:47 | EDM.PDOC ---
ED HPI GENERAL MEDICAL PROBLEM - General Chief Complaint: Abdominal Pain Stated Complaint: STOMACH CRAMPS Time Seen by Provider: 12/06/17 14:15 Source of Information: Reports: Patient, Family History Limitations: Reports: No Limitations - History of Present Illness INITIAL COMMENTS - FREE TEXT/NARRATIVE: The patient states that she developed pain in a belt-like distribution across her upper abdomen, radiating to her bilateral flanks, around 09:30 this morning , after eating a greasy sharpe and egg sandwich. She is unable to describe the character of the pain, other than it "just hurts". It is constant. She has not identified any modifiers. She has had both nausea and emesis. Recent fever. Recent constipation or diarrhea. No urinary symptoms. The patient states she has had similar symptoms in the past, and the same location, but not as severe, twice in the past 2 years. She has not previously sought medical evaluation. The patient notes that gallstones were incidentally seen on a prior CT scan. The patient's last oral solid food was around 09:00 this morning. The patient's PCP is Saritha Lange. Abdomen Pain Score (Numeric/FACES): 9 - Related Data Allergies Allergy/AdvReac Type Severity Reaction Status Date / Time Sulfa (Sulfonamide Allergy Rash Verified 12/06/17 13:50 Antibiotics) tetracycline Allergy Rash Verified 12/06/17 13:50 ciprofloxacin [From Cipro] AdvReac Dizziness Verified 12/06/17 13:50 metronidazole [From Flagyl] AdvReac Dizziness Verified 12/06/17 13:50 Home Meds: Home Meds Aspirin [Ecotrin] 81 mg PO ASDIRECTED 10/14/16 [History] Cetirizine [ZyrTEC] 10 mg PO BEDTIME 10/14/16 [History] Fish Oil/[place]-3 Fatty Acids [Fish Oil 1,000 MG] 1,000 mg PO DAILY 10/14/16 [ History] Flaxseed Oil [Flax Oil] 1,000 mg PO DAILY 10/14/16 [History] Gluc 2KCl/Chondr/Bere Hy/Hy Ac [Glucosamine & Chondroitin Cap] 1 cap PO BID [History] Levothyroxine [Synthroid] 100 mcg PO DAILY 10/14/16 [History] Meloxicam 15 mg PO QPM 10/14/16 [History] Multivitamin [Flintstones] 1 tab PO DAILY 10/14/16 [History] Pyridoxine HCl [Vitamin B-6] 100 mg PO BID 10/14/16 [History] Rosuvastatin Calcium 5 mg PO DAILY 10/14/16 [History] Ubidecarenone [Coq-10] 100 mg PO DAILY 10/14/16 [History] traMADol [Ultram] 50 mg PO DAILY PRN 10/14/16 [History] metFORMIN HCl [Metformin HCl ER] 750 mg PO QPM 10/15/16 [History] Albuterol [IJD: Albuterol] 2.5 mg NEB BID #25 ml 01/12/17 [Rx] Albuterol [Proventil HFA] 200 puff INH Q4H PRN #1 inhaler 01/12/17 [Rx] Past Medical History HEENT History: Reports: Allergic Rhinitis, Impaired Vision Cardiovascular History: Reports: High Cholesterol Respiratory History: Reports: Asthma (possible) Gastrointestinal History: Reports: GERD (history of Schatzki ring) Musculoskeletal History: Reports: Arthritis, Other (See Below) (Scoliosis) Endocrine/Metabolic History: Reports: Diabetes, Type II, Hypothyroidism - Infectious Disease History Infectious Disease History: Reports: Chicken Pox, Measles - Past Surgical History HEENT Surgical History: Reports: Naso-Sinus Surgery (Deviated septum), Oral Surgery (wisdom teeth extraction), Tonsillectomy GI Surgical History: Reports: Appendectomy, Colonoscopy, EGD, Esophageal Dilatation (Schatzki ring) Female Surgical History: Reports: Section (x 1), D&C (x 1), Hysterectomy Endocrine Surgical History: Reports: Thyroidectomy (partial, for goiter) Musculoskeletal Surgical History: Reports: Carpal Tunnel (bilateral) Social & Family History - Family History Family Medical History: Noncontributory - Tobacco Use Smoking Status *Q: Never Smoker Second Hand Smoke Exposure: Yes - Caffeine Use Caffeine Use: Reports: Soda - Alcohol Use Alcohol Use History: Yes Days Per Week of Alcohol Use: 7 Number of Drinks Per Day: 1 Total Drinks Per Week: 7 Alcohol Use Frequency: Socially - Recreational Drug Use Recreational Drug Use: No - Living Situation & Occupation Living situation: Reports: , with Spouse Occupation: Employed (Teaches nursing students) ED ROS GENERAL - Review of Systems Review Of Systems: ROS reveals no pertinent complaints other than HPI. ED EXAM, GI/ABD - Physical Exam Exam: See Below Exam Limited By: No Limitations General Appearance: Alert, WD/WN, No Apparent Distress Eyes: Bilateral: Normal Appearance, EOMI Ears: Normal External Exam, Hearing Grossly Normal Nose: Normal Inspection, No Blood Throat/Mouth: Normal Inspection, Normal Lips, Normal Voice, No Airway Compromise Head: Atraumatic, Normocephalic Neck: Normal Inspection, Full Range of Motion Respiratory/Chest: No Respiratory Distress, Lungs Clear, Normal Breath Sounds, No Accessory Muscle Use Cardiovascular: Normal Peripheral Pulses, Regular Rate, Rhythm, No Gallop, No JVD, No Murmur, No Rub GI/Abdominal Exam: Soft, No Organomegaly, No Distention, No Abnormal Bruit, No Mass, Pelvis Stable, Tender (Right upper quadrant only. Nontender elsewhere. Swenson's sign present.), Abnormal Bowel Sounds (decreased), Other (Obese) (Female) Exam: Deferred Rectal (Female) Exam: Deferred Back Exam: Normal Inspection, Full Range of Motion. No: CVA Tenderness (L), CVA Tenderness (R) Extremities: Normal Inspection, Normal Range of Motion, No Pedal Edema, Normal Capillary Refill Neurological: Alert, Oriented, Normal Cognition, No Motor/Sensory Deficits Psychiatric: Normal Affect Skin Exam: Warm, Dry, Intact, Normal Color, No Rash Course - Vital Signs Last Recorded V/S: Last Vital Signs Temp 36.3 C 12/06/17 13:46 Pulse 83 12/06/17 13:46 Resp 16 12/06/17 13:46 BP 162/99 H 12/06/17 13:46 Pulse Ox 100 12/06/17 13:46 - Orders/Labs/Meds Labs: Laboratory Tests 12/06/17 12/06/17 12/06/17 Range/Units 14:20 14:56 15:50 WBC 19.50 H (3.98-10.04) K/mm3 RBC 4.56 (3.98-5.22) M/mm3 Hgb 13.8 (11.2-15.7) gm/L Hct 40.7 (34.1-44.9) % MCV 89.3 (79.4-94.8) fl MCH 30.3 (25.6-32.2) pg MCHC 33.9 (32.2-35.5) g/dl RDW Std Deviation 41.9 (36.4-46.3) fL Plt Count 276 (182-369) K/mm3 MPV 8.9 L (9.4-12.3) fl Neutrophils % (Manual) 73 H (40-60) % Band Neutrophils % 4 (0-10) % Lymphocytes % (Manual) 14 L (20-40) % Atypical Lymphs % 0 % Monocytes % (Manual) 9 (2-10) % Eosinophils % (Manual) 0 L (0.7-5.8) % Basophils % (Manual) 0 L (0.1-1.2) Platelet Estimate Adequate RBC Morph Comment Normal Sodium 141 (136-145) mEq/L Potassium 3.7 (3.5-5.1) mEq/L Chloride 105 (98-107) mEq/L Carbon Dioxide 22 (21-32) mEq/L Anion Gap 17.7 H (5-15) BUN 18 (7-18) mg/dL Creatinine 0.8 (0.55-1.02) mg/dL Est Cr Clr Drug Dosing 63.77 mL/min Estimated GFR (MDRD) > 60 (>60) mL/min BUN/Creatinine Ratio 22.5 H (14-18) Glucose 133 H (80-115) mg/dL Calcium 9.4 (8.5-10.1) mg/dL Total Bilirubin 0.5 (0.2-1.0) mg/dL AST 31 (15-37) U/L ALT 68 H (14-59) U/L Alkaline Phosphatase 167 H (46-116) U/L Total Protein 8.2 (6.4-8.2) g/dl Albumin 4.0 (3.4-5.0) g/dl Globulin 4.2 gm/dL Albumin/Globulin Ratio 1.0 (1-2) Lipase 117 (73-393) U/L Urine Color Yellow (Yellow) Urine Appearance Clear (Clear) Urine pH 6.5 (5.0-8.0) Ur Specific [place] 1.025 (1.005-1.030) Urine Protein Trace H (Negative) Urine Glucose (UA) Negative (Negative) Urine Ketones 2+ H (Negative) Urine Occult Blood 2+ H (Negative) Urine Nitrite Negative (Negative) Urine Bilirubin Negative (Negative) Urine Urobilinogen 0.2 (0.2-1.0) Ur Leukocyte Esterase Negative (Negative) Urine RBC 10-20 H (0-5) /hpf Urine WBC 0-5 (0-5) /hpf Ur Epithelial Cells 0-5 (0-5) /hpf Urine Bacteria Few (FEW) /hpf Urine Mucus Few (FEW) /hpf Meds: Medications Discontinued Medications Generic Name Dose Route Start Last Admin Trade Name Freq PRN Reason Stop Dose Admin Diatrizoate Meglum/Diatrizoate Sod 120 ml 12/06/17 15:27 12/06/17 16:43 Gastrografin 37% PO 12/06/17 15:28 90 ml ONETIME ONE Administration Hydromorphone HCl 1 mg 12/06/17 14:45 12/06/17 14:54 Dilaudid IVPUSH 12/06/17 14:46 1 mg ONETIME STA Administration Hydromorphone HCl 1 mg 12/06/17 15:56 12/06/17 16:08 Dilaudid IVPUSH 12/06/17 15:57 1 mg ONETIME STA Administration Hydromorphone HCl 1 mg 12/06/17 18:15 12/06/17 18:23 Dilaudid IVPUSH 12/06/17 18:16 1 mg ONETIME STA Administration Sodium Chloride 1,000 mls @ 150 mls/hr 12/06/17 14:45 12/06/17 14:55 Normal Saline IV 150 mls/hr ASDIRECTED FARHAT Administration Iopamidol 150 ml 12/06/17 15:27 12/06/17 16:42 Isovue-300 (61%) IVPUSH 12/06/17 15:28 125 ml ONETIME ONE Administration Ondansetron HCl 4 mg 12/06/17 14:43 12/06/17 14:54 Zofran IVPUSH 12/06/17 14:44 4 mg ONETIME ONE Administration Ondansetron HCl 4 mg 12/06/17 15:57 12/06/17 16:08 Zofran IVPUSH 12/06/17 15:58 4 mg ONETIME ONE Administration Sodium Chloride 10 ml 12/06/17 15:27 12/06/17 16:43 Saline Flush FLUSH 10 ml ONETIME PRN Administration IV FLUSH - Re-Assessments/Exams Free Text/Narrative Re-Assessment/Exam: 12/06/17 14:47 The patient history and physical examination are entirely consistent with acute cholecystitis. I have ordered an ultrasound of the right upper quadrant, to be followed by a CT scan of the abdomen and pelvis with oral and IV contrast, in addition to blood work and a urinalysis. I ordered Dilaudid, Zofran, and IV fluid. 12/06/17 16:26 Ultrasound of the right upper quadrant is read by [facility] as: 1. In the gallbladder there is echogenic biliary sludge. Small granular gallstones are suspected. There is no sign of cholecystitis. 2. Diffuse fatty infiltration the liver. 3. A 5 mm nonobstructing stone is suspected in the mid right kidney. 12/06/17 17:36 CT of the abdomen and pelvis with oral and IV contrast is read by [facility] as: 1. Fatty infiltration of the liver. 2. Multiple small granular calcified gallstones but no sign of cholecystitis. 3. No sign of kidney stones or hydronephrosis. 4. 3.8 cm hiatal hernia. 5. 2.8 cm fat-containing right inguinal hernia. 12/06/17 18:16 Test results discussed with the patient and her . Today's workup is grossly unremarkable, and does not swing the cause of patient's pain, although clinically, she is suffering from acute cholecystitis. For today's purposes, I would like the patient to take [id number] ibuprofen as needed for pain. I will will discharge her home with instruments prescriptions for [facility] and Zofran. I am recommended heat take as low-fat a diet as possible. I will have her follow-up with Dr. Butts for further evaluation and treatment. Departure - Departure Time of Disposition: 18:17 Disposition: Home, Self-Care 01 Condition: Good Clinical Impression: Right upper quadrant abdominal pain of unknown etiology, Nausea & vomiting - Discharge Information *PRESCRIPTION DRUG MONITORING PROGRAM REVIEWED*: Not Applicable *COPY OF PRESCRIPTION DRUG MONITORING REPORT IN PATIENT YANN: Not Applicable Instructions: Nausea and Vomiting, Adult, [id number] Referrals: Saritha Lange PA-C [Primary Care Provider] - Mirta Butts MD [Physician] - Forms: ED Department Discharge Additional Instructions: You were seen in the emergency room for upper abdominal pain radiating around to your back, along with nausea and vomiting. Workup in the ER included blood work, a urinalysis, and ultrasound of your upper right abdomen, and a CT scan of your abdomen and pelvis. Your entire workup was unremarkable, and does not explain the cause of your symptoms. You do not have a kidney stone. You do not have a urinary tract infection. Despite the negative workup, it is still possible that you could have gallbladder disease. Take [id number] ibuprofen, 2-3 tablets (400-600 mg) every 8 hours, with food, as needed for pain. Take one to 2 tablets of the opioid pain reliever [facility] up to every 6 hours, as needed for pain not relieved by ibuprofen. She take [facility], do not drive for 10 hours afterwards. [facility] will likely cause constipation, so consider taking a stool softener. Dissolve one tablet of the anti-nausea medicine Zofran on your tongue up to every 8 hours, as needed for nausea/vomiting. Eat as low-fat diet as you can. Follow-up with the Surgeon Dr. Mirta Butts at the next available appointment, for further evaluation and treatment. If any other problems, please do not hesitate to return to the ER.
[2017-12-06] MEDS ORDERED: Sodium Chloride 0.9% 10 ML Syringe FLUSH PRN (15:27)
[2017-12-06] MEDS ORDERED: Iopamidol 612 MG/ML 150 ML Bottle IVPUSH ONE (15:27)
[2017-12-06] MEDS ORDERED: Diatrizoate Meglumine/Diatrizoate Sodium 37% 120 ML Bottle PO ONE (15:27)
--- NOTE | 2017-12-09 06:52 | US ---
Limited abdominal ultrasound: Multiple real-time images were obtained of the upper right abdomen. Comparison: No prior abdominal ultrasound exam. Liver is echogenic most likely representing fatty infiltration. Gallbladder contains multiple gallstones with a small amount of sludge. Small area of focal fatty sparing is noted next to the gallbladder. No gallbladder wall thickening or biliary duct dilatation is seen. Small 5 mm hyperechoic area seen within the mid right kidney which is believed to be artifact. Kidney shows no hydronephrosis. Right kidney measures 10.8 cm in length. Pancreas is incompletely seen. Visualized portions of the pancreas are unremarkable. Portal vein shows normal hepatopedal flow. Impression: 1. Findings which are felt compatible with fatty infiltration within the liver with focal fatty sparing next to the gallbladder. 2. Multiple gallstones with mild amount of sludge. No gallbladder wall thickening or biliary duct dilatation is seen. 3. No additional abnormality is identified on right upper quadrant abdominal ultrasound. Diagnostic code #3 I agree with preliminary report from [facility], finalized at 12/06/17, 5:12 PM Central Time
--- NOTE | 2017-12-09 06:52 | CT ---
CT abdomen and pelvis Technique: Multiple axial sections were obtained from above the dome of the diaphragm inferiorly through the pubic symphysis. Intravenous and oral contrast was utilized. Delayed images were also obtained through the bladder. Comparison: Prior CT exam of 10/26/09 is available as well as recent ultrasound exam performed earlier on the same day as current CT (3:15 PM). Findings: Visualized lung bases show nothing acute. Hiatal hernia is identified with gastroesophageal reflux of contrast being seen. Fatty infiltration noted within the liver. Multiple calcified gallstones are seen within the gallbladder. Spleen appears within normal limits. Adrenal glands show no nodule. Pancreas is within normal limits. Aorta shows atherosclerotic change which continues into the iliac vessels. No retroperitoneal adenopathy or mesenteric abnormalities are seen. No pelvic mass or adenopathy is seen. Small fat-containing right inguinal hernia is noted. Appendix is not visualized. Kidneys show symmetric contrast enhancement without hydronephrosis or mass. Delayed images show contrast within the distal ureters and within the bladder. No free fluid or inflammatory change is identified. Bone window settings were reviewed which show scoliosis within the spine with diffuse degenerative change. Impression: 1. Multiples calcified gallstones. 2. Fatty infiltration within the liver. 3. Small hiatal hernia with gastroesophageal reflux of contrast. 4. Degenerative change and scoliosis is noted within the spine. 5. Other incidental findings. Note: No acute right lower quadrant abdominal abnormality is appreciated. Diagnostic code #2 I agree with preliminary report from [facility], finalized at 12/06/17, 6:31 PM Central Time
== END 2017-12-06 19:04 | disposition home or self-care (01) ==
LOC: JD.ED 13:40
DX: R10.11 Right upper quadrant pain (principal); R11.2 Nausea with vomiting, unspecified; E78.00 Pure hypercholesterolemia, unspecified; K21.9 Gastro-esophageal reflux disease without esophagitis; E11.9 Type 2 diabetes mellitus without complications; E03.9 Hypothyroidism, unspecified; Z88.2 Allergy status to sulfonamides; Z88.1 Allergy status to other antibiotic agents; Z79.82 Long term (current) use of aspirin; Z79.899 Other long term (current) drug therapy; Z79.84 Long term (current) use of oral hypoglycemic drugs
CPT/HCPCS: 36415; 74177; 76705; 80053; 81001; 83690; 85007; 85027; 96361; 96374; 96375; 96376; 99284; J1170; J2405; J7040; J7050; Q9963; Q9967

== ENCOUNTER 2017-12-09 11:38 | Inpatient (IN) | payer OTHER ==
[2017-12-09] MEDS ORDERED: Sodium Chloride 0.9% 10 ML Syringe FLUSH PRN (12:10)
[2017-12-09] MEDS ORDERED: Lidocaine 1%/Sod Bicarbonate in NS 8.4% 1 ML Syringe IDERM PRN (12:10)
[2017-12-09] MEDS ORDERED: Lactated Ringers 1,000 ML IV SCH (12:15)
--- NOTE | 2017-12-09 12:46 | PCM.PREANE ---
Preanesthetic Assessment - Anesthesia/Transfusion/Family Hx Anesthesia History: Prior Anesthesia Without Reaction Transfusion History: No Prior Transfusion(s) - Review of Systems General: No Symptoms Pulmonary: No Symptoms Cardiovascular: No Symptoms Gastrointestinal: No Symptoms Neurological: No Symptoms - Physical Assessment NPO Status Date: 12/08/17 NPO Status Time: 18:00 O2 Sat by Pulse Oximetry: 100 Respiratory Rate: 16 Vital Signs: Last Vital Signs Temp 97.2 F 12/09/17 12:05 Pulse 96 12/09/17 12:05 Resp 16 12/09/17 12:05 BP 102/75 12/09/17 12:05 Pulse Ox 100 12/09/17 12:05 Height: 1.6 m Weight: 73.028 kg ASA Class: 3 Airway Class: Mallampati = 2 Thyro-Mental Finger Breadths: 3 Mouth Opening Finger Breadths: 3 ROM/Head Extension: Full Lungs: Clear to Auscultation Cardiovascular: Regular Rate - Allergies Allergies/Adverse Reactions: Allergies Allergy/AdvReac Type Severity Reaction Status Date / Time Sulfa (Sulfonamide Allergy Rash Verified 12/06/17 13:50 Antibiotics) tetracycline Allergy Rash Verified 12/06/17 13:50 ciprofloxacin [From Cipro] AdvReac Dizziness Verified 12/06/17 13:50 metronidazole [From Flagyl] AdvReac Dizziness Verified 12/06/17 13:50 - Acknowledgements Anesthesia Type Planned: General Anesthesia Pt an Appropriate Candidate for the Planned Anesthesia: Yes Alternatives and Risks of Anesthesia Discussed w Pt/Guardian: Yes Pt/Guardian Understands and Agrees with Anesthesia Plan: Yes PreAnesthesia Questionnaire HEENT History: Reports: Allergic Rhinitis, Impaired Vision Cardiovascular History: Reports: High Cholesterol Respiratory History: Reports: Asthma Gastrointestinal History: Reports: GERD Other Gastrointestinal History: dysphagia Musculoskeletal History: Reports: Arthritis, Other (See Below) Other Musculoskeletal History: chronic hip pain, scoliosis Endocrine/Metabolic History: Reports: Diabetes, Type II, Hypothyroidism Dermatologic History: Reports: Cellulitis - Infectious Disease History Infectious Disease History: Reports: Chicken Pox, Measles - Past Surgical History HEENT Surgical History: Reports: Naso-Sinus Surgery, Oral Surgery, Tonsillectomy GI Surgical History: Reports: Appendectomy, Colonoscopy, EGD, Esophageal Dilatation Other GI Surgeries/Procedures: esophageal dilation Female Surgical History: Reports: Section, D&C, Hysterectomy Endocrine Surgical History: Reports: Thyroidectomy Other Endocrine Surgeries/Procedures: partial thyroidectomy Musculoskeletal Surgical History: Reports: Carpal Tunnel Other Musculoskeletal Surgeries/Procedures:: carpal tunnel surgery - SUBSTANCE USE Smoking Status *Q: Never Smoker Recreational Drug Use History: No - HOME MEDS Home Medications: Home Meds Aspirin [Ecotrin] 81 mg PO ASDIRECTED 10/14/16 [History] Cetirizine [ZyrTEC] 10 mg PO BEDTIME 10/14/16 [History] Fish Oil/[place]-3 Fatty Acids [Fish Oil 1,000 MG] 1,000 mg PO DAILY 10/14/16 [ History] Flaxseed Oil [Flax Oil] 1,000 mg PO DAILY 10/14/16 [History] Gluc 2KCl/Chondr/Bere Hy/Hy Ac [Glucosamine & Chondroitin Cap] 1 cap PO BID [History] Levothyroxine [Synthroid] 100 mcg PO DAILY 10/14/16 [History] Meloxicam 15 mg PO QPM 10/14/16 [History] Multivitamin [Flintstones] 1 tab PO DAILY 10/14/16 [History] Pyridoxine HCl [Vitamin B-6] 100 mg PO BID 10/14/16 [History] Rosuvastatin Calcium 5 mg PO DAILY 10/14/16 [History] Ubidecarenone [Coq-10] 100 mg PO DAILY 10/14/16 [History] traMADol [Ultram] 50 mg PO DAILY PRN 10/14/16 [History] metFORMIN HCl [Metformin HCl ER] 750 mg PO QPM 10/15/16 [History] Albuterol [IJD: Albuterol] 2.5 mg NEB BID #25 ml 01/12/17 [Rx] Albuterol [Proventil HFA] 200 puff INH Q4H PRN #1 inhaler 01/12/17 [Rx] - CURRENT (IN HOUSE) MEDS Current Meds: Current Medications Lactated Ringer's (Ringers, Lactated) 1,000 mls @ 125 mls/hr IV ASDIRECTED FARHAT Stop: 12/09/17 23:00 Last Admin: 12/09/17 12:12 Dose: 125 mls/hr Ampicillin Sodium/Sulbactam (Sodium 3 gm/ Sodium Chloride) 100 mls @ 200 mls/ hr IV ONETIME ONE Stop: 12/09/17 12:59 Lidocaine/Sodium Bicarbonate (Buffered Lidocaine 1% In Ns 8.4%) 0.25 ml IDERM ONETIME PRN PRN Reason: Prior to IV Start Stop: 12/09/17 18:00 Last Admin: 12/09/17 12:11 Dose: 0.25 ml Sodium Chloride (Saline Flush) 10 ml FLUSH ASDIRECTED PRN PRN Reason: Keep Vein Open Stop: 12/09/17 18:00
[2017-12-09] MEDS ORDERED: Propofol 200 MG/20 ML SDV ONE (13:03)
[2017-12-09] MEDS ORDERED: fentaNYL 250 MCG/5 ML SDV ONE (13:03)
[2017-12-09] MEDS ORDERED: Midazolam 1 MG/ML 2 ML SDV ONE (13:03)
[2017-12-09] MEDS ORDERED: Rocuronium 50 MG/5 ML Vial ONE ×2 (13:03→14:57)
[2017-12-09] MEDS ORDERED: Sodium Chloride 0.9% 50 ML SDV ONE (13:04)
[2017-12-09] MEDS ORDERED: Iopamidol 612 MG/ML 50 ML SDV ONE (13:04)
[2017-12-09] MEDS ORDERED: Bupivacaine 0.5% 30 ML SDV ONE (13:04)
[2017-12-09] MEDS: Ampicillin/Sulbactam Na 3 GM in Sodium Chloride 0.9% 100 ML IV ONE ×2 (13:15→20:55)
[2017-12-09] MEDS ORDERED: Lactated Ringers 1,000 ML ONE (14:28)
[2017-12-09] MEDS ORDERED: fentaNYL 100 MCG/2 ML SDV IVPUSH PRN (14:38)
[2017-12-09] MEDS ORDERED: Meperidine 50 MG/ML Vial IVPUSH PRN (14:38)
[2017-12-09] MEDS ORDERED: Albuterol/Ipratropium 3.0-0.5 MG/3 ML Neb Soln NEB ONE (14:38)
[2017-12-09] MEDS ORDERED: HYDROmorphone 0.5 MG/0.5 ML Syringe IVPUSH PRN (14:38)
[2017-12-09] MEDS ORDERED: Piperacillin/Tazobactam 4.5 GM in Sodium Chloride 0.9% 100 ML IV ONE ×2 (15:00→16:30)
[2017-12-09] MEDS ORDERED: Phenylephrine/Normal Saline 100 MCG/ML 10 ML Syringe ONE (15:24)
[2017-12-09] MEDS ORDERED: Neostigmine Methylsulfate 1 MG/ML 5 ML Syringe ONE (15:49)
[2017-12-09] MEDS ORDERED: HYDROmorphone 0.5 MG/0.5 ML Syringe ONE (15:54)
--- NOTE | 2017-12-09 15:59 | PCM.OPNOTE ---
- General Post-Op/Procedure Note Date of Surgery/Procedure: 12/09/17 Operative Procedure(s): laproscopy/open cholecytectomy Findings: necrotic gall bladder Pre Op Diagnosis: cholelithiasis acute cholecystitis Post-Op Diagnosis: Same Anesthesia Technique: General ET Tube Primary Surgeon: Favio Jackson EBL in mLs: 200 Complications: None Condition: Good
[2017-12-09] MEDS ORDERED: HYDROmorphone 0.5 MG/0.5 ML SYRINGE IVPUSH PRN (16:03)
--- NOTE | 2017-12-09 16:13 | PCM.POSTAN ---
POST ANESTHESIA ASSESSMENT - MENTAL STATUS Mental Status: Somnolent - VITAL SIGNS Pulse Rate: 101 SaO2: 97 Resp Rate: 17 Blood Pressure: 135/63 Temperature: 98.7 F - RESPIRATORY Respiratory Status: Respiratory Rate WNL, Airway Patent, O2 Saturation Stable, Supplemental Oxygen - CARDIOVASCULAR CV Status: Blood Pressure Stable, Elevated Pulse Rate - GASTROINTESTINAL GI Status: No Symptoms - PAIN Pain Score: 5 - POST OP HYDRATION Hydration Status: Adequate & Stable
[2017-12-09] MEDS: HYDROmorphone 1 MG/ML Syringe IVPUSH PRN ×2 (18:59→20:21)
[2017-12-09] MEDS: Lactated Ringers 1,000 ML IV SCH (20:21)
[2017-12-09] MEDS: Ketorolac 30 MG/ML SDV IVPUSH PRN (23:30)
[2017-12-09] MEDS: Piperacillin/Tazobactam 4.5 GM in Sodium Chloride 0.9% 100 ML IV SCH (23:31)
[2017-12-10] MEDS: HYDROmorphone 1 MG/ML Syringe IVPUSH PRN (04:08)
--- NOTE | 2017-12-10 06:21 | OR ---
DATE OF OPERATION: 12/09/2017 SURGEON: Favio Jackson MD PREOPERATIVE DIAGNOSIS: Cholelithiasis, acute cholecystitis. POSTOPERATIVE DIAGNOSIS: Cholelithiasis, acute cholecystitis. OPERATION PERFORMED: Laparoscopy, open cholecystectomy. FINDINGS: Necrotic gallbladder. ESTIMATED BLOOD LOSS: About 200 mL. DESCRIPTION OF PROCEDURE: The patient was taken to the operating room, placed in a supine position, given a general anesthetic, and intubated. Antibiotics were given of Unasyn and later another dose of Zosyn was given. The patient's abdomen was then prepped with chlorhexidine alcohol prep and draped off in a sterile fashion. An incision was made just below the umbilicus and using a 5-mm Optiport, abdominal cavity was entered and pneumoperitoneum established. A 5-mm 0-degree camera was then inserted showing omentum with fibrinous exudate adherent to the edge of the liver was noted. Gallbladder was not visible. A 10-mm trocar was then placed in the epigastric position, 5 mm trocar in right upper quadrant and one in right lateral quadrant. Instruments were placed through these to bluntly dissect the inflamed omentum off the edge of the liver, showing the gallbladder. Further retraction revealed areas of necrosis around the gallbladder, and the gallbladder was stiff and difficult to hold. It was elected at this time to abandon the laparoscopic technique and proceed with an open. The instruments, ports and pneumoperitoneum were removed, and the camera was then handed off. At this time, Zosyn was ordered, antibiotic. Once the instruments were counted, a subcostal incision was made and carried down by sharp dissection to the fascia. This was opened up, and the muscle was incised, suturing any bleeding points in the muscle with 3-0 Vicryl suture. Posterior fascia was opened, exposing the gallbladder. A wound protector was placed, and the lap pad placed in the Morison's pouch in the gallbladder. In the omentum, transverse colon was retracted in a caudal position. The incision was made over the dome of the gallbladder, and this dissection was started, but it was clear that the mucosal wall was necrotic and it was then elected to just open up the gallbladder, remove the stones and leaving the posterior wall adherent to the gallbladder. This was then dissected to the cystic artery, which was ligated after placing a right-angle retractor on the artery and tying off with 3-0 Vicryl suture. Dissection of the cystic duct was done, but was unable to get a cholangiogram. The cystic duct was then clamped with the right angle and tied off with 3-0 Vicryl suture. The area was irrigated. A Demetrio-Randle drain was then placed in a separate incision and placed in Morison's pouch. After lap and instrument counts were correct, the posterior fascia was closed with a running #1 PDS. The anterior fascia was closed with the same suture in a running fashion and tied off to the posterior fascia, which was brought up anteriorly to the anterior fascia and then tied off to the other remaining suture. The subcuticular tissue was irrigated, and the dermis brought together with interrupted 3-0 Vicryl suture and grace used to approximate the skin. Sterile dressing placed. Note that the laparoscopic incisions were closed with subdermal 4-0 Dexon suture prior to the laparotomy skin incision. The patient tolerated the procedure and was sent to recovery room in a stable condition. ANESTHESIA: MMODAL /[id number]
[2017-12-10] MEDS: Piperacillin/Tazobactam 4.5 GM in Sodium Chloride 0.9% 100 ML IV SCH ×2 (08:23→15:46)
--- NOTE | 2017-12-10 08:27 | PCM48HPAN ---
Post Anesthesia Note - EVALUATION WITHIN 48HRS OF ANESTHETIC Vital Signs in Normal Range: Yes Patient Participated in Evaluation: Yes Respiratory Function Stable: Yes Airway Patent: Yes Cardiovascular Function Stable: Yes Hydration Status Stable: Yes Pain Control Satisfactory: Yes Nausea and Vomiting Control Satisfactory: Yes Mental Status Recovered: Yes Pulse Rate: 90 Resp Rate: 18 Temperature: 97.3 F Blood Pressure: 109/61
[2017-12-10] MEDS: Ketorolac 30 MG/ML SDV IVPUSH PRN (08:45)
[2017-12-10] MEDS ORDERED: Ondansetron 4 MG/2 ML SDV IVPUSH PRN (09:45)
--- NOTE | 2017-12-10 10:04 | PCM.SURGPN ---
- General Info Date of Service: 12/10/17 POD#: 1 Functional Status: Reports: Pain Controlled - Review of Systems General: Reports: Fever (low grade) Pulmonary: Reports: Other (decrease breath sound in the base) Cardiovascular: Reports: No Symptoms Gastrointestinal: Reports: No Symptoms - Patient Data Vitals - Most Recent: Last Vital Signs Temp 100.2 F 12/10/17 08:30 Pulse 91 12/10/17 08:30 Resp 16 12/10/17 08:30 BP 121/73 12/10/17 08:30 Pulse Ox 98 12/10/17 08:30 Weight - Most Recent: 75.931 kg I&O - Last 24 Hours: Intake & Output 12/09/17 12/10/17 12/10/17 23:59 07:59 15:59 Intake Total 1522 100 10 Output Total 50 650 300 Balance 7987 -622 -980 Med Orders - Current: Current Medications Hydrocodone Bitart/Acetaminophen ([place] 325-5 Mg) 1 tab PO Q6H PRN PRN Reason: Pain Heparin Sodium (Porcine) (Heparin Sodium) 5,000 units SUBCUT Q12H [facility] Hydromorphone HCl (Dilaudid) 0.5 mg IVPUSH Q1H PRN PRN Reason: Pain Lactated Ringer's (Ringers, Lactated) 1,000 mls @ 125 mls/hr IV ASDIRECTED [facility] Last Admin: 12/09/17 20:21 Dose: 125 mls/hr Piperacillin Sod/Tazobactam (Sod 4.5 gm/ Sodium Chloride) 100 mls @ 25 mls/hr IV Q8H [facility] Last Admin: 12/10/17 08:23 Dose: 25 mls/hr Levothyroxine Sodium (Synthroid) 100 mcg PO DAILY [facility] Ondansetron HCl (Zofran) 4 mg IVPUSH Q8H PRN PRN Reason: Nausea Rosuvastatin Calcium (Crestor) 5 mg PO DAILY [facility] Discontinued Medications Albuterol/Ipratropium (Duoneb 3.0-0.5 Mg/3 Ml) 3 ml NEB ONETIME ONE Stop: 12/09/17 14:39 Last Admin: 12/09/17 18:54 Dose: Not Given Bupivacaine HCl (Marcaine 0.5%) Confirm Administered Dose 30 ml .ROUTE .STK-MED ONE Stop: 12/09/17 13:05 Last Admin: 12/09/17 14:17 Dose: 5 ml Fentanyl (Sublimaze) Confirm Administered Dose 250 mcg .ROUTE .STK-MED ONE Stop: 12/09/17 13:04 Fentanyl (Sublimaze) 50 mcg IVPUSH Q5M PRN PRN Reason: Pain Stop: 12/09/17 18:00 Last Admin: 12/09/17 16:22 Dose: 50 mcg Glycopyrrolate () Confirm Administered Dose 1 mg .ROUTE .STK-MED ONE Stop: 12/09/17 15:50 Hydromorphone HCl (Dilaudid) 0.5 mg IVPUSH Q15M PRN PRN Reason: Pain Stop: 12/09/17 20:00 Last Admin: 12/09/17 16:27 Dose: 0.5 mg Hydromorphone HCl (Dilaudid) Confirm Administered Dose 0.5 mg .ROUTE .STK-MED ONE Stop: 12/09/17 15:55 Hydromorphone HCl (Dilaudid) 0.5 mg IVPUSH ONETIME PRN PRN Reason: Pain Hydromorphone HCl (Dilaudid) 0.5 mg IVPUSH Q1H PRN PRN Reason: Pain Last Admin: 12/10/17 04:08 Dose: 0.5 mg Lactated Ringer's (Ringers, Lactated) 1,000 mls @ 125 mls/hr IV ASDIRECTED [facility] Stop: 12/09/17 23:00 Last Admin: 12/09/17 12:12 Dose: 125 mls/hr Ampicillin Sodium/Sulbactam (Sodium 3 gm/ Sodium Chloride) 100 mls @ 200 mls/ hr IV ONETIME ONE Stop: 12/09/17 12:59 Last Admin: 12/09/17 20:55 Dose: Not Given Lidocaine HCl (Xylocaine-Mpf 1%) Confirm Administered Dose 5 mls @ as directed .ROUTE .STK-MED ONE Stop: 12/09/17 13:04 Lactated Ringer's (Ringers, Lactated) Confirm Administered Dose 1,000 mls @ as directed .ROUTE .STK-MED ONE Stop: 12/09/17 14:29 Piperacillin Sod/Tazobactam (Sod 4.5 gm/ Sodium Chloride) 100 mls @ 200 mls/hr IV ONETIME ONE Stop: 12/09/17 15:29 Last Admin: 12/09/17 17:09 Dose: 200 mls/hr Piperacillin Sod/Tazobactam (Sod 4.5 gm/ Sodium Chloride) 100 mls @ 200 mls/hr IV ONETIME ONE Stop: 12/09/17 16:59 Last Admin: 12/09/17 17:33 Dose: Not Given Iopamidol (Isovue-300 (61%)) Confirm Administered Dose 50 ml .ROUTE .STK-MED ONE Stop: 12/09/17 13:05 Ketorolac Tromethamine (Toradol) 30 mg IVPUSH Q6H PRN PRN Reason: Pain Last Admin: 12/10/17 08:45 Dose: 30 mg Lidocaine/Sodium Bicarbonate (Buffered Lidocaine 1% In Ns 8.4%) 0.25 ml IDERM ONETIME PRN PRN Reason: Prior to IV Start Stop: 12/09/17 18:00 Last Admin: 12/09/17 12:11 Dose: 0.25 ml Meperidine HCl (Meperidine) 12.5 mg IVPUSH ONETIME PRN PRN Reason: Shivering Stop: 12/09/17 18:00 Midazolam HCl (Versed 1 Mg/Ml) Confirm Administered Dose 2 mg .ROUTE .STK-MED ONE Stop: 12/09/17 13:04 Neostigmine Methylsulfate (Neostigmine) Confirm Administered Dose 5 mg .ROUTE .STK-MED ONE Stop: 12/09/17 15:50 Phenylephrine HCl (Phenylephrine In Ns 100 Mcg/Ml) Confirm Administered Dose 1 mg .ROUTE .STK-MED ONE Stop: 12/09/17 15:25 Propofol (Diprivan 20 Ml) Confirm Administered Dose 200 mg .ROUTE .STK-MED ONE Stop: 12/09/17 13:04 Rocuronium [place] (Zemuron) Confirm Administered Dose 50 mg .ROUTE .STK-MED ONE Stop: 12/09/17 13:04 Rocuronium [place] (Zemuron) Confirm Administered Dose 50 mg .ROUTE .STK-MED ONE Stop: 12/09/17 14:58 Sodium Chloride (Saline Flush) 10 ml FLUSH ASDIRECTED PRN PRN Reason: Keep Vein Open Stop: 12/09/17 18:00 Sodium Chloride (Normal Saline) Confirm Administered Dose 50 ml .ROUTE .STK-MED ONE Stop: 12/09/17 13:05 - Exam Wound/Incisions: Healing Well General: Alert, Oriented Lungs: Decreased Breath Sounds (rt base) GI/Abdominal Exam: Normal Bowel Sounds, Soft, Non-Tender, No Organomegaly, No Distention, No Abnormal Bruit, No Mass, Pelvis Stable, Abnormal Bowel Sounds ( quiet abdomen) - Problem List Review Problem List Initiated/Reviewed/Updated: Yes - My Orders Last 24 Hours: Active Orders 24 hr Category Date Time Status Patient Status [ADT] Routine ADT 12/09/17 15:59 Active Ambulate [RC] ASDIRECTED Care 12/09/17 15:59 Active Blood Glucose Check, Bedside [RC] QIDACANDBED Care 12/10/17 09:53 Active Incentive Breathing [RT Incentive Spirometry] [RC] Care 12/09/17 16:04 Active Q2HWA Notify Provider [RC] Care 12/09/17 14:38 Active RT Aerosol Therapy [RC] ASDIRECTED Care 12/10/17 10:01 Ordered Turn, Cough, Deep Breathe [RC] .PRN Care 12/09/17 15:59 Active Vital Signs [RC] Q4HR Care 12/09/17 14:38 Inactive Clear Liquid Diet [DIET] Diet 12/10/17 Lunch Ordered NPO [Nothing Per Oral Diet] [DIET] Diet 12/10/17 Breakfast Active CBC W/O DIFF,HEMOGRAM [HEME] MOTH@0700 Lab 12/14/17 07:00 Ordered CBC W/O DIFF,HEMOGRAM [HEME] MOTH@0700 Lab 12/17/17 07:00 Ordered CBC W/O DIFF,HEMOGRAM [HEME] MOTH@0700 Lab 12/21/17 07:00 Ordered CBC W/O DIFF,HEMOGRAM [HEME] MOTH@0700 Lab 12/24/17 07:00 Ordered CBC W/O DIFF,HEMOGRAM [HEME] MOTH@0700 Lab 12/28/17 07:00 Ordered CBC W/O DIFF,HEMOGRAM [HEME] MOTH@0700 Lab 12/31/17 07:00 Ordered CBC WITH AUTO DIFF [HEME] Routine Lab 12/11/17 07:00 Ordered Acetaminophen/HYDROcodone [[place] 325-5 MG] Med 12/10/17 09:47 Ordered 1 tab PO Q6H PRN Albuterol [Proventil Neb Soln] Med 12/10/17 14:00 Ordered 2.5 mg NEB Q8HRRT HYDROmorphone [Dilaudid] Med 12/10/17 07:30 Active 0.5 mg IVPUSH Q1H PRN Heparin Sodium Med 12/10/17 18:00 Ordered 5,000 units SUBCUT Q12H Lactated Ringers [Ringers, Lactated] 1,000 ml Med 12/09/17 16:15 Active IV ASDIRECTED Levothyroxine [Synthroid] Med 12/11/17 09:00 Ordered 100 mcg PO DAILY Ondansetron [Zofran] Med 12/10/17 09:45 Ordered 4 mg IVPUSH Q8H PRN Piperacillin/Tazobactam [Zosyn] 4.5 gm Med 12/10/17 00:00 Active Sodium Chloride 0.9% [Normal Saline] 100 ml IV Q8H Rosuvastatin [Crestor] Med 12/11/17 09:00 Ordered 5 mg PO DAILY Medication Administration Instruction [OM.PC] Routine Oth 12/09/17 12:10 Ordered Peripheral IV Insertion Adult [OM.PC] Routine Oth 12/09/17 12:10 Ordered Resuscitation Status Routine Resus Stat 12/09/17 18:21 Ordered Medication Orders Hydrocodone Bitart/Acetaminophen ([place] 325-5 Mg) 1 tab PO Q6H PRN PRN Reason: Pain Heparin Sodium (Porcine) (Heparin Sodium) 5,000 units SUBCUT Q12H [facility] Hydromorphone HCl (Dilaudid) 0.5 mg IVPUSH Q1H PRN PRN Reason: Pain Lactated Ringer's (Ringers, Lactated) 1,000 mls @ 125 mls/hr IV ASDIRECTED [facility] Last Admin: 12/09/17 20:21 Dose: 125 mls/hr Piperacillin Sod/Tazobactam (Sod 4.5 gm/ Sodium Chloride) 100 mls @ 25 mls/hr IV Q8H [facility] Last Admin: 12/10/17 08:23 Dose: 25 mls/hr Infusion: 12/10/17 03:31 Dose: 25 mls/hr Admin: 12/09/17 23:31 Dose: 25 mls/hr Levothyroxine Sodium (Synthroid) 100 mcg PO DAILY [facility] Ondansetron HCl (Zofran) 4 mg IVPUSH Q8H PRN PRN Reason: Nausea Rosuvastatin Calcium (Crestor) 5 mg PO DAILY [facility] - Plan Plan (Free Text/Narrative):: pt stable plan continue with present order and will begin to follow blood sugars, give albuterol and increase activity and give heparin for prophylaxis AISHWARYA
[2017-12-10] MEDS: Lactated Ringers 1,000 ML IV SCH (12:18)
[2017-12-10] MEDS: Acetaminophen/HYDROcodone 325-5 MG Tab PO PRN ×2 (12:20→18:13)
[2017-12-10] MEDS: Albuterol 0.083% 2.5 MG/3 ML Neb Soln NEB SCH ×2 (14:56→20:09)
[2017-12-10] MEDS: Heparin Sodium 5,000 Units/ML Vial SUBCUT SCH (18:13)
[2017-12-10] MEDS ORDERED: Magnesium Hydroxide 400 MG/5 ML Susp 30 ML Cup PO ONE (19:52)
[2017-12-10] MEDS: HYDROmorphone 0.5 MG/0.5 ML Syringe IVPUSH PRN (21:21)
[2017-12-11] MEDS: Acetaminophen/HYDROcodone 325-5 MG Tab PO PRN ×3 (00:42→21:24)
[2017-12-11] MEDS: Piperacillin/Tazobactam 4.5 GM in Sodium Chloride 0.9% 100 ML IV SCH ×4 (00:45→23:34)
[2017-12-11] MEDS: HYDROmorphone 0.5 MG/0.5 ML Syringe IVPUSH PRN ×3 (05:06→21:24)
[2017-12-11] MEDS: Heparin Sodium 5,000 Units/ML Vial SUBCUT SCH ×2 (05:07→17:02)
[2017-12-11] MEDS: Lactated Ringers 1,000 ML IV SCH (05:07)
[2017-12-11] MEDS: Albuterol 0.083% 2.5 MG/3 ML Neb Soln NEB SCH ×3 (05:16→20:29)
[2017-12-11] MEDS: Rosuvastatin 10 MG Tab PO SCH (08:24)
[2017-12-11] MEDS: Levothyroxine 100 MCG Tab PO SCH (08:25)
--- NOTE | 2017-12-11 11:53 | PCM.SURGPN ---
- General Info Date of Service: 12/11/17 (2) POD#: 2 Functional Status: Reports: Pain Controlled - Review of Systems General: Reports: No Symptoms Pulmonary: Reports: No Symptoms Cardiovascular: Reports: No Symptoms Gastrointestinal: Reports: Abdominal Pain (incisional pain imparoving) - Patient Data Vitals - Most Recent: Last Vital Signs Temp 98.2 F 12/11/17 08:00 Pulse 99 12/11/17 08:00 Resp 18 12/11/17 08:00 BP 116/71 12/11/17 08:00 Pulse Ox 91 L 12/11/17 08:00 Weight - Most Recent: 76.249 kg I&O - Last 24 Hours: Intake & Output 12/10/17 12/11/17 12/11/17 23:59 07:59 15:59 Intake Total 1310 850 60 Output Total 625 975 10 Balance 685 -125 50 Lab Results Last 24 Hrs: Laboratory Results - last 24 hr 12/10/17 12/10/17 12/10/17 Range/Units 12:26 17:00 21:58 WBC (3.98-10.04) K/mm3 RBC (3.98-5.22) M/mm3 Hgb (11.2-15.7) gm/L Hct (34.1-44.9) % MCV (79.4-94.8) fl MCH (25.6-32.2) pg MCHC (32.2-35.5) g/dl RDW Std Deviation (36.4-46.3) fL Plt Count (182-369) K/mm3 MPV (9.4-12.3) fl Neut % (Auto) (34.0-71.1) % Lymph % (Auto) (19.3-51.7) % [place] % (Auto) (4.7-12.5) % Eos % (Auto) (0.7-5.8) Baso % (Auto) (0.1-1.2) % Neut # (Auto) (1.56-6.13) K/mm3 Lymph # (Auto) (1.18-3.74) K/mm3 [place] # (Auto) (0.24-0.36) K/mm3 Eos # (Auto) (0.04-0.36) K/mm3 Baso # (Auto) (0.01-0.08) K/mm3 Manual Slide Review POC Glucose 124 H 119 H 145 H (80-115) mg/dL 12/11/17 12/11/17 12/11/17 Range/Units 06:23 06:45 10:51 WBC 11.20 H (3.98-10.04) K/mm3 RBC 3.29 L (3.98-5.22) M/mm3 Hgb 9.7 L (11.2-15.7) gm/L Hct 30.0 L (34.1-44.9) % MCV 91.2 (79.4-94.8) fl MCH 29.5 (25.6-32.2) pg MCHC 32.3 (32.2-35.5) g/dl RDW Std Deviation 44.4 (36.4-46.3) fL Plt Count 203 (182-369) K/mm3 MPV 9.3 L (9.4-12.3) fl Neut % (Auto) 81.3 H (34.0-71.1) % Lymph % (Auto) 7.5 L (19.3-51.7) % [place] % (Auto) 10.4 (4.7-12.5) % Eos % (Auto) 0.5 L (0.7-5.8) Baso % (Auto) 0.1 (0.1-1.2) % Neut # (Auto) 9.11 H (1.56-6.13) K/mm3 Lymph # (Auto) 0.84 L (1.18-3.74) K/mm3 [place] # (Auto) 1.16 H (0.24-0.36) K/mm3 Eos # (Auto) 0.06 (0.04-0.36) K/mm3 Baso # (Auto) 0.01 (0.01-0.08) K/mm3 Manual Slide Review Abnormal smear POC Glucose 128 H 170 H (80-115) mg/dL Med Orders - Current: Current Medications Hydrocodone Bitart/Acetaminophen ([place] 325-5 Mg) 1 tab PO Q6H PRN PRN Reason: Pain Last Admin: 12/11/17 09:15 Dose: 1 tab Albuterol (Proventil Neb Soln) 2.5 mg NEB Q8HRRT [facility] Last Admin: 12/11/17 05:16 Dose: 2.5 mg Heparin Sodium (Porcine) (Heparin Sodium) 5,000 units SUBCUT Q12H [facility] Last Admin: 12/11/17 05:07 Dose: 5,000 units Hydromorphone HCl (Dilaudid) 0.5 mg IVPUSH Q1H PRN PRN Reason: Pain Last Admin: 12/11/17 05:06 Dose: 0.5 mg Piperacillin Sod/Tazobactam (Sod 4.5 gm/ Sodium Chloride) 100 mls @ 25 mls/hr IV Q8H [facility] Last Admin: 12/11/17 08:26 Dose: 25 mls/hr Lactated Ringer's (Ringers, Lactated) 1,000 mls @ 75 mls/hr IV ASDIRECTED [facility] Last Admin: 12/11/17 05:07 Dose: 75 mls/hr Levothyroxine Sodium (Synthroid) 100 mcg PO DAILY [facility] Last Admin: 12/11/17 08:25 Dose: 100 mcg Ondansetron HCl (Zofran) 4 mg IVPUSH Q8H PRN PRN Reason: Nausea Rosuvastatin Calcium (Crestor) 5 mg PO DAILY [facility] Last Admin: 12/11/17 08:24 Dose: 5 mg Discontinued Medications Albuterol/Ipratropium (Duoneb 3.0-0.5 Mg/3 Ml) 3 ml NEB ONETIME ONE Stop: 12/09/17 14:39 Last Admin: 12/09/17 18:54 Dose: Not Given Bupivacaine HCl (Marcaine 0.5%) Confirm Administered Dose 30 ml .ROUTE .STK-MED ONE Stop: 12/09/17 13:05 Last Admin: 12/09/17 14:17 Dose: 5 ml Fentanyl (Sublimaze) Confirm Administered Dose 250 mcg .ROUTE .STK-MED ONE Stop: 12/09/17 13:04 Fentanyl (Sublimaze) 50 mcg IVPUSH Q5M PRN PRN Reason: Pain Stop: 12/09/17 18:00 Last Admin: 12/09/17 16:22 Dose: 50 mcg Glycopyrrolate () Confirm Administered Dose 1 mg .ROUTE .STK-MED ONE Stop: 12/09/17 15:50 Hydromorphone HCl (Dilaudid) 0.5 mg IVPUSH Q15M PRN PRN Reason: Pain Stop: 12/09/17 20:00 Last Admin: 12/09/17 16:27 Dose: 0.5 mg Hydromorphone HCl (Dilaudid) Confirm Administered Dose 0.5 mg .ROUTE .STK-MED ONE Stop: 12/09/17 15:55 Hydromorphone HCl (Dilaudid) 0.5 mg IVPUSH ONETIME PRN PRN Reason: Pain Hydromorphone HCl (Dilaudid) 0.5 mg IVPUSH Q1H PRN PRN Reason: Pain Last Admin: 12/10/17 04:08 Dose: 0.5 mg Lactated Ringer's (Ringers, Lactated) 1,000 mls @ 125 mls/hr IV ASDIRECTED [facility] Stop: 12/09/17 23:00 Last Admin: 12/09/17 12:12 Dose: 125 mls/hr Ampicillin Sodium/Sulbactam (Sodium 3 gm/ Sodium Chloride) 100 mls @ 200 mls/ hr IV ONETIME ONE Stop: 12/09/17 12:59 Last Admin: 12/09/17 20:55 Dose: Not Given Lidocaine HCl (Xylocaine-Mpf 1%) Confirm Administered Dose 5 mls @ as directed .ROUTE .STK-MED ONE Stop: 12/09/17 13:04 Lactated Ringer's (Ringers, Lactated) Confirm Administered Dose 1,000 mls @ as directed .ROUTE .STK-MED ONE Stop: 12/09/17 14:29 Piperacillin Sod/Tazobactam (Sod 4.5 gm/ Sodium Chloride) 100 mls @ 200 mls/hr IV ONETIME ONE Stop: 12/09/17 15:29 Last Admin: 12/09/17 17:09 Dose: 200 mls/hr Lactated Ringer's (Ringers, Lactated) 1,000 mls @ 125 mls/hr IV ASDIRECTED [facility] Last Admin: 12/10/17 12:18 Dose: 125 mls/hr Piperacillin Sod/Tazobactam (Sod 4.5 gm/ Sodium Chloride) 100 mls @ 200 mls/hr IV ONETIME ONE Stop: 12/09/17 16:59 Last Admin: 12/09/17 17:33 Dose: Not Given Iopamidol (Isovue-300 (61%)) Confirm Administered Dose 50 ml .ROUTE .STK-MED ONE Stop: 12/09/17 13:05 Ketorolac Tromethamine (Toradol) 30 mg IVPUSH Q6H PRN PRN Reason: Pain Last Admin: 12/10/17 08:45 Dose: 30 mg Lidocaine/Sodium Bicarbonate (Buffered Lidocaine 1% In Ns 8.4%) 0.25 ml IDERM ONETIME PRN PRN Reason: Prior to IV Start Stop: 12/09/17 18:00 Last Admin: 12/09/17 12:11 Dose: 0.25 ml Magnesium Hydroxide (Milk Of Magnesia) 30 ml PO ONETIME ONE Stop: 12/10/17 19:53 Last Admin: 12/10/17 21:01 Dose: 30 ml Meperidine HCl (Meperidine) 12.5 mg IVPUSH ONETIME PRN PRN Reason: Shivering Stop: 12/09/17 18:00 Midazolam HCl (Versed 1 Mg/Ml) Confirm Administered Dose 2 mg .ROUTE .STK-MED ONE Stop: 12/09/17 13:04 Neostigmine Methylsulfate (Neostigmine) Confirm Administered Dose 5 mg .ROUTE .STK-MED ONE Stop: 12/09/17 15:50 Phenylephrine HCl (Phenylephrine In Ns 100 Mcg/Ml) Confirm Administered Dose 1 mg .ROUTE .STK-MED ONE Stop: 12/09/17 15:25 Propofol (Diprivan 20 Ml) Confirm Administered Dose 200 mg .ROUTE .STK-MED ONE Stop: 12/09/17 13:04 Rocuronium [place] (Zemuron) Confirm Administered Dose 50 mg .ROUTE .STK-MED ONE Stop: 12/09/17 13:04 Rocuronium [place] (Zemuron) Confirm Administered Dose 50 mg .ROUTE .STK-MED ONE Stop: 12/09/17 14:58 Sodium Chloride (Saline Flush) 10 ml FLUSH ASDIRECTED PRN PRN Reason: Keep Vein Open Stop: 12/09/17 18:00 Sodium Chloride (Normal Saline) Confirm Administered Dose 50 ml .ROUTE .STK-MED ONE Stop: 12/09/17 13:05 - Exam Wound/Incisions: Healing Well General: Alert, Oriented Lungs: Rales, Other (saturations 90%) Cardiovascular: Tachycardia GI/Abdominal Exam: Abnormal Bowel Sounds (quiet) - Problem List Review Problem List Initiated/Reviewed/Updated: Yes - My Orders Last 24 Hours: Active Orders 24 hr Category Date Time Status Clear Liquid Diet [DIET] Diet 12/10/17 Lunch Active CBC W/O DIFF,HEMOGRAM [HEME] MOTH@0700 Lab 12/14/17 07:00 Ordered CBC W/O DIFF,HEMOGRAM [HEME] MOTH@0700 Lab 12/17/17 07:00 Ordered CBC W/O DIFF,HEMOGRAM [HEME] MOTH@0700 Lab 12/21/17 07:00 Ordered CBC W/O DIFF,HEMOGRAM [HEME] MOTH@0700 Lab 12/24/17 07:00 Ordered CBC W/O DIFF,HEMOGRAM [HEME] MOTH@0700 Lab 12/28/17 07:00 Ordered CBC W/O DIFF,HEMOGRAM [HEME] MOTH@0700 Lab 12/31/17 07:00 Ordered Albuterol [Proventil Neb Soln] Med 12/10/17 14:00 Active 2.5 mg NEB Q8HRRT Heparin Sodium Med 12/10/17 18:00 Active 5,000 units SUBCUT Q12H Lactated Ringers [Ringers, Lactated] 1,000 ml Med 12/10/17 19:15 Active IV ASDIRECTED Levothyroxine [Synthroid] Med 12/11/17 09:00 Active 100 mcg PO DAILY Rosuvastatin [Crestor] Med 12/11/17 09:00 Active 5 mg PO DAILY Medication Orders Hydrocodone Bitart/Acetaminophen ([place] 325-5 Mg) 1 tab PO Q6H PRN PRN Reason: Pain Last Admin: 12/11/17 09:15 Dose: 1 tab Admin: 12/11/17 00:42 Dose: 1 tab Admin: 12/10/17 18:13 Dose: 1 tab Admin: 12/10/17 12:20 Dose: 1 tab Albuterol (Proventil Neb Soln) 2.5 mg NEB Q8HRRT [facility] Last Admin: 12/11/17 05:16 Dose: 2.5 mg Admin: 12/10/17 20:09 Dose: 2.5 mg Admin: 12/10/17 14:56 Dose: 2.5 mg Heparin Sodium (Porcine) (Heparin Sodium) 5,000 units SUBCUT Q12H [facility] Last Admin: 12/11/17 05:07 Dose: 5,000 units Admin: 12/10/17 18:13 Dose: 5,000 units Hydromorphone HCl (Dilaudid) 0.5 mg IVPUSH Q1H PRN PRN Reason: Pain Last Admin: 12/11/17 05:06 Dose: 0.5 mg Admin: 12/10/17 21:21 Dose: 0.5 mg Piperacillin Sod/Tazobactam (Sod 4.5 gm/ Sodium Chloride) 100 mls @ 25 mls/hr IV Q8H [facility] Last Admin: 12/11/17 08:26 Dose: 25 mls/hr Infusion: 12/11/17 04:45 Dose: 25 mls/hr Admin: 12/11/17 00:45 Dose: 25 mls/hr Infusion: 12/10/17 19:46 Dose: 25 mls/hr Admin: 12/10/17 15:46 Dose: 25 mls/hr Infusion: 12/10/17 12:23 Dose: 25 mls/hr Admin: 12/10/17 08:23 Dose: 25 mls/hr Infusion: 12/10/17 03:31 Dose: 25 mls/hr Admin: 12/09/17 23:31 Dose: 25 mls/hr Lactated Ringer's (Ringers, Lactated) 1,000 mls @ 75 mls/hr IV ASDIRECTED [facility] Last Admin: 12/11/17 05:07 Dose: 75 mls/hr Levothyroxine Sodium (Synthroid) 100 mcg PO DAILY [facility] Last Admin: 12/11/17 08:25 Dose: 100 mcg Ondansetron HCl (Zofran) 4 mg IVPUSH Q8H PRN PRN Reason: Nausea Rosuvastatin Calcium (Crestor) 5 mg PO DAILY [facility] Last Admin: 12/11/17 08:24 Dose: 5 mg - Plan Plan (Free Text/Narrative):: stable GI function not yet returned and fluid in lungs noted still needs to diurese plan continue with present RX and will replace the O2 at two L B
[2017-12-12] MEDS: Lactated Ringers 1,000 ML IV SCH (04:15)
[2017-12-12] MEDS: Acetaminophen/HYDROcodone 325-5 MG Tab PO PRN ×4 (04:17→21:39)
[2017-12-12] MEDS: Albuterol 0.083% 2.5 MG/3 ML Neb Soln NEB SCH ×3 (06:31→20:22)
[2017-12-12] MEDS: Heparin Sodium 5,000 Units/ML Vial SUBCUT SCH ×2 (07:02→17:04)
[2017-12-12] MEDS: Piperacillin/Tazobactam 4.5 GM in Sodium Chloride 0.9% 100 ML IV SCH ×3 (09:07→23:23)
[2017-12-12] MEDS: Levothyroxine 100 MCG Tab PO SCH (09:08)
[2017-12-12] MEDS: Rosuvastatin 10 MG Tab PO SCH (09:09)
--- NOTE | 2017-12-12 09:09 | PCM.SURGPN ---
- General Info Date of Service: 12/12/17 POD#: 3 Functional Status: Reports: Pain Controlled - Review of Systems General: Reports: No Symptoms Pulmonary: Reports: No Symptoms Cardiovascular: Reports: No Symptoms Gastrointestinal: Reports: No Symptoms - Patient Data Vitals - Most Recent: Last Vital Signs Temp 99.5 F 12/12/17 04:27 Pulse 83 12/12/17 04:27 Resp 12 12/12/17 04:27 BP 123/66 12/12/17 04:27 Pulse Ox 92 L 12/12/17 08:40 Weight - Most Recent: 76.793 kg I&O - Last 24 Hours: Intake & Output 12/11/17 12/12/17 12/12/17 23:59 07:59 15:59 Intake Total 1138 1750 Output Total 900 2160 Balance 238 -410 Lab Results Last 24 Hrs: Laboratory Results - last 24 hr 12/11/17 12/11/17 12/11/17 Range/Units 10:51 16:58 21:16 POC Glucose 170 H 109 117 H (80-115) mg/dL 12/12/17 Range/Units 06:45 POC Glucose 95 (80-115) mg/dL Med Orders - Current: Current Medications Hydrocodone Bitart/Acetaminophen ([place] 325-5 Mg) 1 tab PO Q6H PRN PRN Reason: Pain Last Admin: 12/12/17 04:17 Dose: 1 tab Albuterol (Proventil Neb Soln) 2.5 mg NEB Q8HRRT [facility] Last Admin: 12/12/17 06:31 Dose: 2.5 mg Heparin Sodium (Porcine) (Heparin Sodium) 5,000 units SUBCUT Q12H [facility] Last Admin: 12/12/17 07:02 Dose: 5,000 units Hydromorphone HCl (Dilaudid) 0.5 mg IVPUSH Q1H PRN PRN Reason: Pain Last Admin: 12/11/17 21:24 Dose: 0.5 mg Piperacillin Sod/Tazobactam (Sod 4.5 gm/ Sodium Chloride) 100 mls @ 25 mls/hr IV Q8H [facility] Last Admin: 12/12/17 09:07 Dose: 25 mls/hr Lactated Ringer's (Ringers, Lactated) 1,000 mls @ 75 mls/hr IV ASDIRECTED [facility] Last Admin: 12/12/17 04:15 Dose: 75 mls/hr Levothyroxine Sodium (Synthroid) 100 mcg PO DAILY [facility] Last Admin: 12/11/17 08:25 Dose: 100 mcg Ondansetron HCl (Zofran) 4 mg IVPUSH Q8H PRN PRN Reason: Nausea Rosuvastatin Calcium (Crestor) 5 mg PO DAILY [facility] Last Admin: 12/11/17 08:24 Dose: 5 mg Discontinued Medications Albuterol/Ipratropium (Duoneb 3.0-0.5 Mg/3 Ml) 3 ml NEB ONETIME ONE Stop: 12/09/17 14:39 Last Admin: 12/09/17 18:54 Dose: Not Given Bupivacaine HCl (Marcaine 0.5%) Confirm Administered Dose 30 ml .ROUTE .STK-MED ONE Stop: 12/09/17 13:05 Last Admin: 12/09/17 14:17 Dose: 5 ml Fentanyl (Sublimaze) Confirm Administered Dose 250 mcg .ROUTE .STK-MED ONE Stop: 12/09/17 13:04 Fentanyl (Sublimaze) 50 mcg IVPUSH Q5M PRN PRN Reason: Pain Stop: 12/09/17 18:00 Last Admin: 12/09/17 16:22 Dose: 50 mcg Glycopyrrolate () Confirm Administered Dose 1 mg .ROUTE .STK-MED ONE Stop: 12/09/17 15:50 Hydromorphone HCl (Dilaudid) 0.5 mg IVPUSH Q15M PRN PRN Reason: Pain Stop: 12/09/17 20:00 Last Admin: 12/09/17 16:27 Dose: 0.5 mg Hydromorphone HCl (Dilaudid) Confirm Administered Dose 0.5 mg .ROUTE .STK-MED ONE Stop: 12/09/17 15:55 Hydromorphone HCl (Dilaudid) 0.5 mg IVPUSH ONETIME PRN PRN Reason: Pain Hydromorphone HCl (Dilaudid) 0.5 mg IVPUSH Q1H PRN PRN Reason: Pain Last Admin: 12/10/17 04:08 Dose: 0.5 mg Lactated Ringer's (Ringers, Lactated) 1,000 mls @ 125 mls/hr IV ASDIRECTED [facility] Stop: 12/09/17 23:00 Last Admin: 12/09/17 12:12 Dose: 125 mls/hr Ampicillin Sodium/Sulbactam (Sodium 3 gm/ Sodium Chloride) 100 mls @ 200 mls/ hr IV ONETIME ONE Stop: 12/09/17 12:59 Last Admin: 12/09/17 20:55 Dose: Not Given Lidocaine HCl (Xylocaine-Mpf 1%) Confirm Administered Dose 5 mls @ as directed .ROUTE .STK-MED ONE Stop: 12/09/17 13:04 Lactated Ringer's (Ringers, Lactated) Confirm Administered Dose 1,000 mls @ as directed .ROUTE .STK-MED ONE Stop: 12/09/17 14:29 Piperacillin Sod/Tazobactam (Sod 4.5 gm/ Sodium Chloride) 100 mls @ 200 mls/hr IV ONETIME ONE Stop: 12/09/17 15:29 Last Admin: 12/09/17 17:09 Dose: 200 mls/hr Lactated Ringer's (Ringers, Lactated) 1,000 mls @ 125 mls/hr IV ASDIRECTED [facility] Last Admin: 12/10/17 12:18 Dose: 125 mls/hr Piperacillin Sod/Tazobactam (Sod 4.5 gm/ Sodium Chloride) 100 mls @ 200 mls/hr IV ONETIME ONE Stop: 12/09/17 16:59 Last Admin: 12/09/17 17:33 Dose: Not Given Iopamidol (Isovue-300 (61%)) Confirm Administered Dose 50 ml .ROUTE .STK-MED ONE Stop: 12/09/17 13:05 Ketorolac Tromethamine (Toradol) 30 mg IVPUSH Q6H PRN PRN Reason: Pain Last Admin: 12/10/17 08:45 Dose: 30 mg Lidocaine/Sodium Bicarbonate (Buffered Lidocaine 1% In Ns 8.4%) 0.25 ml IDERM ONETIME PRN PRN Reason: Prior to IV Start Stop: 12/09/17 18:00 Last Admin: 12/09/17 12:11 Dose: 0.25 ml Magnesium Hydroxide (Milk Of Magnesia) 30 ml PO ONETIME ONE Stop: 12/10/17 19:53 Last Admin: 12/10/17 21:01 Dose: 30 ml Meperidine HCl (Meperidine) 12.5 mg IVPUSH ONETIME PRN PRN Reason: Shivering Stop: 12/09/17 18:00 Midazolam HCl (Versed 1 Mg/Ml) Confirm Administered Dose 2 mg .ROUTE .STK-MED ONE Stop: 12/09/17 13:04 Neostigmine Methylsulfate (Neostigmine) Confirm Administered Dose 5 mg .ROUTE .STK-MED ONE Stop: 12/09/17 15:50 Phenylephrine HCl (Phenylephrine In Ns 100 Mcg/Ml) Confirm Administered Dose 1 mg .ROUTE .STK-MED ONE Stop: 12/09/17 15:25 Propofol (Diprivan 20 Ml) Confirm Administered Dose 200 mg .ROUTE .STK-MED ONE Stop: 12/09/17 13:04 Rocuronium [place] (Zemuron) Confirm Administered Dose 50 mg .ROUTE .STK-MED ONE Stop: 12/09/17 13:04 Rocuronium [place] (Zemuron) Confirm Administered Dose 50 mg .ROUTE .STK-MED ONE Stop: 12/09/17 14:58 Sodium Chloride (Saline Flush) 10 ml FLUSH ASDIRECTED PRN PRN Reason: Keep Vein Open Stop: 12/09/17 18:00 Sodium Chloride (Normal Saline) Confirm Administered Dose 50 ml .ROUTE .STK-MED ONE Stop: 12/09/17 13:05 - Exam General: Alert, Oriented Lungs: Clear to Auscultation, Normal Respiratory Effort GI/Abdominal Exam: Normal Bowel Sounds, Soft, Non-Tender, No Organomegaly, No Distention, No Abnormal Bruit, No Mass, Pelvis Stable - Problem List Review Problem List Initiated/Reviewed/Updated: Yes - My Orders Last 24 Hours: Active Orders 24 hr Category Date Time Status Oxygen Therapy [RC] ASDIRECTED Care 12/11/17 11:51 Active ADA Diabetic [[place] [employer] Diet] [DIET Diet 12/12/17 Lunch Active ] CBC W/O DIFF,HEMOGRAM [HEME] MOTH@0700 Lab 12/14/17 07:00 Ordered CBC W/O DIFF,HEMOGRAM [HEME] MOTH@0700 Lab 12/17/17 07:00 Ordered CBC W/O DIFF,HEMOGRAM [HEME] MOTH@0700 Lab 12/21/17 07:00 Ordered CBC W/O DIFF,HEMOGRAM [HEME] MOTH@0700 Lab 12/24/17 07:00 Ordered CBC W/O DIFF,HEMOGRAM [HEME] MOTH@0700 Lab 12/28/17 07:00 Ordered CBC W/O DIFF,HEMOGRAM [HEME] MOTH@0700 Lab 12/31/17 07:00 Ordered Levothyroxine [Synthroid] Med 12/11/17 09:00 Active 100 mcg PO DAILY Rosuvastatin [Crestor] Med 12/11/17 09:00 Active 5 mg PO DAILY Medication Orders Hydrocodone Bitart/Acetaminophen ([place] 325-5 Mg) 1 tab PO Q6H PRN PRN Reason: Pain Last Admin: 12/12/17 04:17 Dose: 1 tab Admin: 12/11/17 21:24 Dose: 1 tab Admin: 12/11/17 09:15 Dose: 1 tab Admin: 12/11/17 00:42 Dose: 1 tab Admin: 12/10/17 18:13 Dose: 1 tab Admin: 12/10/17 12:20 Dose: 1 tab Albuterol (Proventil Neb Soln) 2.5 mg NEB Q8HRRT [facility] Last Admin: 12/12/17 06:31 Dose: 2.5 mg Admin: 12/11/17 20:29 Dose: 2.5 mg Admin: 12/11/17 13:01 Dose: 2.5 mg Admin: 12/11/17 05:16 Dose: 2.5 mg Admin: 12/10/17 20:09 Dose: 2.5 mg Admin: 12/10/17 14:56 Dose: 2.5 mg Heparin Sodium (Porcine) (Heparin Sodium) 5,000 units SUBCUT Q12H [facility] Last Admin: 12/12/17 07:02 Dose: 5,000 units Admin: 12/11/17 17:02 Dose: 5,000 units Admin: 12/11/17 05:07 Dose: 5,000 units Admin: 12/10/17 18:13 Dose: 5,000 units Hydromorphone HCl (Dilaudid) 0.5 mg IVPUSH Q1H PRN PRN Reason: Pain Last Admin: 12/11/17 21:24 Dose: 0.5 mg Admin: 12/11/17 13:36 Dose: 0.5 mg Admin: 12/11/17 05:06 Dose: 0.5 mg Admin: 12/10/17 21:21 Dose: 0.5 mg Piperacillin Sod/Tazobactam (Sod 4.5 gm/ Sodium Chloride) 100 mls @ 25 mls/hr IV Q8H [facility] Last Admin: 12/12/17 09:07 Dose: 25 mls/hr Infusion: 12/12/17 03:34 Dose: 25 mls/hr Admin: 12/11/17 23:34 Dose: 25 mls/hr Infusion: 12/11/17 21:02 Dose: 25 mls/hr Admin: 12/11/17 17:02 Dose: 25 mls/hr Infusion: 12/11/17 12:26 Dose: 25 mls/hr Admin: 12/11/17 08:26 Dose: 25 mls/hr Infusion: 12/11/17 04:45 Dose: 25 mls/hr Admin: 12/11/17 00:45 Dose: 25 mls/hr Infusion: 12/10/17 19:46 Dose: 25 mls/hr Admin: 12/10/17 15:46 Dose: 25 mls/hr Infusion: 12/10/17 12:23 Dose: 25 mls/hr Admin: 12/10/17 08:23 Dose: 25 mls/hr Infusion: 12/10/17 03:31 Dose: 25 mls/hr Admin: 12/09/17 23:31 Dose: 25 mls/hr Lactated Ringer's (Ringers, Lactated) 1,000 mls @ 75 mls/hr IV ASDIRECTED [facility] Last Admin: 12/12/17 04:15 Dose: 75 mls/hr Infusion: 12/11/17 18:27 Dose: 75 mls/hr Admin: 12/11/17 05:07 Dose: 75 mls/hr Levothyroxine Sodium (Synthroid) 100 mcg PO DAILY [facility] Last Admin: 12/11/17 08:25 Dose: 100 mcg Ondansetron HCl (Zofran) 4 mg IVPUSH Q8H PRN PRN Reason: Nausea Rosuvastatin Calcium (Crestor) 5 mg PO DAILY [facility] Last Admin: 12/11/17 08:24 Dose: 5 mg - Plan Plan (Free Text/Narrative):: doing much better ass improved plan continue IV antibiotic and start diabetic diet, metformin and dc IV fluid and advance KADIE drain JMB
[2017-12-12] MEDS ORDERED: metFORMIN 500 MG Tab PO SCH ×2 (11:00→21:00)
[2017-12-12] MEDS: Docusate Sodium 100 MG Cap PO SCH (20:40)
[2017-12-13] MEDS: Acetaminophen/HYDROcodone 325-5 MG Tab PO PRN (06:15)
[2017-12-13] MEDS: Heparin Sodium 5,000 Units/ML Vial SUBCUT SCH (06:16)
[2017-12-13] MEDS: Albuterol 0.083% 2.5 MG/3 ML Neb Soln NEB SCH ×2 (06:28→13:06)
[2017-12-13] MEDS: Docusate Sodium 100 MG Cap PO SCH (08:15)
[2017-12-13] MEDS: Rosuvastatin 10 MG Tab PO SCH (08:15)
[2017-12-13] MEDS: Levothyroxine 100 MCG Tab PO SCH (08:16)
[2017-12-13] MEDS: Piperacillin/Tazobactam 4.5 GM in Sodium Chloride 0.9% 100 ML IV SCH (08:17)
[2017-12-13 11:57] VITALS: BP 134/80
[2017-12-13] MEDS: HYDROmorphone 0.5 MG/0.5 ML Syringe IVPUSH PRN (12:46)
--- NOTE | 2017-12-13 12:58 | PCM.SURGPN ---
- General Info Date of Service: 12/13/17 POD#: 4 - Patient Data Vitals - Most Recent: Last Vital Signs Temp 98.1 F 12/13/17 11:29 Pulse 68 12/13/17 11:29 Resp 16 12/13/17 11:29 BP 134/80 12/13/17 11:29 Pulse Ox 93 L 12/13/17 11:29 Weight - Most Recent: 76.657 kg I&O - Last 24 Hours: Intake & Output 12/12/17 12/13/17 12/13/17 23:59 07:59 15:59 Intake Total 1100 1200 120 Output Total 2050 1350 Balance -950 -150 120 Lab Results Last 24 Hrs: Laboratory Results - last 24 hr 12/12/17 12/12/17 12/13/17 Range/Units 17:15 20:31 06:14 POC Glucose 100 135 H 101 (80-115) mg/dL 12/13/17 Range/Units 11:11 POC Glucose 118 H (80-115) mg/dL Med Orders - Current: Current Medications Hydrocodone Bitart/Acetaminophen ([place] 325-5 Mg) 1 tab PO Q6H PRN PRN Reason: Pain Last Admin: 12/13/17 06:15 Dose: 1 tab Albuterol (Proventil Neb Soln) 2.5 mg NEB Q8HRRT [facility] Last Admin: 12/13/17 06:28 Dose: 2.5 mg Docusate Sodium (Colace) 100 mg PO BID [facility] Last Admin: 12/13/17 08:15 Dose: 100 mg Heparin Sodium (Porcine) (Heparin Sodium) 5,000 units SUBCUT Q12H [facility] Last Admin: 12/13/17 06:16 Dose: 5,000 units Hydromorphone HCl (Dilaudid) 0.5 mg IVPUSH Q1H PRN PRN Reason: Pain Last Admin: 12/13/17 12:46 Dose: 0.5 mg Piperacillin Sod/Tazobactam (Sod 4.5 gm/ Sodium Chloride) 100 mls @ 25 mls/hr IV Q8H [facility] Last Admin: 12/13/17 08:17 Dose: 25 mls/hr Levothyroxine Sodium (Synthroid) 100 mcg PO DAILY [facility] Last Admin: 12/13/17 08:16 Dose: 100 mcg Metformin HCl (Glucophage) 750 mg PO BEDTIME [facility] Last Admin: 12/12/17 20:41 Dose: 750 mg Ondansetron HCl (Zofran) 4 mg IVPUSH Q8H PRN PRN Reason: Nausea Rosuvastatin Calcium (Crestor) 5 mg PO DAILY [facility] Last Admin: 12/13/17 08:15 Dose: 5 mg Discontinued Medications Albuterol/Ipratropium (Duoneb 3.0-0.5 Mg/3 Ml) 3 ml NEB ONETIME ONE Stop: 12/09/17 14:39 Last Admin: 12/09/17 18:54 Dose: Not Given Bupivacaine HCl (Marcaine 0.5%) Confirm Administered Dose 30 ml .ROUTE .STK-MED ONE Stop: 12/09/17 13:05 Last Admin: 12/09/17 14:17 Dose: 5 ml Fentanyl (Sublimaze) Confirm Administered Dose 250 mcg .ROUTE .STK-MED ONE Stop: 12/09/17 13:04 Fentanyl (Sublimaze) 50 mcg IVPUSH Q5M PRN PRN Reason: Pain Stop: 12/09/17 18:00 Last Admin: 12/09/17 16:22 Dose: 50 mcg Glycopyrrolate () Confirm Administered Dose 1 mg .ROUTE .STK-MED ONE Stop: 12/09/17 15:50 Hydromorphone HCl (Dilaudid) 0.5 mg IVPUSH Q15M PRN PRN Reason: Pain Stop: 12/09/17 20:00 Last Admin: 12/09/17 16:27 Dose: 0.5 mg Hydromorphone HCl (Dilaudid) Confirm Administered Dose 0.5 mg .ROUTE .STK-MED ONE Stop: 12/09/17 15:55 Hydromorphone HCl (Dilaudid) 0.5 mg IVPUSH ONETIME PRN PRN Reason: Pain Hydromorphone HCl (Dilaudid) 0.5 mg IVPUSH Q1H PRN PRN Reason: Pain Last Admin: 12/10/17 04:08 Dose: 0.5 mg Lactated Ringer's (Ringers, Lactated) 1,000 mls @ 125 mls/hr IV ASDIRECTED [facility] Stop: 12/09/17 23:00 Last Admin: 12/09/17 12:12 Dose: 125 mls/hr Ampicillin Sodium/Sulbactam (Sodium 3 gm/ Sodium Chloride) 100 mls @ 200 mls/ hr IV ONETIME ONE Stop: 12/09/17 12:59 Last Admin: 12/09/17 20:55 Dose: Not Given Lidocaine HCl (Xylocaine-Mpf 1%) Confirm Administered Dose 5 mls @ as directed .ROUTE .STK-MED ONE Stop: 12/09/17 13:04 Lactated Ringer's (Ringers, Lactated) Confirm Administered Dose 1,000 mls @ as directed .ROUTE .STK-MED ONE Stop: 12/09/17 14:29 Piperacillin Sod/Tazobactam (Sod 4.5 gm/ Sodium Chloride) 100 mls @ 200 mls/hr IV ONETIME ONE Stop: 12/09/17 15:29 Last Admin: 12/09/17 17:09 Dose: 200 mls/hr Lactated Ringer's (Ringers, Lactated) 1,000 mls @ 125 mls/hr IV ASDIRECTED [facility] Last Admin: 12/10/17 12:18 Dose: 125 mls/hr Piperacillin Sod/Tazobactam (Sod 4.5 gm/ Sodium Chloride) 100 mls @ 200 mls/hr IV ONETIME ONE Stop: 12/09/17 16:59 Last Admin: 12/09/17 17:33 Dose: Not Given Lactated Ringer's (Ringers, Lactated) 1,000 mls [facility] Last Admin: 12/12/17 04:15 Dose: 75 mls/hr Iopamidol (Isovue-300 (61%)) Confirm Administered Dose 50 ml .ROUTE .STK-MED ONE Stop: 12/09/17 13:05 Ketorolac Tromethamine (Toradol) 30 mg IVPUSH Q6H PRN PRN Reason: Pain Last Admin: 12/10/17 08:45 Dose: 30 mg Lidocaine/Sodium Bicarbonate (Buffered Lidocaine 1% In Ns 8.4%) 0.25 ml IDERM ONETIME PRN PRN Reason: Prior to IV Start Stop: 12/09/17 18:00 Last Admin: 12/09/17 12:11 Dose: 0.25 ml Magnesium Hydroxide (Milk Of Magnesia) 30 ml PO ONETIME ONE Stop: 12/10/17 19:53 Last Admin: 12/10/17 21:01 Dose: 30 ml Meperidine HCl (Meperidine) 12.5 mg IVPUSH ONETIME PRN PRN Reason: Shivering Stop: 12/09/17 18:00 Metformin HCl (Glucophage) 250 mg PO TIDMEALS [facility] Midazolam HCl (Versed 1 Mg/Ml) Confirm Administered Dose 2 mg .ROUTE .STK-MED ONE Stop: 12/09/17 13:04 Neostigmine Methylsulfate (Neostigmine) Confirm Administered Dose 5 mg .ROUTE .STK-MED ONE Stop: 12/09/17 15:50 Phenylephrine HCl (Phenylephrine In Ns 100 Mcg/Ml) Confirm Administered Dose 1 mg .ROUTE .STK-MED ONE Stop: 12/09/17 15:25 Propofol (Diprivan 20 Ml) Confirm Administered Dose 200 mg .ROUTE .STK-MED ONE Stop: 12/09/17 13:04 Rocuronium [place] (Zemuron) Confirm Administered Dose 50 mg .ROUTE .STK-MED ONE Stop: 12/09/17 13:04 Rocuronium [place] (Zemuron) Confirm Administered Dose 50 mg .ROUTE .STK-MED ONE Stop: 12/09/17 14:58 Sodium Chloride (Saline Flush) 10 ml FLUSH ASDIRECTED PRN PRN Reason: Keep Vein Open Stop: 12/09/17 18:00 Sodium Chloride (Normal Saline) Confirm Administered Dose 50 ml .ROUTE .STK-MED ONE Stop: 12/09/17 13:05 - Problem List Review Problem List Initiated/Reviewed/Updated: Yes - My Orders Last 24 Hours: Active Orders 24 hr Category Date Time Status CBC W/O DIFF,HEMOGRAM [HEME] MOTH@0700 Lab 12/14/17 07:00 Ordered CBC W/O DIFF,HEMOGRAM [HEME] MOTH@07 Lab 12/17/17 07:00 Ordered CBC W/O DIFF,HEMOGRAM [HEME] MOTH@0700 Lab 12/21/17 07:00 Ordered CBC W/O DIFF,HEMOGRAM [HEME] MOTH@0700 Lab 12/24/17 07:00 Ordered CBC W/O DIFF,HEMOGRAM [HEME] MOTH@0700 Lab 12/28/17 07:00 Ordered CBC W/O DIFF,HEMOGRAM [HEME] MOTH@07 Lab 12/31/17 07:00 Ordered Docusate Sodium [Colace] Med 12/12/17 21:00 Active 100 mg PO BID metFORMIN [Glucophage] Med 12/12/17 21:00 Active 750 mg PO BEDTIME Medication Orders Hydrocodone Bitart/Acetaminophen ([place] 325-5 Mg) 1 tab PO Q6H PRN PRN Reason: Pain Last Admin: 12/13/17 06:15 Dose: 1 tab Admin: 12/12/17 21:39 Dose: 1 tab Admin: 12/12/17 15:56 Dose: 1 tab Admin: 12/12/17 10:07 Dose: 1 tab Admin: 12/12/17 04:17 Dose: 1 tab Admin: 12/11/17 21:24 Dose: 1 tab Admin: 12/11/17 09:15 Dose: 1 tab Admin: 12/11/17 00:42 Dose: 1 tab Admin: 12/10/17 18:13 Dose: 1 tab Admin: 12/10/17 12:20 Dose: 1 tab Albuterol (Proventil Neb Soln) 2.5 mg NEB Q8HRRT [facility] Last Admin: 12/13/17 06:28 Dose: 2.5 mg Admin: 12/12/17 20:22 Dose: 2.5 mg Admin: 12/12/17 14:03 Dose: 2.5 mg Admin: 12/12/17 06:31 Dose: 2.5 mg Admin: 12/11/17 20:29 Dose: 2.5 mg Admin: 12/11/17 13:01 Dose: 2.5 mg Admin: 12/11/17 05:16 Dose: 2.5 mg Admin: 12/10/17 20:09 Dose: 2.5 mg Admin: 12/10/17 14:56 Dose: 2.5 mg Docusate Sodium (Colace) 100 mg PO BID [facility] Last Admin: 12/13/17 08:15 Dose: 100 mg Admin: 12/12/17 20:40 Dose: 100 mg Heparin Sodium (Porcine) (Heparin Sodium) 5,000 units SUBCUT Q12H [facility] Last Admin: 12/13/17 06:16 Dose: 5,000 units Admin: 12/12/17 17:04 Dose: 5,000 units Admin: 12/12/17 07:02 Dose: 5,000 units Admin: 12/11/17 17:02 Dose: 5,000 units Admin: 12/11/17 05:07 Dose: 5,000 units Admin: 12/10/17 18:13 Dose: 5,000 units Hydromorphone HCl (Dilaudid) 0.5 mg IVPUSH Q1H PRN PRN Reason: Pain Last Admin: 12/13/17 12:46 Dose: 0.5 mg Admin: 12/11/17 21:24 Dose: 0.5 mg Admin: 12/11/17 13:36 Dose: 0.5 mg Admin: 12/11/17 05:06 Dose: 0.5 mg Admin: 12/10/17 21:21 Dose: 0.5 mg Piperacillin Sod/Tazobactam (Sod 4.5 gm/ Sodium Chloride) 100 mls @ 25 mls/hr IV Q8H [facility] Last Admin: 12/13/17 08:17 Dose: 25 mls/hr Infusion: 12/13/17 03:23 Dose: 25 mls/hr Admin: 12/12/17 23:23 Dose: 25 mls/hr Infusion: 12/12/17 21:04 Dose: 25 mls/hr Admin: 12/12/17 17:04 Dose: 25 mls/hr Infusion: 12/12/17 13:07 Dose: 25 mls/hr Admin: 12/12/17 09:07 Dose: 25 mls/hr Infusion: 12/12/17 03:34 Dose: 25 mls/hr Admin: 12/11/17 23:34 Dose: 25 mls/hr Infusion: 12/11/17 21:02 Dose: 25 mls/hr Admin: 12/11/17 17:02 Dose: 25 mls/hr Infusion: 12/11/17 12:26 Dose: 25 mls/hr Admin: 12/11/17 08:26 Dose: 25 mls/hr Infusion: 12/11/17 04:45 Dose: 25 mls/hr Admin: 12/11/17 00:45 Dose: 25 mls/hr Infusion: 12/10/17 19:46 Dose: 25 mls/hr Admin: 12/10/17 15:46 Dose: 25 mls/hr Infusion: 12/10/17 12:23 Dose: 25 mls/hr Admin: 12/10/17 08:23 Dose: 25 mls/hr Infusion: 12/10/17 03:31 Dose: 25 mls/hr Admin: 12/09/17 23:31 Dose: 25 mls/hr Levothyroxine Sodium (Synthroid) 100 mcg PO DAILY [facility] Last Admin: 12/13/17 08:16 Dose: 100 mcg Admin: 12/12/17 09:08 Dose: 100 mcg Admin: 12/11/17 08:25 Dose: 100 mcg Metformin HCl (Glucophage) 750 mg PO BEDTIME [facility] Last Admin: 12/12/17 20:41 Dose: 750 mg Ondansetron HCl (Zofran) 4 mg IVPUSH Q8H PRN PRN Reason: Nausea Rosuvastatin Calcium (Crestor) 5 mg PO DAILY [facility] Last Admin: 12/13/17 08:15 Dose: 5 mg Admin: 12/12/17 09:09 Dose: 5 mg Admin: 12/11/17 08:24 Dose: 5 mg - Plan Plan (Free Text/Narrative):: discharge dictated AISHWARYA
--- NOTE | 2017-12-13 15:29 | DISCH ---
ADMISSION DATE: 12/09/2017 DISCHARGE DATE: 12/13/2017 HISTORY: This is a 62-year-old who presented to the clinic on Thursday last, with persistent abdominal pain after being seen over the weekend in the emergency room and having had the diagnosis of cholelithiasis. The patient at that time was complaining, as stated, of constant abdominal pain and night sweats. PAST MEDICAL HISTORY: Detailed in the H and P. PAST SURGICAL HISTORY: Detailed in the H and P. PHYSICAL EXAMINATION: GI: At the time of admission showed acute tenderness in the right upper quadrant. HEART AND LUNGS: Unremarkable. HEAD AND NECK: Unremarkable. MUSCULOSKELETAL: Unremarkable. HOSPITAL COURSE: The patient, at the time of the evaluation, was felt to have acute cholecystitis and needed an emergent operation. That afternoon, she was brought to the operating room, where a laparoscopy showed a necrotic gallbladder and an open cholecystectomy was performed. Cholangiogram was not done because the cystic duct opening could not be identified. The patient was placed on Zosyn and antibiotics, and this was continued postoperatively. She was placed in the hospital and did develop a low-grade fever of 101. She was given pulmonary toilet; incentive spirometer, deep breathing and coughing; and albuterol inhalers. The patient gradually improved. GI function returned. Antibiotics were continued. DVT prophylaxis was given of heparin. Under this regimen, the patient improved and diet returned. She was started on a clear liquid diet and advanced to regular diet. She diuresed, and her condition improved such that she could be discharged. At the time of her discharge, her Demetrio-Randle drain was only draining serous fluid, and this was removed before discharge. She was sent home on a 3-day course of amoxicillin, pain medication, and instructions of no work, pushing, shoving, or pulling. During her hospital stay, her diabetes was managed by just following her blood sugars, none of them went over 200, and metformin was re-established in the hospital, and she maintained good blood sugars. CONDITION ON DISCHARGE: Improved. DIAGNOSES: 1. Acute cholecystitis, gangrenous gallbladder, status post open cholecystectomy. 2. Postoperative fever, improved with good pulmonary toilet. PLAN: To follow up the patient on of this week. No work. Diet regular. Medications, as per medication reconciliation form. ADDITIONAL DIAGNOSIS: Diabetes type 2. FINAL DIAGNOSIS: DISCHARGE MEDICATIONS: DIET: ACTIVITY: FOLLOW-UP: MMODAL /[id number]
== END 2017-12-13 14:04 | disposition home or self-care (01) | DRG 414 ==
LOC: JD.SDS 11:38 → JD.MS 15:59
PROVIDERS: ADMIT Surgery; ATTEND Surgery
PROC: 0FT40ZZ Resection of Gallbladder, Open Approach (ICD-10-PCS; principal; 2017-12-09)
PROC: 0FJ44ZZ Inspection of Gallbladder, Percutaneous Endoscopic Approach (ICD-10-PCS; 2017-12-09)
DX: K80.00 Calculus of gallbladder with acute cholecystitis without obstruction (principal); K65.8 Other peritonitis; E11.9 Type 2 diabetes mellitus without complications; E78.5 Hyperlipidemia, unspecified; E89.0 Postprocedural hypothyroidism; H54.7 Unspecified visual loss; E78.00 Pure hypercholesterolemia, unspecified; J45.909 Unspecified asthma, uncomplicated; K21.9 Gastro-esophageal reflux disease without esophagitis; M19.90 Unspecified osteoarthritis, unspecified site; G89.29 Other chronic pain; M41.9 Scoliosis, unspecified; Z90.710 Acquired absence of both cervix and uterus; Z79.82 Long term (current) use of aspirin; Z79.899 Other long term (current) drug therapy; Z88.1 Allergy status to other antibiotic agents; Z88.2 Allergy status to sulfonamides; Z79.84 Long term (current) use of oral hypoglycemic drugs
CPT/HCPCS: 00790; 36415; 82962; 85025; 94640; 94761; A9270-GY; J0295; J1170; J1644; J1885; J2250; J2370; J2543; J2704; J2710; J3010; J3490; J7030; J7120; Q9967

== ENCOUNTER 2019-04-05 09:01 | Day surgery (SDC) | payer OTHER ==
[~2019-04-05 09:01] MED LIST changes: +Lidocaine 1% 4 ML ONE; +Lidocaine 1%/Sod Bicarbonate in NS 8.4% 1 ML Syringe IDERM PRN; -Lidocaine 1%/Sod Bicarbonate in NS 8.4% 1 ML Syringe PRN; +Propofol 200 MG/20 ML SDV ONE; +fentaNYL 100 MCG/2 ML SDV ONE
--- NOTE | 2019-04-05 09:58 | PCM.PREANE ---
Preanesthetic Assessment - Procedure Proposed Procedure: colonoscopy - Anesthesia/Transfusion/Family Hx Anesthesia History: Prior Anesthesia Without Reaction Family History of Anesthesia Reaction: No Transfusion History: No Prior Transfusion(s) - Review of Systems General: No Symptoms Pulmonary: No Symptoms Cardiovascular: No Symptoms Gastrointestinal: No Symptoms Neurological: No Symptoms Other: Reports: Diabetes (pre), Thyroid Problems - Physical Assessment NPO Status Date: 04/04/19 NPO Status Time: 21:30 Vital Signs: Last Vital Signs Temp 97.5 F 04/05/19 09:06 Pulse 65 04/05/19 09:06 Resp 17 04/05/19 09:06 BP 127/66 04/05/19 09:06 Pulse Ox 96 04/05/19 09:06 Height: 5 ft 3 in Weight: 74.389 kg ASA Class: 2 Mental Status: Alert & Oriented x3 Airway Class: Mallampati = 1 Dentition: Reports: Normal Dentition Thyro-Mental Finger Breadths: 3 Mouth Opening Finger Breadths: 2 ROM/Head Extension: Full Lungs: Clear to Auscultation, Normal Respiratory Effort Cardiovascular: Regular Rate, Regular Rhythm - Allergies Allergies/Adverse Reactions: Allergies Allergy/AdvReac Type Severity Reaction Status Date / Time Sulfa (Sulfonamide Allergy Rash Verified 04/05/19 09:39 Antibiotics) tetracycline Allergy Rash Verified 04/05/19 09:39 ciprofloxacin [From Cipro] AdvReac Dizziness Verified 04/05/19 09:39 metronidazole [From Flagyl] AdvReac Dizziness Verified 04/05/19 09:39 - Blood Blood Available: No - Acknowledgements Anesthesia Type Planned: MAC Pt an Appropriate Candidate for the Planned Anesthesia: Yes Alternatives and Risks of Anesthesia Discussed w Pt/Guardian: Yes Pt/Guardian Understands and Agrees with Anesthesia Plan: Yes PreAnesthesia Questionnaire HEENT History: Reports: Allergic Rhinitis, Impaired Vision, Sinusitis, Other ( See Below) Other HEENT History: hoarseness, conjunctivitis, wears glasses Cardiovascular History: Reports: High Cholesterol Respiratory History: Reports: Asthma (not use inhalers routinely= january 2019-- last used end of feb), Pneumonia, Recurrent Other Respiratory History: Acute Respiratory Distress back in January 2017 Other Gastrointestinal History: dysphagia, elevated LFTs Genitourinary History: [employer] History: Reports: None Musculoskeletal History: Reports: Arthritis, Back Pain, Chronic, Other (See Below) Other Musculoskeletal History: chronic hip pain, scoliosis Neurological History: Reports: None Psychiatric History: Reports: None Endocrine/Metabolic History: Reports: Diabetes, Type II, Hypothyroidism, Vitamin D Deficiency Hematologic History: Reports: None Immunologic History: Reports: None Oncologic (Cancer) History: Reports: None Dermatologic History: Reports: Cellulitis - Infectious Disease History Infectious Disease History: Reports: Chicken Pox, Measles - Past Surgical History Head Surgeries/Procedures: Reports: None HEENT Surgical History: Reports: Adenoidectomy, Naso-Sinus Surgery, Oral Surgery , Tonsillectomy Cardiovascular Surgical History: Reports: None Respiratory Surgical History: Reports: None GI Surgical History: Reports: Appendectomy, Cholecystectomy, Colonoscopy, EGD, Esophageal Dilatation Other GI Surgeries/Procedures: esophageal dilation Female Surgical History: Reports: Section, D&C, Hysterectomy Endocrine Surgical History: Reports: Thyroidectomy Other Endocrine Surgeries/Procedures: partial thyroidectomy Neurological Surgical History: Reports: None Musculoskeletal Surgical History: Reports: Carpal Tunnel Other Musculoskeletal Surgeries/Procedures:: carpal tunnel surgery Oncologic Surgical History: Reports: None - SUBSTANCE USE Smoking Status *Q: Never Smoker Tobacco Use Within Last Twelve Months: No Second Hand Smoke Exposure: No Days Per Week of Alcohol Use: 5 Number of Drinks Per Day: 2 Total Drinks Per Week: 10 Recreational Drug Use History: No - HOME MEDS Home Medications: Home Meds Cetirizine [ZyrTEC] 10 mg PO BEDTIME 10/14/16 [History] Flaxseed Oil [Flax Oil] 1,000 mg PO DAILY 10/14/16 [History] Glucosam/Chondr/Collagn/Hyalur [Glucosamine & Chondroitin Cap] 2 cap PO DAILY [History] Levothyroxine [Synthroid] 100 mcg PO DAILY 10/14/16 [History] Meloxicam 15 mg PO QPM 10/14/16 [History] Rosuvastatin Calcium 5 mg PO DAILY 10/14/16 [History] Ubidecarenone [Coq-10] 100 mg PO DAILY 10/14/16 [History] traMADol [Ultram] 50 mg PO DAILY PRN 10/14/16 [History] metFORMIN HCl [Metformin HCl ER] 750 mg PO QPM 10/15/16 [History] Albuterol Sulfate 1 dose NEB Q6H PRN 04/04/19 [History] Albuterol [Proventil HFA] 1 - 2 puff INH Q4H PRN 04/04/19 [History] Cholecalciferol (Vitamin D3) [Vitamin D3] 2,000 unit PO DAILY 04/04/19 [History] Fluticasone/Vilanterol [Breo Ellipta 200-25 MCG Inhalation Kit] 1 puff INH DAILY 04/04/19 [History] Promethazine HCl/Codeine [Prometh-Codein 6.25-10 mg/5 ml] 5 ml PO Q4H PRN [History] - CURRENT (IN HOUSE) MEDS Current Meds: Current Medications Lactated Ringer's (Ringers, Lactated) 1,000 mls @ 125 mls/hr IV ASDIRECTED FARHAT Stop: 04/05/19 23:00 Last Admin: 04/05/19 09:25 Dose: 125 mls/hr Lidocaine/Sodium Bicarbonate (Buffered Lidocaine 1% In Ns 8.4%) 0.25 ml IDERM ONETIME PRN PRN Reason: Prior to IV Start Stop: 04/05/19 18:00 Last Admin: 04/05/19 09:25 Dose: 0.25 ml Sodium Chloride (Saline Flush) 10 ml FLUSH ASDIRECTED PRN PRN Reason: Keep Vein Open Stop: 04/05/19 18:00 Discontinued Medications Fentanyl (Sublimaze) Confirm Administered Dose 100 mcg .ROUTE .STK-MED ONE Stop: 04/05/19 06:43 Lidocaine HCl (Xylocaine-Mpf 1%) Confirm Administered Dose 4 mls @ as directed .ROUTE .STK-MED ONE Stop: 04/05/19 06:42 Propofol (Diprivan 20 Ml) Confirm Administered Dose 200 mg .ROUTE .STK-MED ONE Stop: 04/05/19 06:42
[2019-04-05] MEDS ORDERED: Propofol 200 MG/20 ML SDV ONE ×2 (11:58→12:14)
[2019-04-05] MEDS ORDERED: Lactated Ringers 1,000 ML ONE (12:01)
--- NOTE | 2019-04-05 12:41 | PCM48HPAN ---
Post Anesthesia Note - EVALUATION WITHIN 48HRS OF ANESTHETIC Vital Signs in Normal Range: Yes Patient Participated in Evaluation: Yes Respiratory Function Stable: Yes Airway Patent: Yes Cardiovascular Function Stable: Yes Hydration Status Stable: Yes Pain Control Satisfactory: Yes Nausea and Vomiting Control Satisfactory: Yes Mental Status Recovered: Yes Vital Signs: Last Vital Signs Temp 36.4 C 04/05/19 09:06 Pulse 65 04/05/19 09:06 Resp 17 04/05/19 09:06 BP 127/66 04/05/19 09:06 Pulse Ox 96 04/05/19 09:06
--- NOTE | 2019-04-05 12:46 | PCM.PRNOTE ---
- Free Text/Narrative Note: Date: 04/05/2019 Procedure: screening colonoscopy Endoscopist: oJse Loomis MD Findings: excellent prep. Redundant colon. Diverticular disease. No biopsies. Detailed report: The patient was taken to the GI suite and placed in left lateral decubitus position. Timeout was performed and monitored sedation initiated. Visual inspection was normal. There was a palpable posterior pinhead nodule in the anal canal that appeared benign/ related to prior anal fissure. The colonoscope was advanced to the cecum. Prep was excellent. Navigation was a challenge due to redundancy. No polyps were identified. Diverticular disease of the distal colon was noted. The patient tolerated the procedure well. Jose Loomis MD General Surgery
[2019-04-05 12:55] VITALS: BP 125/75; PULSE 69
== END 2019-04-05 13:29 | disposition home or self-care (01) ==
LOC: JD.SDS 09:01
PROVIDERS: ATTEND Surgery
DX: Z12.11 Encounter for screening for malignant neoplasm of colon (principal); K57.30 Diverticulosis of large intestine without perforation or abscess without bleeding; K21.9 Gastro-esophageal reflux disease without esophagitis; J45.909 Unspecified asthma, uncomplicated; E78.00 Pure hypercholesterolemia, unspecified; E78.5 Hyperlipidemia, unspecified; E03.9 Hypothyroidism, unspecified; M19.90 Unspecified osteoarthritis, unspecified site; Z88.1 Allergy status to other antibiotic agents; Z88.2 Allergy status to sulfonamides; Z88.5 Allergy status to narcotic agent; Z79.899 Other long term (current) drug therapy; Z79.84 Long term (current) use of oral hypoglycemic drugs
CPT/HCPCS: 45378; J2001; J2704; J3010; J7120; 00812